=== PATIENT | male | born 1945 | race Caucasian/White ===

== ENCOUNTER 2020-02-03 09:31 | Outpatient (REF) | payer MEDICARE, SELFPAY ==
[2020-02-03 10:55] LABS: MANUAL DIFF FLAG SCAN; PLT CLUMP 1; SCAN SMEAR FLAG 1
[2020-02-03 10:57] LABS: Basophils Absolute Auto 0.1 X10*3/uL (0.0-0.2); Basophils Percent Auto 0.8 % (0-2); Eosinophils Absolute Auto 0.3 X10*3/uL (0.0-0.4); Hematocrit 42.2 % (42-52); Imm Gran Abs Auto 0.04 X10*3/uL (0.00-0.03); Imm Gran Pct Auto 0.7 % (0.0-0.4); Lymphocytes Absolute Auto 1.3 X10*3/uL (1.2-4.9); Mean Corpuscular HGB Conc 33.2 g/dl (31.0-36.0); Mean Corpuscular Hemoglobin 29.2 pg (27.0-33.0); Mean Corpuscular Volume 87.9 fL (80-98); Mean Platelet Volume 11.2 fL (9.4-12.4); Monocytes Absolute Auto 0.5 X10*3/uL (0.1-1.2); Monocytes Percent Auto 8.6 % (2-11); Neutrophils Absolute Auto 3.8 X10*3/uL (2.0-8.3); Neutrophils Percent Auto 63.9 % (45-73)
[2020-02-03 11:02] LABS: Platelet Count 94 X10*3/uL (160-400)
== END 2020-02-03 09:32 | disposition home or self-care (01) ==
LOC: HO.LAB 09:31
PROVIDERS: PCP Internal Medicine; Visit Provider Internal Medicine
DX: D69.6 Thrombocytopenia, unspecified (principal)
CPT/HCPCS: 36415; 85025

== ENCOUNTER 2020-02-26 16:55 | Outpatient (REF) | payer MEDICARE, SELFPAY | END 2020-02-26 16:56 | disposition home or self-care (01) | LOC: HO.LAB 16:55 | PROVIDERS: Visit Provider Internal Medicine | DX: Z20.828 Contact with and (suspected) exposure to other viral communicable diseases (principal) | CPT/HCPCS: C9803; U0003 ==

== ENCOUNTER 2020-09-13 11:06 | Outpatient (REF) | payer MEDICARE, SELFPAY ==
[2020-09-13 12:13] LABS: Glucose Urine UA NEG (NEG); Leukocyte Esterase Urine NEG (NEG); Nitrite Urine NEG (NEG); Specific Gravity - Urine 1.025 (1.005-1.025); Urine Blood NEG (NEG); Urine Ketones NEG (NEG); Urine Protein 2+ MG/DL (NEG-TRACE)
[2020-09-13 12:15] LABS: Appearance Urine CLEAR; Color Urine YELLOW
[2020-09-13 12:22] LABS: RBC Urine 0-2 /HPF (0); WBC Urine 0 /HPF (0-4)
[2020-09-13 12:23] LABS: Basophils Absolute Auto 0.1 X10*3/uL (0.0-0.2); Basophils Percent Auto 0.8 % (0-2); Eosinophils Absolute Auto 0.4 X10*3/uL (0.0-0.4); Eosinophils Percent Auto 5.6 % (0-4); Hemoglobin 13.1 g/dl (14.0-18.0); Imm Gran Abs Auto 0.02 X10*3/uL (0.00-0.03); Imm Gran Pct Auto 0.3 % (0.0-0.4); PLT CLUMP 1; Red Cell Distribution Width 12.7 % (11.0-16.0); SCAN SMEAR FLAG 1
[2020-09-13 12:23] LABS: Squamous Epithelial Cell Urine TRACE /LPF
[2020-09-13 12:26] LABS: Hematocrit 38.8 % (42-52); Lymphocytes Absolute Auto 1.2 X10*3/uL (1.2-4.9); Lymphocytes Percent Auto 19.2 % (20-40); Mean Corpuscular HGB Conc 33.8 g/dl (31.0-36.0); Mean Corpuscular Hemoglobin 29.9 pg (27.0-33.0); Mean Corpuscular Volume 88.6 fL (80-98); Monocytes Absolute Auto 0.5 X10*3/uL (0.1-1.2); Monocytes Percent Auto 7.8 % (2-11); Neutrophils Absolute Auto 4.3 X10*3/uL (2.0-8.3); Neutrophils Percent Auto 66.3 % (45-73); Platelet Count 105 X10*3/uL (160-400); Red Blood Count 4.38 X10*6/uL (4.60-5.80); White Blood Count 6.4 X10*3/uL (4.8-10.8)
[2020-09-13 12:47] LABS: Anion Gap 12 (12-20); Blood Urea Nitrogen 22 mg/dL (9-16); Calcium 11.2 mg/dL (8.4-10.2); Carbon Dioxide 30 mmol/L (22-29); Chloride 101 mmol/L (96-108); Estimated Glomerular Filt Rate 43; Potassium 4.2 mmol/L (3.3-5.1); Sodium 139 mmol/L (135-145)
== END 2020-09-13 11:07 | disposition home or self-care (01) ==
LOC: HO.LAB 11:06
PROVIDERS: PCP Internal Medicine; Visit Provider Internal Medicine Hypertension Specialist
DX: E11.29 Type 2 diabetes mellitus with other diabetic kidney complication (principal); I12.9 Hypertensive chronic kidney disease with stage 1 through stage 4 chronic kidney disease, or unspecified chronic kidney disease; N18.30 Chronic kidney disease, stage 3 unspecified; N20.0 Calculus of kidney
CPT/HCPCS: 36415; 80051; 81001; 82310; 82565; 84520; 85025

== ENCOUNTER 2020-09-16 08:00 | Outpatient (REF) | payer MEDICARE, SELFPAY ==
[2020-09-17 12:19] LABS: Calcium 10.4 mg/dL (8.4-10.2)
== END 2020-09-16 08:01 | disposition home or self-care (01) ==
LOC: HO.LNP 08:00
PROVIDERS: Visit Provider Internal Medicine
DX: E83.52 Hypercalcemia (principal)
CPT/HCPCS: 82310

== ENCOUNTER 2020-11-25 10:12 | Outpatient (REF) | payer MEDICARE, SELFPAY ==
[2020-11-25 10:57] LABS: Estimated Average Glucose 160 mg/dL; Hemoglobin A1c % 7.2 %
[2020-11-25 10:58] LABS: Alanine Aminotransferase 34 U/L (0-40); Albumin Level 4.1 g/dL (3.5-5.0); Alkaline Phosphatase 83 U/L (39-117); Aspartate Amino Transferase 23 U/L (5-37); Bilirubin Direct 0.2 mg/dL (0.0-0.5); Bilirubin Total 0.7 mg/dL (0.0-1.0); Cholesterol 112 mg/dL; Glucose Fasting 159 mg/dL (60-99); HDL Cholesterol 26 mg/dL; LDL Cholesterol Calculated 12 mg/dl; Total Protein 6.7 g/dL (6.5-8.0); Triglycerides 374 mg/dL
[2020-11-25 11:02] LABS: Reflex LDLD? No
== END 2020-11-25 10:13 | disposition home or self-care (01) ==
LOC: HO.LNP 10:12
PROVIDERS: Visit Provider Internal Medicine
DX: E11.40 Type 2 diabetes mellitus with diabetic neuropathy, unspecified (principal); E78.00 Pure hypercholesterolemia, unspecified
CPT/HCPCS: 80061; 80076; 82947; 83036

== ENCOUNTER 2021-06-02 11:40 | Outpatient (REF) | payer MEDICARE, SELFPAY ==
[2021-06-02 11:45] LABS: MANUAL DIFF FLAG NO
[2021-06-02 11:56] LABS: Appearance Urine CLEAR; Color Urine YELLOW; Glucose Urine UA NEG (NEG); Leukocyte Esterase Urine NEG (NEG); Nitrite Urine NEG (NEG); Specific Gravity - Urine 1.025 (1.005-1.025); Urine Blood NEG (NEG); Urine Ketones NEG (NEG); Urine Protein 2+ MG/DL (NEG-TRACE)
[2021-06-02 12:00] LABS: Basophils Absolute Auto 0.1 X10*3/uL (0.0-0.2); Basophils Percent Auto 0.8 % (0-2); Eosinophils Absolute Auto 0.4 X10*3/uL (0.0-0.4); Eosinophils Percent Auto 6.1 % (0-4); Hematocrit 40.6 % (42.0-52.0); Hemoglobin 13.6 g/dl (14.0-18.0); Imm Gran Abs Auto 0.03 X10*3/uL (0.00-0.03); Imm Gran Pct Auto 0.4 % (0.0-0.4); Lymphocytes Absolute Auto 1.8 X10*3/uL (1.2-4.9); Lymphocytes Percent Auto 24.8 % (20-40); Mean Corpuscular HGB Conc 33.5 g/dl (31.0-36.0); Mean Corpuscular Hemoglobin 29.4 pg (27.0-33.0); Mean Corpuscular Volume 87.9 fL (80.0-98.0); Mean Platelet Volume 11.4 fL (9.4-12.4); Monocytes Absolute Auto 0.7 X10*3/uL (0.1-1.2); Monocytes Percent Auto 9.3 % (2-11); Neutrophils Absolute Auto 4.2 x10*3/uL (2.0-8.3); Neutrophils Percent Auto 58.6 % (45-73); Platelet Count 103 X10*3/uL (160-400); Red Blood Count 4.62 X10*6/uL (4.60-5.80); Red Cell Distribution Width 13.2 % (11.0-16.0); White Blood Count 7.1 X10*3/uL (4.8-10.8)
[2021-06-02 12:05] LABS: Alanine Aminotransferase 38 U/L (0-40); Albumin Level 4.2 g/dL (3.5-5.0); Alkaline Phosphatase 75 U/L (39-117); Anion Gap 11 (12-20); Aspartate Amino Transferase 25 U/L (5-37); Bilirubin Total 0.8 mg/dL (0.0-1.0); Blood Urea Nitrogen 30 mg/dL (9-16); Calcium 10.1 mg/dL (8.4-10.2); Carbon Dioxide 29 mmol/L (22-29); Chloride 102 mmol/L (96-108); Cholesterol 131 mg/dL; Estimated Glomerular Filt Rate 37; Glucose Fasting 151 mg/dL (60-99); HDL Cholesterol 25 mg/dL; Sodium 138 mmol/L (135-145); Total Protein 6.9 g/dL (6.5-8.0); Triglycerides 487 mg/dL
[2021-06-02 12:12] LABS: Estimated Average Glucose 171 mg/dL; Hemoglobin A1c % 7.6 %
[2021-06-02 12:28] LABS: RBC Urine 0 /HPF (0); Squamous Epithelial Cell Urine TRACE /LPF; WBC Urine 0 /HPF (0-4)
[2021-06-02 12:57] LABS: PSA,Total (Free>4and<10) 2.66 ng/mL (0.00-4.00)
[2021-06-02 13:05] LABS: Creatinine Urine 74.71 mg/dL
[2021-06-02 13:28] LABS: Microalbum/Creatinine Ratio Ur 686.6 ug/mg cr
== END 2021-06-02 11:41 | disposition home or self-care (01) ==
LOC: HO.LNP 11:40
PROVIDERS: PCP Internal Medicine; Visit Provider Internal Medicine
DX: Z12.5 Encounter for screening for malignant neoplasm of prostate (principal); E11.40 Type 2 diabetes mellitus with diabetic neuropathy, unspecified; D69.6 Thrombocytopenia, unspecified; E78.00 Pure hypercholesterolemia, unspecified; N40.0 Benign prostatic hyperplasia without lower urinary tract symptoms
CPT/HCPCS: 80053; 80061; 81001; 81003; 82043; 83036; 84153; 85025

== ENCOUNTER 2021-09-20 14:44 | Outpatient (REF) | payer MEDICARE, SELFPAY ==
[2021-09-20 15:01] LABS: MANUAL DIFF FLAG NO
[2021-09-20 15:50] LABS: Basophils Absolute Auto 0.1 X10*3/uL (0.0-0.2); Basophils Percent Auto 0.8 % (0-2); Eosinophils Absolute Auto 0.4 X10*3/uL (0.0-0.4); Eosinophils Percent Auto 5.4 % (0-4); Hemoglobin 13.9 g/dl (14.0-18.0); Imm Gran Abs Auto 0.02 X10*3/uL (0.00-0.03); Imm Gran Pct Auto 0.3 % (0.0-0.4); Lymphocytes Absolute Auto 1.5 X10*3/uL (1.2-4.9); Lymphocytes Percent Auto 20.2 % (20-40); Mean Corpuscular HGB Conc 33.1 g/dl (31.0-36.0); Mean Corpuscular Hemoglobin 29.1 pg (27.0-33.0); Mean Corpuscular Volume 87.9 fL (80.0-98.0); Monocytes Absolute Auto 0.5 X10*3/uL (0.1-1.2); Neutrophils Absolute Auto 4.9 x10*3/uL (2.0-8.3); Neutrophils Percent Auto 66.3 % (45-73); Platelet Count 131 X10*3/uL (160-400); Red Blood Count 4.78 X10*6/uL (4.60-5.80); Red Cell Distribution Width 13.2 % (11.0-16.0); White Blood Count 7.4 X10*3/uL (4.8-10.8)
[2021-09-20 16:04] LABS: Creatinine Urine 128.93 mg/dL; Protein/Creatinine Ratio, Ur 0.57 (<0.2); Total Protein Urine Random 73 mg/dL (<12)
[2021-09-20 16:14] LABS: Alanine Aminotransferase 34 U/L (0-40); Albumin Level 4.3 g/dL (3.5-5.0); Alkaline Phosphatase 81 U/L (39-117); Anion Gap 14 (12-20); Aspartate Amino Transferase 22 U/L (5-37); Bilirubin Total 1.1 mg/dL (0.0-1.0); Blood Urea Nitrogen 27 mg/dL (9-16); Calcium 10.6 mg/dL (8.4-10.2); Carbon Dioxide 26 mmol/L (22-29); Chloride 104 mmol/L (96-108); Estimated Glomerular Filt Rate 35; Glucose Random 132 mg/dL (60-115); Sodium 139 mmol/L (135-145); Total Protein 7.1 g/dL (6.5-8.0)
== END 2021-09-20 14:45 | disposition home or self-care (01) ==
LOC: HO.LAB 14:44
PROVIDERS: PCP Internal Medicine; Visit Provider Internal Medicine Hypertension Specialist
DX: I12.9 Hypertensive chronic kidney disease with stage 1 through stage 4 chronic kidney disease, or unspecified chronic kidney disease (principal); N18.9 Chronic kidney disease, unspecified
CPT/HCPCS: 36415; 80053; 84156; 85025

== ENCOUNTER 2021-12-09 10:28 | Outpatient (REF) | payer MEDICARE, SELFPAY ==
[2021-12-09 11:31] LABS: Estimated Average Glucose 157 mg/dL; Hemoglobin A1c % 7.1 %
[2021-12-09 11:36] LABS: Alanine Aminotransferase 31 U/L (0-40); Albumin Level 4.2 g/dL (3.5-5.0); Alkaline Phosphatase 92 U/L (39-117); Aspartate Amino Transferase 20 U/L (5-37); Bilirubin Direct 0.3 mg/dL (0.0-0.5); Bilirubin Total 0.8 mg/dL (0.0-1.0); Cholesterol 114 mg/dL; Glucose Fasting 153 mg/dL (60-99); HDL Cholesterol 26 mg/dL; LDL Cholesterol Calculated 28 mg/dl; Total Protein 6.9 g/dL (6.5-8.0); Triglycerides 300 mg/dL
[2021-12-09 13:27] LABS: Reflex LDLD? No
== END 2021-12-09 10:29 | disposition home or self-care (01) ==
LOC: HO.LNP 10:28
PROVIDERS: Visit Provider Internal Medicine
DX: Z13.89 Encounter for screening for other disorder (principal)
CPT/HCPCS: 80061; 80076; 82947; 83036

== ENCOUNTER 2022-01-19 14:28 | Outpatient (REF) | payer MEDICARE, SELFPAY ==
[2022-01-19 15:09] LABS: Appearance Urine Clear; Color Urine Yellow; Glucose Urine UA >=1000 mg/dL (Negative); Leukocyte Esterase Urine Negative (Negative); Nitrite Urine Negative (Negative); PH 5.5 (5.0-9.0); Specific Gravity - Urine 1.025 (1.005-1.025); UMIC TRIGGER UA YES; Urine Blood Negative (Negative); Urine Ketones Negative (Negative); Urine Protein 100 (2+) mg/dL (Neg-Trace)
[2022-01-19 15:11] LABS: Bacteria Urine None Seen (None Seen); Hyaline Casts Urine 0-2 /LPF (0-2); RBC Urine 0-2 /HPF (0-2); Squamous Epithelial Cell Urine 0-2 /HPF (0-2); WBC Urine 0-5 /HPF (0-5)
[2022-01-19 15:43] LABS: Alanine Aminotransferase 40 U/L (0-40); Albumin Level 4.4 g/dL (3.5-5.0); Alkaline Phosphatase 100 U/L (39-117); Anion Gap 18 (12-20); Aspartate Amino Transferase 25 U/L (5-37); Bilirubin Total 0.5 mg/dL (0.0-1.0); Blood Urea Nitrogen 31 mg/dL (9-16); Calcium 10.4 mg/dL (8.4-10.2); Carbon Dioxide 25 mmol/L (22-29); Chloride 103 mmol/L (96-108); Estimated Glomerular Filt Rate 37; Glucose Random 135 mg/dL (60-115); Potassium 4.6 mmol/L (3.3-5.1); Sodium 141 mmol/L (135-145); Total Protein 7.2 g/dL (6.5-8.0)
[2022-01-19 15:44] LABS: Creatinine Urine 78.03 mg/dL; Protein/Creatinine Ratio, Ur 0.83 (<0.2); Total Protein Urine Random 65 mg/dL (<12)
[2022-01-19 16:06] LABS: Vitamin D 25-OH Total 67.7 ng/mL (>30)
[2022-01-20 12:47] LABS: Calcium (PTHI) 10.2 mg/dL (8.6-10.3); PTHI 48 pg/mL (16-77)
== END 2022-01-19 14:29 | disposition home or self-care (01) ==
LOC: HO.LAB 14:28
PROVIDERS: PCP Internal Medicine; Visit Provider Internal Medicine Hypertension Specialist
DX: N18.31 Chronic kidney disease, stage 3a (principal)
CPT/HCPCS: 36415; 80053; 81001; 81003; 82306; 83970; 84156

== ENCOUNTER 2022-02-13 10:03 | Outpatient (REF) | payer MEDICARE, SELFPAY ==
[2022-02-14 13:06] LABS: Calcium (PTHI) 10.2 mg/dL (8.6-10.3); PTHI 34 pg/mL (16-77)
[2022-02-14 23:07] LABS: Prot Elec - Alpha1 0.3 g/dL (0.2-0.3); Prot Elec - Alpha2 0.8 g/dL (0.5-0.9); Prot Elec - Beta 1 0.4 g/dL (0.4-0.6); Prot Elec - Beta 2 0.3 g/dL (0.2-0.5); Prot Elec - Gamma 0.9 g/dL (0.8-1.7); Prot Elec - Total Protein 6.7 g/dL (6.1-8.1)
[2022-02-15 15:02] LABS: IgA 129 mg/dL (70-320); IgG 987 mg/dL (600-1540); IgM 162 mg/dL (50-300)
[2022-02-17 20:11] LABS: Kappa Light Chains Quant. RU <1.00 mg/dL (<2.00); Lambda Light Chains Quant. RU <1.00 mg/dL (<2.00)
== END 2022-02-13 10:04 | disposition home or self-care (01) ==
LOC: HO.10HDL 10:03
PROVIDERS: Visit Provider Internal Medicine Hypertension Specialist
DX: N18.32 Chronic kidney disease, stage 3b (principal)
CPT/HCPCS: 36415; 82784; 83883; 83970; 84165; 86334

== ENCOUNTER 2022-06-09 07:47 | Outpatient (REF) | payer MEDICARE, SELFPAY ==
[2022-06-09 10:42] LABS: MANUAL DIFF FLAG NO
[2022-06-09 10:45] LABS: Basophils Percent Auto 0.5 % (0-2); Eosinophils Absolute Auto 0.5 X10*3/uL (0.0-0.4); Eosinophils Percent Auto 5.8 % (0-4); Hematocrit 37.2 % (42.0-52.0); Hemoglobin 12.3 g/dl (14.0-18.0); Imm Gran Abs Auto 0.07 X10*3/uL (0.00-0.03); Imm Gran Pct Auto 0.9 % (0.0-0.4); Lymphocytes Absolute Auto 1.2 X10*3/uL (1.2-4.9); Lymphocytes Percent Auto 14.5 % (20-40); Mean Corpuscular HGB Conc 33.1 g/dl (31.0-36.0); Mean Corpuscular Hemoglobin 28.8 pg (27.0-33.0); Mean Corpuscular Volume 87.1 fL (80.0-98.0); Mean Platelet Volume 10.8 fL (9.4-12.4); Monocytes Absolute Auto 0.7 X10*3/uL (0.1-1.2); Monocytes Percent Auto 8.4 % (2-11); Neutrophils Absolute Auto 5.6 x10*3/uL (2.0-8.3); Neutrophils Percent Auto 69.9 % (45-73); Platelet Count 154 X10*3/uL (160-400); Red Blood Count 4.27 X10*6/uL (4.60-5.80); Red Cell Distribution Width 13.3 % (11.0-16.0)
[2022-06-09 10:52] LABS: Anion Gap 13 (12-20); Blood Urea Nitrogen 27 mg/dL (9-16); Calcium 9.4 mg/dL (8.4-10.2); Carbon Dioxide 26 mmol/L (22-29); Chloride 104 mmol/L (96-108); Estimated Glomerular Filt Rate 41; Glucose Random 183 mg/dL (60-115); Potassium 4.4 mmol/L (3.3-5.1); Sodium 139 mmol/L (135-145)
== END 2022-06-09 07:48 | disposition home or self-care (01) ==
LOC: HO.10HDL 07:47
PROVIDERS: Visit Provider Internal Medicine Hypertension Specialist
DX: Z13.89 Encounter for screening for other disorder (principal)
CPT/HCPCS: 36415; 80048; 85025

== ENCOUNTER 2022-06-09 11:07 | Outpatient (REF) | payer MEDICARE, SELFPAY ==
[2022-06-09 11:12] LABS: MANUAL DIFF FLAG NO
[2022-06-09 11:41] LABS: Basophils Absolute Auto 0.1 X10*3/uL (0.0-0.2); Basophils Percent Auto 0.6 % (0-2); Eosinophils Absolute Auto 0.5 X10*3/uL (0.0-0.4); Eosinophils Percent Auto 6.4 % (0-4); Hemoglobin 12.5 g/dl (14.0-18.0); Imm Gran Abs Auto 0.04 X10*3/uL (0.00-0.03); Imm Gran Pct Auto 0.5 % (0.0-0.4); Lymphocytes Absolute Auto 1.2 X10*3/uL (1.2-4.9); Lymphocytes Percent Auto 15.9 % (20-40); Mean Corpuscular HGB Conc 32.9 g/dl (31.0-36.0); Mean Corpuscular Hemoglobin 28.9 pg (27.0-33.0); Mean Platelet Volume 11.1 fL (9.4-12.4); Monocytes Absolute Auto 0.7 X10*3/uL (0.1-1.2); Neutrophils Absolute Auto 5.3 x10*3/uL (2.0-8.3); Neutrophils Percent Auto 67.6 % (45-73); Platelet Count 153 X10*3/uL (160-400); Red Blood Count 4.32 X10*6/uL (4.60-5.80); Red Cell Distribution Width 13.3 % (11.0-16.0); White Blood Count 7.8 X10*3/uL (4.8-10.8)
[2022-06-09 11:46] LABS: Appearance Urine Clear; Color Urine Yellow; Glucose Urine UA >=1000 mg/dL (Negative); Leukocyte Esterase Urine Negative (Negative); Nitrite Urine Negative (Negative); PH 5.5 (5.0-9.0); Specific Gravity - Urine 1.025 (1.005-1.025); UMIC TRIGGER UACC YES; Urine Blood Negative (Negative); Urine Ketones Negative (Negative); Urine Protein 100 (2+) mg/dL (Neg-Trace)
[2022-06-09 11:50] LABS: Estimated Average Glucose 180 mg/dL; Hemoglobin A1c % 7.9 %
[2022-06-09 11:52] LABS: Bacteria Urine None Seen (None Seen); Hyaline Casts Urine 0-2 /LPF (0-2); RBC Urine 0-2 /HPF (0-2); Squamous Epithelial Cell Urine 0-2 /HPF (0-2); WBC Urine 0-5 /HPF (0-5)
[2022-06-09 12:07] LABS: Alanine Aminotransferase 34 U/L (0-40); Albumin Level 3.8 g/dL (3.5-5.0); Alkaline Phosphatase 88 U/L (39-117); Anion Gap 14 (12-20); Aspartate Amino Transferase 26 U/L (5-37); Bilirubin Total 1.5 mg/dL (0.0-1.0); Blood Urea Nitrogen 28 mg/dL (9-16); Calcium 9.2 mg/dL (8.4-10.2); Carbon Dioxide 25 mmol/L (22-29); Chloride 105 mmol/L (96-108); Cholesterol 108 mg/dL; Estimated Glomerular Filt Rate 39; Glucose Fasting 185 mg/dL (60-99); HDL Cholesterol 25 mg/dL; LDL Cholesterol Calculated 43 mg/dl; Potassium 4.3 mmol/L (3.3-5.1); Sodium 140 mmol/L (135-145); Total Protein 6.2 g/dL (6.5-8.0); Triglycerides 202 mg/dL
[2022-06-09 12:25] LABS: PSA,Total (Free>4and<10) 4.23 ng/mL (0.00-4.00)
[2022-06-09 12:41] LABS: Creatinine Urine 100.29 mg/dL
[2022-06-11 10:14] LABS: Free Prostate Spec Ag 0.8 ng/mL; Percent Free Prostate Spec Ag 22 % (calc) (>25); Prostate Specific Ag Total 3.6 ng/mL (< OR = 4.0)
== END 2022-06-09 11:08 | disposition home or self-care (01) ==
LOC: HO.LNP 11:07
PROVIDERS: Visit Provider Internal Medicine
DX: Z12.5 Encounter for screening for malignant neoplasm of prostate (principal); E11.40 Type 2 diabetes mellitus with diabetic neuropathy, unspecified; N40.0 Benign prostatic hyperplasia without lower urinary tract symptoms; D69.6 Thrombocytopenia, unspecified; E78.00 Pure hypercholesterolemia, unspecified
CPT/HCPCS: 36415; 80048; 80053; 80061; 81001; 82043; 83036; 84153; 84154; 85025

== ENCOUNTER 2022-07-17 10:46 | Outpatient (REF) | payer MEDICARE, SELFPAY ==
[2022-07-17 12:17] LABS: PSA,Total (Free>4and<10) 3.78 ng/mL (0.00-4.00)
== END 2022-07-17 10:47 | disposition home or self-care (01) ==
LOC: HO.LNP 10:46
PROVIDERS: Visit Provider Internal Medicine
DX: Z12.5 Encounter for screening for malignant neoplasm of prostate (principal); R97.20 Elevated prostate specific antigen [PSA]
CPT/HCPCS: 84153

== ENCOUNTER 2022-09-26 14:39 | Outpatient (REF) | payer MEDICARE, SELFPAY ==
--- NOTE | ~2022-09-26 | US_ITS ---
EXAMINATION: Noninvasive assessment of the bilateral lower extremities with ARTERIAL DUPLEX. CLINICAL INFORMATION: Peripheral vascular disease, claudication TECHNIQUE: Duplex Doppler techniques with waveform analysis and measurement of velocities in the bilateral common femoral, profunda femoris, superficial femoral, popliteal and tibial arteries were performed. COMPARISON: None FINDINGS: DIRECT DUPLEX DOPPLER FINDINGS: RIGHT LEG: Common femoral artery: 103 cm/s, phasicity: Triphasic Profunda femoris artery: 77.1 cm/s, phasicity: Biphasic Superficial femoral artery (proximal): 106 cm/s, phasicity: Triphasic Superficial femoral artery (mid): 120 cm/s, phasicity: Triphasic Superficial femoral artery (distal): 79.9 cm/s, phasicity: Triphasic Popliteal artery: 62.6 cm/s, phasicity: Triphasic Posterior tibial artery(distal): 198 cm/s, phasicity: Triphasic Peroneal artery: 85.6 cm/s, phasicity: Triphasic LEFT LEG: Common femoral artery: 92.5 cm/s, phasicity: Triphasic Profunda femoris artery: 77.7 cm/s, phasicity: Biphasic Superficial femoral artery (proximal): 106 cm/s, phasicity: Triphasic Superficial femoral artery (mid): 113 cm/s, phasicity: Triphasic Superficial femoral artery (distal): 70.8 cm/s, phasicity: Triphasic Popliteal artery: 56.0 cm/s, phasicity: Triphasic Posterior tibial artery: 95.7 cm/s, phasicity: Triphasic Peroneal artery: 83.1 cm/s, phasicity: Triphasic US/US arterial duplex LE BI IMPRESSION: Right leg: Patent arterial flow throughout the right lower extremity. Elevated velocity seen in the distal posterior tibial artery consistent with underlying stenosis Left leg: Patent arterial flow throughout the left lower extremity. No significant stenosis
== END 2022-09-26 14:40 | disposition home or self-care (01) ==
LOC: HO.US 14:39
PROVIDERS: PCP Internal Medicine; Visit Provider Internal Medicine
DX: I73.9 Peripheral vascular disease, unspecified (principal)
CPT/HCPCS: 93925

== ENCOUNTER 2022-10-27 11:05 | Outpatient (REF) | payer MEDICARE, SELFPAY | END 2022-10-27 11:06 | disposition home or self-care (01) | LOC: HO.LNP 11:05 | PROVIDERS: Visit Provider Internal Medicine | DX: I73.9 Peripheral vascular disease, unspecified (principal); Z12.5 Encounter for screening for malignant neoplasm of prostate | CPT/HCPCS: 84153 ==

== ENCOUNTER 2022-12-15 11:46 | Outpatient (REF) | payer MEDICARE, SELFPAY ==
[2022-12-15 12:38] LABS: Alanine Aminotransferase 34 U/L (0-40); Albumin Level 4.1 g/dL (3.5-5.0); Alkaline Phosphatase 85 U/L (39-117); Aspartate Amino Transferase 26 U/L (5-37); Bilirubin Direct 0.2 mg/dL (0.0-0.5); Bilirubin Total 0.8 mg/dL (0.0-1.0); Glucose Fasting 160 mg/dL (60-99)
[2022-12-15 12:44] LABS: Cholesterol 111 mg/dL (<200); HDL Cholesterol 26 mg/dL (>40); Triglycerides 430 mg/dL (<150)
[2022-12-15 12:47] LABS: Estimated Average Glucose 157 mg/dL; Hemoglobin A1c % 7.1 % (<6.0)
[2022-12-15 15:51] LABS: Reflex LDLD? Yes
[2022-12-17 01:03] LABS: LDL Cholesterol Direct 37 mg/dL (<100)
== END 2022-12-15 11:47 | disposition home or self-care (01) ==
LOC: HO.LNP 11:46
PROVIDERS: Visit Provider Internal Medicine
DX: E11.40 Type 2 diabetes mellitus with diabetic neuropathy, unspecified (principal); E78.00 Pure hypercholesterolemia, unspecified
CPT/HCPCS: 80061; 80076; 82947; 83036; 83721

== ENCOUNTER 2023-01-04 12:24 | Outpatient (REF) | payer MEDICARE, SELFPAY ==
[2023-01-04 14:01] LABS: Anion Gap 13 (12-20); Blood Urea Nitrogen 28 mg/dL (9-16); Calcium 10.4 mg/dL (8.4-10.2); Carbon Dioxide 23 mmol/L (22-29); Chloride 105 mmol/L (96-108); Estimated Glomerular Filt Rate 38; Glucose Random 298 mg/dL (60-115); Potassium 4.7 mmol/L (3.3-5.1); Sodium 136 mmol/L (135-145)
== END 2023-01-04 12:25 | disposition home or self-care (01) ==
LOC: HO.LAB 12:24
PROVIDERS: PCP Internal Medicine; Visit Provider Internal Medicine Hypertension Specialist
DX: N18.31 Chronic kidney disease, stage 3a (principal)
CPT/HCPCS: 36415; 80048

== ENCOUNTER 2023-01-08 11:36 | Outpatient (REF) | payer MEDICARE, SELFPAY ==
[2023-01-08 12:47] LABS: Calcium 10.3 mg/dL (8.4-10.2)
== END 2023-01-08 11:37 | disposition home or self-care (01) ==
LOC: HO.LNP 11:36
PROVIDERS: Visit Provider Internal Medicine
DX: E83.52 Hypercalcemia (principal)
CPT/HCPCS: 82310

== ENCOUNTER 2023-01-26 11:19 | Outpatient (REF) | payer MEDICARE, SELFPAY | END 2023-01-26 11:20 | disposition home or self-care (01) | LOC: HO.LNP 11:19 | PROVIDERS: Visit Provider Internal Medicine | DX: Z12.5 Encounter for screening for malignant neoplasm of prostate (principal); N40.0 Benign prostatic hyperplasia without lower urinary tract symptoms | CPT/HCPCS: 84153 ==

== ENCOUNTER 2023-05-15 08:47 | Outpatient (REF) | payer MEDICARE, SELFPAY ==
--- NOTE | ~2023-05-15 | MR_ITS ---
EXAMINATION: MR BRAIN WITHOUT CONTRAST CLINICAL INFORMATION: Balance disorder. COMPARISON: None available. TECHNIQUE: Multiplanar, multisequence imaging of the brain was performed without contrast. Limited study with motion artifacts. FINDINGS: No diffusion abnormalities are identified to suggest an acute infarct. No mass effect or midline shift is seen. Nonspecific mild white matter signal changes may be due to chronic microangiopathy. There is [id number] generalized brain parenchymal volume loss with concordant mild ex vacuo dilatation of the ventricles. No extra-axial fluid collections are seen. The brainstem and cerebellum are normal. The gradient refocused acquisition is normal. The craniovertebral junction, marrow signal, and midline structures are normal. The major intracranial flow voids at the level of the [place] are preserved. The dural venous sinus flow voids are maintained. The mastoid air cells are well aerated. There is mild mucosal thickening in the ethmoid and maxillary sinuses with small retention cysts in the dependent maxillary antrum. MR/MR head/brain wo con IMPRESSION: No acute intracranial process. Mild chronic white matter microangiopathy and generalized brain parenchymal volume loss.
== END 2023-05-15 08:48 | disposition home or self-care (01) ==
LOC: HO.MRI 08:47
PROVIDERS: PCP Internal Medicine; Visit Provider Internal Medicine
DX: R26.89 Other abnormalities of gait and mobility (principal)
CPT/HCPCS: 70551

== ENCOUNTER 2023-06-12 07:41 | Outpatient (REF) | payer MEDICARE, SELFPAY ==
[2023-06-12 10:54] LABS: Appearance Urine Clear; Color Urine Yellow; Glucose Urine UA >=1000 mg/dL (Negative); Leukocyte Esterase Urine Negative (Negative); Nitrite Urine Negative (Negative); Specific Gravity - Urine 1.025 (1.005-1.025); UMIC TRIGGER UACC YES; Urine Blood Negative (Negative); Urine Ketones Negative (Negative); Urine Protein 30 (1+) mg/dL (Neg-Trace)
[2023-06-12 10:57] LABS: Bacteria Urine None Seen (None Seen); Hyaline Casts Urine 0-2 /LPF (0-2); RBC Urine 0-2 /HPF (0-2); Squamous Epithelial Cell Urine 0-2 /HPF (0-2); WBC Urine 0-5 /HPF (0-5)
[2023-06-12 11:01] LABS: Estimated Average Glucose 174 mg/dL; Hemoglobin A1c % 7.7 % (<6.0)
[2023-06-12 11:11] LABS: Imm Gran Abs Auto 0.06 X10*3/uL (0.00-0.03); Imm Gran Pct Auto 0.7 % (0.0-0.4); Lymphocytes Absolute Auto 1.5 X10*3/uL (1.2-4.9); Lymphocytes Percent Auto 17.9 % (20-40); MANUAL DIFF FLAG SCAN; PLT CLUMP 1; SCAN SMEAR FLAG 1
[2023-06-12 11:13] LABS: Alanine Aminotransferase 36 U/L (0-40); Alkaline Phosphatase 86 U/L (39-117); Anion Gap 12 (12-20); Aspartate Amino Transferase 27 U/L (5-37); Basophils Absolute Auto 0.1 X10*3/uL (0.0-0.2); Basophils Percent Auto 0.7 % (0-2); Bilirubin Total 0.7 mg/dL (0.0-1.0); Blood Urea Nitrogen 29 mg/dL (9-16); Calcium 9.7 mg/dL (8.4-10.2); Carbon Dioxide 25 mmol/L (22-29); Chloride 106 mmol/L (96-108); Cholesterol 125 mg/dL (<200); Eosinophils Absolute Auto 0.4 X10*3/uL (0.0-0.4); Eosinophils Percent Auto 4.9 % (0-4); Estimated Glomerular Filt Rate 36; Glucose Fasting 189 mg/dL (60-99); HDL Cholesterol 26 mg/dL (>40); Hematocrit 39.9 % (42.0-52.0); Hemoglobin 13.9 g/dl (14.0-18.0); Mean Corpuscular HGB Conc 34.8 g/dl (31.0-36.0); Mean Corpuscular Hemoglobin 29.9 pg (27.0-33.0); Mean Corpuscular Volume 85.8 fL (80.0-98.0); Mean Platelet Volume 11.5 fL (9.4-12.4); Monocytes Absolute Auto 0.6 X10*3/uL (0.1-1.2); Monocytes Percent Auto 7.4 % (2-11); NRBC Pct Auto 0.4 /100WBC (0.0-0.2); Neutrophils Absolute Auto 5.6 x10*3/uL (2.0-8.3); Neutrophils Percent Auto 68.4 % (45-73); Potassium 4.2 mmol/L (3.3-5.1); Red Blood Count 4.65 X10*6/uL (4.60-5.80); Red Cell Distribution Width 13.2 % (11.0-16.0); Sodium 139 mmol/L (135-145); Total Protein 6.8 g/dL (6.5-8.0); Triglycerides 432 mg/dL (<150)
[2023-06-12 11:21] LABS: White Blood Count 8.2 X10*3/uL (4.8-10.8)
[2023-06-12 11:22] LABS: Creatinine Urine 86.88 mg/dL; Microalbum/Creatinine Ratio Ur 319.9 ug/mg cr (<30)
[2023-06-12 11:45] LABS: Platelet Count 113 X10*3/uL (160-400); SLIDE REVIEW VERIFIED
== END 2023-06-12 07:42 | disposition home or self-care (01) ==
LOC: HO.10HDL 07:41
PROVIDERS: Visit Provider Internal Medicine
DX: E11.40 Type 2 diabetes mellitus with diabetic neuropathy, unspecified (principal); E78.00 Pure hypercholesterolemia, unspecified; N40.0 Benign prostatic hyperplasia without lower urinary tract symptoms; E83.52 Hypercalcemia; I10 Essential (primary) hypertension
CPT/HCPCS: 36415; 80053; 80061; 81001; 82043; 82570; 83036; 85025

== ENCOUNTER 2023-06-29 09:47 | Outpatient (REF) | payer MEDICARE, SELFPAY ==
[2023-06-29 11:49] LABS: MANUAL DIFF FLAG NO
[2023-06-29 12:04] LABS: Basophils Absolute Auto 0.1 X10*3/uL (0.0-0.2); Eosinophils Absolute Auto 0.4 X10*3/uL (0.0-0.4); Eosinophils Percent Auto 6.5 % (0-4); Hematocrit 39.7 % (42.0-52.0); Hemoglobin 13.5 g/dl (14.0-18.0); Imm Gran Abs Auto 0.02 X10*3/uL (0.00-0.03); Imm Gran Pct Auto 0.3 % (0.0-0.4); Lymphocytes Absolute Auto 1.5 X10*3/uL (1.2-4.9); Lymphocytes Percent Auto 23.8 % (20-40); Mean Corpuscular Hemoglobin 29.9 pg (27.0-33.0); Mean Corpuscular Volume 87.8 fL (80.0-98.0); Mean Platelet Volume 10.8 fL (9.4-12.4); Monocytes Absolute Auto 0.5 X10*3/uL (0.1-1.2); Monocytes Percent Auto 8.6 % (2-11); Neutrophils Absolute Auto 3.7 x10*3/uL (2.0-8.3); Neutrophils Percent Auto 59.8 % (45-73); Red Blood Count 4.52 X10*6/uL (4.60-5.80); Red Cell Distribution Width 13.7 % (11.0-16.0); White Blood Count 6.2 X10*3/uL (4.8-10.8)
[2023-06-29 12:05] LABS: Platelet Count 98 X10*3/uL (160-400)
[2023-06-29 12:53] LABS: Parathyroid Hormone Intact 45.5 pg/mL (8.7-77.1)
[2023-06-29 12:58] LABS: Alanine Aminotransferase 29 U/L (0-40); Alkaline Phosphatase 77 U/L (39-117); Anion Gap 10 (12-20); Aspartate Amino Transferase 20 U/L (5-37); Bilirubin Total 0.6 mg/dL (0.0-1.0); Blood Urea Nitrogen 30 mg/dL (9-16); Calcium 10.3 mg/dL (8.4-10.2); Carbon Dioxide 28 mmol/L (22-29); Chloride 108 mmol/L (96-108); Estimated Glomerular Filt Rate 33; Glucose Random 177 mg/dL (60-115); Potassium 4.5 mmol/L (3.3-5.1); Sodium 141 mmol/L (135-145); Total Protein 6.7 g/dL (6.5-8.0)
== END 2023-06-29 09:48 | disposition home or self-care (01) ==
LOC: HO.10HDL 09:47
PROVIDERS: Visit Provider Internal Medicine Hypertension Specialist
DX: N18.30 Chronic kidney disease, stage 3 unspecified (principal)
CPT/HCPCS: 36415; 80053; 83970; 85025

== ENCOUNTER 2023-07-03 13:35 | Outpatient (AMB) | payer MEDICARE, SELFPAY ==
[2023-07-03 13:42] VITALS: BP 90/58; PULSE 76; O2SAT 98; BMI 28.5
--- NOTE | 2023-07-03 13:42 | HO.NEPHOV ---
HPI HPI Comments History of Present Illness Details 78-year-old man with a showed nephrolithiasis and chronic kidney disease. He is here for semiannual follow-up. He has been having unsteady gait. Waiting to see Neurology. He continues to take Tums. [facility] Social History (Updated 07/03/23 @ 13:45 by Elma Cuevas) Alcohol intake: current Patient Tobacco Use Status: Former Tobacco user Vital Signs 07/03/23 13:42 Height 5 ft 11 in Weight 204 lb 6 oz BMI 28.5 BP 90/58 L Blood Pressure Location Lt brachial Position Sitting Pulse 76 Pulse Source Pulse Oximeter Pulse Oximetry (%) 98 Oxygen Delivery Method Room Air Physical Exam Vital Signs: Last Vital Signs Pulse 76 07/03/23 13:42 BP 90/58 L 07/03/23 13:42 Pulse Ox 98 07/03/23 13:42 Oxygen Delivery Method Room Air 07/03/23 13:42 BMI result Body Mass Index 28.5 Const General: comfortable Nutritional Appearance: well nourished Orientation/consciousness: patient oriented x3 HEENT Head: No normal to inspection Mouth: moist mucous membranes Neck Neck: Yes supple and Yes no JVD Resp Auscultation: clear to auscultation bilaterally, no rales and rub present Cardio Jugular venous distension: no JVD Palpation: no palpable S3 and no palpable S4 Heart sounds: no rubs GI Palpation (GI): Soft to palpation and nontender Percussion: No Fluid wave present General: Yes no CVA tenderness Back/Spine/Pelvis Back: no CVA tenderness Skin General skin exam: no rashes or lesions noted Neuro General: patient oriented x3 Extrem General: Yes no pedal edema and No clubbing Assessment & Plan Assessment & Plan (1) CKD (chronic kidney disease): Comment: CKD in a setting of longstanding diabetes mellitus and nephrolithiasis. Renal function stable Code(s): N18.9 - Chronic kidney disease, unspecified Plan: Goal is to slow the progression of renal disease Continue to avoid nephrotoxic agents. Continue with the SGLT2 inhibitors (2) Nephrolithiasis: Comment: Still has renal stones but asymptomatic Code(s): N20.0 - Calculus of kidney Plan: Needs to stay on low-sodium diet Increase fluid intake to maintain a urine output of 2 L per 24 hours. (3) Hypercalcemia: Comment: Intact PTH is 45. He has been consuming excessive amount of Tums. Code(s): E83.52 - Hypercalcemia Plan: Discontinue Tums. Recheck calcium and PTH prior to next visit. (4) Diabetes mellitus: Code(s): E11.9 - Type 2 diabetes mellitus without complications Plan: Goal A1c less than 7% (5) Low systolic blood pressure: Code(s): I95.9 - Hypotension, unspecified Plan: Given the history of unsteady gait and low blood pressure I will discontinue losartan. Encouraged him to increase fluid intake Orders: Orders Comprehensive Met. Panel 3 Months E83.52 - Hypercalcemia, N18.9 - Chronic kidney disease, unspecified Parathyroid Hormone Intact 3 Months E83.52 - Hypercalcemia, N18.9 - Chronic kidney disease, unspecified Vitamin D 25-OH (D2 and D3) 3 Months E83.52 - Hypercalcemia, N18.9 - Chronic kidney disease, unspecified Complete Blood Count Auto Diff 3 Months E83.52 - Hypercalcemia, N18.30 - Chronic kidney disease, stage 3 unspecified, N18.9 - Chronic kidney disease, unspecified Phosphorus 3 Months E83.52 - Hypercalcemia, N18.9 - Chronic kidney disease, unspecified Total Protein Urine Random 3 Months E83.52 - Hypercalcemia, N18.9 - Chronic kidney disease, unspecified Medications: Discontinued losartan Discontinued Reason: Doctor's Order 50 mg PO DAILY 30 tabs 6RF Coding Level of Care Code Est Pt Level 4 (30858) Diagnoses CKD (chronic kidney disease) N18.9 Nephrolithiasis N20.0 Hypercalcemia E83.52 Diabetes mellitus E11.9 Low systolic blood pressure I95.9 Results Reviewed Nephrology Results: Hgb 13.5 g/dl (14.0-18.0) L 06/29/23 WBC 6.2 X10*3/uL (4.8-10.8) 06/29/23 Plt Count 98 X10*3/uL (160-400) L 06/29/23 Sodium 141 mmol/L (135-145) 06/29/23 Potassium 4.5 mmol/L (3.3-5.1) 06/29/23 Chloride 108 mmol/L (96-108) 06/29/23 Carbon Dioxide 28 mmol/L (22-29) 06/29/23 BUN 30 mg/dL (9-16) H 06/29/23 Creatinine 1.95 mg/dL (0.5-1.4) H 06/29/23 Calcium 10.3 mg/dL (8.4-10.2) H 06/29/23 PTH Intact 45.5 pg/mL (8.7-77.1) 06/29/23 Urine Protein 30 (1+) mg/dL (Neg-Trace) H 06/12/23 Urine Creatinine 86.88 mg/dL 06/12/23
== END 2023-07-03 14:08 | disposition home or self-care (01) ==
PROVIDERS: PCP Internal Medicine; Visit Provider Internal Medicine Hypertension Specialist
DX: N18.9 Chronic kidney disease, unspecified (principal); N20.0 Calculus of kidney; E83.52 Hypercalcemia; E11.9 Type 2 diabetes mellitus without complications; I95.9 Hypotension, unspecified
CPT/HCPCS: 99214

== ENCOUNTER → 2023-07-03 13:35 | Outpatient (BNVA) | payer MEDICARE, SELFPAY | PROVIDERS: PCP Internal Medicine; Visit Provider Internal Medicine Hypertension Specialist | DX: N18.9 Chronic kidney disease, unspecified (principal); N20.0 Calculus of kidney; E83.52 Hypercalcemia; E11.9 Type 2 diabetes mellitus without complications; I95.9 Hypotension, unspecified | CPT/HCPCS: 99212 ==

== ENCOUNTER 2023-09-28 08:25 | Outpatient (REF) | payer MEDICARE, SELFPAY ==
--- NOTE | 2023-09-28 08:30 | EMG_ITS ---
Chief complaint: Unsteady gait, leg pain, numbness. History of CKD and diabetes. Reason for referral: Evaluate for neuropathy Referred by: Dr. Pato Rosario Procedure done: Bilateral lower extremity NCS/EMG Precautions and/or limitations: None The limb temperature was monitored continuously and remained between 32-36 degrees C during the performance of the NCS. Nerve Conduction Studies Anti Sensory Summary Table ?Stim Site NR Onset (ms) Norm Onset (ms) Peak (ms) Norm Peak (ms) O-P Amp (?V) Norm O-P Amp Site1 Site2 Delta-0 (ms) Dist (cm) Charly (m/s) Norm Charly (m/s) Left Sural Anti Sensory (Lat Mall) Calf NR <4.0 >5.0 Calf Lat Mall 14.0 Right Sural Anti Sensory (Lat Mall) Calf NR <4.0 >5.0 Calf Lat Mall 14.0 Motor Summary Table ?Stim Site NR Onset (ms) Norm Onset (ms) O-P Amp (mV) Norm O-P Amp iAmp (mV) Amp (1st) (%) Site1 Site2 Delta-0 (ms) Dist (cm) Hcarly (m/s) Norm Charly (m/s) Right Peroneal Motor (Ext Dig Brev) Ankle NR <4.0 >2.5 Ankle Ext Dig Brev 0.0 B Fib NR B Fib Ankle 0.0 >40 Poplt NR Poplt B Fib 0.0 >40 Left Tibial Motor (Abd Rutherford Brev) Ankle ? 6.2 <5 0.3 >2.5 0.4 100.0 Ankle Abd Rutherford Brev 6.2 0.0 Knee ? 18.4 0.2 0.3 66.7 Knee Ankle 12.2 41.0 34 >40 Right Tibial Motor (Abd Rutherford Brev) Ankle ? 7.2 <5 0.2 >2.5 0.3 100.0 Ankle Abd Rutherford Brev 7.2 0.0 Knee ? 18.3 0.2 0.4 100.0 EMG ?Side Muscle Nerve Root Ins Act Fibs Psw Amp Dur Poly Recrt Int Pat Comment Right AbdHallucis MedPlantar S1-2 Nml Nml Nml Nml Nml 0 Nml Complete Right AntTibialis Dp Br Peron L4-5 Nml Nml Nml Nml Nml 0 Nml Complete Right PostTibialis Tibial L5, S1 Nml Nml Nml Nml Nml 0 Nml Complete Right MedGastroc Tibial S1-2 Incr 1+ 1+ Nml Nml 0 Nml Complete Right VastusMed Femoral L2-4 Nml Nml Nml Nml Nml 0 Nml Complete Left AbdHallucis MedPlantar S1-2 Incr 1+ 1+ Nml Nml 0 Nml Complete Left AntTibialis Dp Br Peron L4-5 Incr 1+ 1+ Nml Nml 0 Nml Complete Left PostTibialis Tibial L5, S1 Nml Nml Nml Nml Nml 0 Nml Complete Left MedGastroc Tibial S1-2 Incr 1+ 1+ Nml Nml 0 Nml Complete Left VastusMed Femoral L2-4 Nml Nml Nml Nml Nml 0 Nml Complete Paraspinal EMG ?Side Muscle Nerve Root Ins Act Fibs Psw Comment Right Lumbar Upper Rami Nml Nml Nml Right Lumbar Mid Rami Nml Nml Nml Right Lumbar Lower Rami Nml Nml Nml Left Lumbar Upper Rami Nml Nml Nml Left Lumbar Mid Rami Nml Nml Nml Left Lumbar Lower Rami Nml Nml Nml FINDINGS: All motor and sensory nerves tested in lower extremities showed either absent response or very small amplitude if any. Concentric needle EMG was performed in selected muscles of the bilateral lower extremity lumbar paraspinals. Study revealed signs of electric abnormalities as shown in the table below. IMPRESSION: 1. This is an abnormal study. 2. 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 Thank you for your kind referral. Shadia Collins MD, MARY Board Certified, [place] [employer] and [employer] (ABPMR) Board Certified, [place] Board [employer] Electrodiagnostic Medicine (ABEM) CODIN [id number] x 2 MTDD
== END 2023-09-28 08:26 | disposition home or self-care (01) ==
LOC: HO.NEURO 08:25
PROVIDERS: PCP Internal Medicine; Visit Provider Internal Medicine
DX: R26.89 Other abnormalities of gait and mobility (principal)
CPT/HCPCS: 95886; 95909

== ENCOUNTER → 2023-09-28 08:30 | Outpatient (BNV) | payer MEDICARE, SELFPAY | PROVIDERS: PCP Internal Medicine; Visit Provider Physical Medicine & Rehabilitation | DX: G62.89 Other specified polyneuropathies (principal) | CPT/HCPCS: 95886; 95909 ==

== ENCOUNTER 2023-10-03 11:39 | Outpatient (REF) | payer MEDICARE, SELFPAY ==
[2023-10-03 13:10] LABS: MANUAL DIFF FLAG NO
[2023-10-03 13:40] LABS: Basophils Absolute Auto 0.1 X10*3/uL (0.0-0.2); Basophils Percent Auto 0.8 % (0-2); Eosinophils Absolute Auto 0.4 X10*3/uL (0.0-0.4); Eosinophils Percent Auto 4.8 % (0-4); Hematocrit 42.1 % (42.0-52.0); Hemoglobin 14.2 g/dl (14.0-18.0); Imm Gran Abs Auto 0.05 X10*3/uL (0.00-0.03); Imm Gran Pct Auto 0.6 % (0.0-0.4); Lymphocytes Absolute Auto 1.4 X10*3/uL (1.2-4.9); Lymphocytes Percent Auto 17.2 % (20-40); Mean Corpuscular HGB Conc 33.7 g/dl (31.0-36.0); Mean Corpuscular Hemoglobin 29.2 pg (27.0-33.0); Mean Corpuscular Volume 86.6 fL (80.0-98.0); Mean Platelet Volume 10.9 fL (9.4-12.4); Monocytes Absolute Auto 0.4 X10*3/uL (0.1-1.2); Monocytes Percent Auto 5.5 % (2-11); Neutrophils Absolute Auto 5.6 x10*3/uL (2.0-8.3); Neutrophils Percent Auto 71.1 % (45-73); Platelet Count 137 X10*3/uL (160-400); Red Blood Count 4.86 X10*6/uL (4.60-5.80); Red Cell Distribution Width 13.2 % (11.0-16.0); White Blood Count 7.9 X10*3/uL (4.8-10.8)
[2023-10-03 14:02] LABS: Alanine Aminotransferase 32 U/L (0-40); Albumin Level 4.2 g/dL (3.5-5.0); Alkaline Phosphatase 93 U/L (39-117); Anion Gap 9 (12-20); Aspartate Amino Transferase 22 U/L (5-37); Bilirubin Total 0.5 mg/dL (0.0-1.0); Blood Urea Nitrogen 31 mg/dL (9-16); Calcium 10.2 mg/dL (8.4-10.2); Carbon Dioxide 29 mmol/L (22-29); Chloride 102 mmol/L (96-108); Estimated Glomerular Filt Rate 35; Glucose Random 270 mg/dL (60-115); Phosphorus 2.4 mg/dL (2.7-4.5); Potassium 4.2 mmol/L (3.3-5.1); Sodium 136 mmol/L (135-145); Total Protein 7.1 g/dL (6.5-8.0)
[2023-10-03 14:45] LABS: Parathyroid Hormone Intact 58.7 pg/mL (8.7-77.1)
[2023-10-03 14:48] LABS: Total Protein Urine Random 34 mg/dL (<12)
[2023-10-07 16:19] LABS: Vitamin D 25-OH, D2 <4 ng/mL; Vitamin D 25-OH, D3 57 ng/mL; Vitamin D 25-OH, Total 57 ng/mL (30-100)
== END 2023-10-03 11:40 | disposition home or self-care (01) ==
LOC: HO.10HDL 11:39
PROVIDERS: Visit Provider Internal Medicine Hypertension Specialist
DX: N18.30 Chronic kidney disease, stage 3 unspecified (principal); E83.52 Hypercalcemia
CPT/HCPCS: 36415; 80053; 82306; 83970; 84100; 84156; 85025

== ENCOUNTER 2023-11-12 14:41 | Outpatient (AMB) | payer MEDICARE, SELFPAY ==
--- NOTE | 2023-11-12 14:43 | HO.NEPHOV ---
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 Accompanied by: Self / Same As Patient Allergies No Known Allergies Allergy (Unknown, Verified 11/12/23 14:45) Medication List - Last Reconciled 11/12/23 by Donald Joy MD allopurinol 300 mg PO DAILY aspirin 81 mg PO DAILY citalopram 20 mg PO DAILY dapagliflozin propanediol 10 mg PO DAILY metformin 500 mg PO TID metoprolol succinate ER 25 mg PO DAILY omega [id number] oil 100-160-1,000 mg (Fish Oil) 3000 mg daily simvastatin 20 mg PO BEDTIME sitagliptin phosphate (Januvia) 100 mg PO DAILY zolpidem 5 mg PO BEDTIME PRN HPI Comments Details: 78-year-old man with a showed nephrolithiasis and chronic kidney disease. He is here for semiannual follow-up. He has been having unsteady gait. Seen by Neurology underwent EMG and nerve conduction study He continues to take Tums. [facility] Social History Alcohol intake: current Patient Tobacco Use Status: Former Tobacco user Physical Exam Vital Signs: Last Vital Signs Pulse 51 11/12/23 14:44 BP 100/50 L 11/12/23 14:44 Pulse Ox 98 11/12/23 14:44 Oxygen Delivery Method Room Air 11/12/23 14:44 BMI result Body Mass Index 27.9 Const General: comfortable; No acute distress Orientation/consciousness: patient oriented x3 Eyes General: appearance normal, both eyes and all related structures Visual Sloan: normal visual sloan by confrontation Neck Neck: Yes supple Resp Effort & Inspection: normal respiratory effort and respiratory effort not decreased Auscultation: clear to auscultation bilaterally Cardio Palpation: no palpable S3 Heart sounds: no rubs GI Inspection: Yes normal to inspection Palpation (GI): Soft to palpation Percussion: Yes normal to percussion Auscultation: normal bowel sounds General: Yes no CVA tenderness Back/Spine/Pelvis Back: no CVA tenderness Skin General skin exam: no petechiae and no purpura Neuro General: patient oriented x3 and no focal motor deficits Motor exam (neuro): no asterixis Extrem General: No clubbing and No edema Results Reviewed Nephrology Results: Hgb 14.2 g/dl (14.0-18.0) 10/03/23 WBC 7.9 X10*3/uL (4.8-10.8) 10/03/23 Plt Count 137 X10*3/uL (160-400) L 10/03/23 Sodium 136 mmol/L (135-145) 10/03/23 Potassium 4.2 mmol/L (3.3-5.1) 10/03/23 Chloride 102 mmol/L (96-108) 10/03/23 Carbon Dioxide 29 mmol/L (22-29) 10/03/23 BUN 31 mg/dL (9-16) H 10/03/23 Creatinine 1.88 mg/dL (0.5-1.4) H 10/03/23 Calcium 10.2 mg/dL (8.4-10.2) 10/03/23 Phosphorus 2.4 mg/dL (2.7-4.5) L 10/03/23 PTH Intact 58.7 pg/mL (8.7-77.1) 10/03/23 Urine Protein 30 (1+) mg/dL (Neg-Trace) H 06/12/23 Urine Creatinine 86.88 mg/dL 06/12/23 Assessment & Plan Assessment & Plan (1) Nephrolithiasis: Comment: Still has renal stones but asymptomatic Code(s): N20.0 - Calculus of kidney Category: Medical Plan: Needs to stay on low-sodium diet Increase fluid intake to maintain a urine output of 2 L per 24 hours. (2) CKD (chronic kidney disease): Comment: CKD in a setting of longstanding diabetes mellitus and nephrolithiasis. Renal function stable Code(s): N18.9 - Chronic kidney disease, unspecified Category: Medical Plan: Goal is to slow the progression of renal disease Continue to avoid nephrotoxic agents. Continue with the SGLT2 inhibitors (3) Hypercalcemia: Comment: Intact PTH is 45. He was consuming excessive amount of Tums. Code(s): E83.52 - Hypercalcemia Category: Medical Plan: Discontinue Tums. Recheck calcium and PTH prior to next visit. (4) Diabetes mellitus: Code(s): E11.9 - Type 2 diabetes mellitus without complications Category: Medical Plan: Goal A1c less than 7% (5) Low systolic blood pressure: Code(s): I95.9 - Hypotension, unspecified Category: Medical Plan: BP remains low therefore I will increase metoprolol ER down to 25 mg a day Orders: Orders Basic Metabolic Panel 6 Months N20.0 - Calculus of kidney Medications: New metoprolol succinate ER 25 mg PO DAILY 90 tabs 1RF Coding Level of Care Code Est Pt Level 3 (55698) Diagnoses Nephrolithiasis N20.0 CKD (chronic kidney disease) N18.9 Hypercalcemia E83.52 Diabetes mellitus E11.9 Low systolic blood pressure I95.9
[2023-11-12 14:44] VITALS: BP 100/50; PULSE 51; O2SAT 98; BMI 27.9
== END 2023-11-12 15:06 | disposition home or self-care (01) ==
PROVIDERS: PCP Internal Medicine; Visit Provider Internal Medicine Hypertension Specialist
DX: N20.0 Calculus of kidney (principal); N18.9 Chronic kidney disease, unspecified; E83.52 Hypercalcemia; E11.9 Type 2 diabetes mellitus without complications; I95.9 Hypotension, unspecified
CPT/HCPCS: 99213

== ENCOUNTER → 2023-11-12 14:41 | Outpatient (BNVA) | payer MEDICARE, SELFPAY | PROVIDERS: PCP Internal Medicine; Visit Provider Internal Medicine Hypertension Specialist | DX: E11.22 Type 2 diabetes mellitus with diabetic chronic kidney disease (principal); N18.9 Chronic kidney disease, unspecified; N20.0 Calculus of kidney; E83.52 Hypercalcemia; I95.9 Hypotension, unspecified | CPT/HCPCS: 99212 ==

== ENCOUNTER 2023-12-10 10:38 | Outpatient (REF) | payer MEDICARE, SELFPAY ==
[2023-12-10 11:23] LABS: Estimated Average Glucose 174 mg/dL; Hemoglobin A1c % 7.7 % (<6.0)
[2023-12-10 11:32] LABS: Alanine Aminotransferase 31 U/L (0-40); Alkaline Phosphatase 86 U/L (39-117); Aspartate Amino Transferase 25 U/L (5-37); Bilirubin Direct 0.2 mg/dL (0.0-0.5); Bilirubin Total 0.7 mg/dL (0.0-1.0); Cholesterol 123 mg/dL (<200); Glucose Fasting 183 mg/dL (60-99); HDL Cholesterol 26 mg/dL (>40); Total Protein 6.8 g/dL (6.5-8.0); Triglycerides 406 mg/dL (<150)
[2023-12-10 13:11] LABS: Reflex LDLD? No
== END 2023-12-10 10:39 | disposition home or self-care (01) ==
LOC: HO.LNP 10:38
PROVIDERS: Visit Provider Internal Medicine
DX: E11.40 Type 2 diabetes mellitus with diabetic neuropathy, unspecified (principal); E78.00 Pure hypercholesterolemia, unspecified
CPT/HCPCS: 80061; 80076; 82947; 83036

== ENCOUNTER 2024-04-17 13:40 | Outpatient (REF) | payer MEDICARE, SELFPAY ==
--- OUTSIDE RECORDS SUMMARY | 2024-04-17 13:42 | XMS_ITS ---
Author Organization Pato Rosario MD Address [address] [place] [phone] Care Team Providers Care Brand Development Manager Name Role Phone Pato Rosario Primary Care Provider RESULTS Component Value Reference Range Notes Liver Panel Reviewed date:12/10/2023 01:32:27 PM Interpretation: Performing Lab:[facility], [address] [place] [phone] Notes/Report: Bilirubin Total 0.7 0.0-1.0 mg/dL Bilirubin Direct 0.2 0.0-0.5 mg/dL Aspartate Amino Transferase 25 5-37 U/L Alanine Aminotransferase 31 0-40 U/L Total Protein 6.8 6.5-8.0 g/dL Albumin Level 4.0 3.5-5.0 g/dL Alkaline Phosphatase 86 39-117 U/L Glucose Fasting Reviewed date:12/10/2023 01:32:19 PM Interpretation: Performing Lab:[facility], [address] [place] [phone] Notes/Report: Glucose Fasting 183 60-99 mg/dL A fasting glucose of 126 mg/dl or greater on more than one occasion is considered diagnostic of diabetes. Lipid Panel with Reflex Reviewed date:12/10/2023 01:32:10 PM Interpretation: Performing Lab:[facility], [address] [place] [phone] Notes/Report: Triglycerides 406 <150 mg/dL Desirable Triglyceride: less than 150 mg/dL Borderline High Triglyceride 150-199 mg/dL High Triglyceride: 200-499 mg/dL Very High Triglyceride: greater than or equal to 5OO mg/dL Cholesterol 123 <200 mg/dL Desirable Cholesterol: less than 200 mg/dL Borderline High Cholesterol: 200-239 mg/dL High Cholesterol: greater than 239 mg/dL LDL Cholesterol Calculated TNP <100 mg/dL Unable to calculate the LDL. The formula of Friedwald, Luevano, and Julia is only valid if the triglycerides are less than 400 mg/dl. HDL Cholesterol 26 >40 mg/dL Desirable HDL: greater than 40 mg/dL Note: This HDL assay may give artificially low results in patients with liver disease. Hemoglobin A1c Reviewed date:12/10/2023 12:33:41 PM Interpretation: Performing Lab:[facility], [address] [place] [phone] Notes/Report: Hemoglobin A1c % 7.7 <6.0 % Hemoglobin A1C Reference Range Adults: 4.8 - 6.0 % Non diabetic: < 6.0 % Goal: < 7.0 % Additional Action Suggested: > 8.0 % Note: Hemoglobin A1c results are invalid for patients with abnormal amounts of HbF. Blood transfusions may impact the HbA1c concentration in the patient sample. Estimated Average Glucose 174 eAG = Estimated average glucose which is %A1C expressed as average glucose, using the formula of the [id number]-Lszozfe Average Glucose study (ADAG), Diabetes Care, Vol.31,#8, Nov. 2007 REASON FOR VISIT fasting lipids Encounters Encounter Location Date Provider Diagnosis Pato Rosario MD [address] [place] [address] Drive [address] [place], [place] [phone] 12/10/2023 Pato Rosario Type 2 diabetes shyann itus with diabetic neuropathy E11.40 and Pure hypercholesterolemia E78.00 ASSESSMENTS Encounter Date Diagnosis Assessment Notes Treatment Notes Treatment Clinical Notes 12/10/2023 Type 2 diabetes shyann itus with diabetic neuropathy (ICD-10 - E11.40) 12/10/2023 Pure hypercholestero lemia (ICD-10 - E78.00) PLAN OF TREATMENT Next Appt Details Provider Name:Pato briones, 06/12/2024 07:30:00 AM, [address] [place] [address], [address], [place], [place], [phone], Provider Name:Pato briones, 06/19/2024 01:00:00 PM, [address] [place] [address], [address], [place], [phone],
--- OUTSIDE RECORDS SUMMARY | 2024-04-17 13:42 | XMS_ITS ---
Author Organization Pato Rosario MD Address [address] [place] [phone] Care Team Providers Care Business Division Chair Name Role Phone Pato Rosario Primary Care Provider ALLERGIES No Known Allergies REASON FOR VISIT tests before DR. Brasher daughter wants testing before he sees Dr Brasher, No Covid symptoms MEDICATIONS Medication SIG (Take, Route, Frequency, Duration) Notes Start Date End Date Status metFORMIN HCl 500 MG TAKE TWO TABLETS BY MOUTH EVERY DAY IN THE MORNING TAKE ONE TABLET BY MOUTH EVERY DAY IN THE EVENING Active Citalopram Hydrobromide 20 MG TAKE ONE TABLET BY MOUTH EVERY DAY for 30 Active Metoprolol Succinate 50 MG 1 capsule Orally Once a day Active Simvastatin 40 MG 1/2 tablet in the evening Orally Once a day Active Nystatin 745942 UNIT/GM 1 application Externally Twice a day for 7 days 06/18/2023 Active OneTouch Ultra Test - TEST 4XA DAY DIRECTED for 25 Active OneTouch Ultra - TEST FOUR TIMES SYL Y DIRECTED for 25 Active Tadalafil 20 MG 1 tablet Orally Once a day as needed for 30 day(s) 03/24/2021 Active Allopurinol 300 MG TAKE ONE TABLET BY MOUTH EVERY DAY for 90 Active Aspirin 81 MG 1 tablet Orally Once a day for 30 day(s) Active Fluticasone Propionate 0.050 Milligram 2 PUFF EACH NOSTRIL DAILY Nasally Once a day for 30 Not-Taking Nitrostat 0.400 1 tablet under the tongue and allow to dissolve as needed Sublingual every 5 mins times 3 for chest pain for 5 Not-Taking Dapagliflozin Propanediol 10 MG TAKE 1 TABLET DAILY for 90 Active Zithromax Z-Deric 250 MG 2 tablet on the day, then 1 tablet daily for 4 days Orally Once a day for 5 day(s) 03/23/2023 Not-Taki ng Ipratropium [place] 0.06 % USE 2 SPRAYS IN EACH NOSTRIL TWO TIMES A DAY for 11 Active LORazepam 0.5 MG TAKE ONE TABLET BY MOUTH EVERY DAY NEEDED for 30 08/05/2023 Not-Taking Tamsulosin HCl 0.4 MG TAKE 2 CAPSULES ON CE DAILY for 90 Active Januvia 100 MG TAKE 1 TABLET DAILY for 90 Active Zolpidem Tartrate 5 MG TAKE ONE TABLET B Y MOUTH AT BEDTIME for 30 08/05/2023 Active PROBLEMS Problem Type ICD Code Onset Dates Problem Status W/U Status Risk SNOMED Code Notes Problem Movement disorder (G25.9) Active confirmed [id number] VITAL SIGNS BMI 28.45 kg/m2 09/10/2023 Blood pressure systolic 122 mm Hg 09/10/19 24 Blood pressure diastolic 60 mm Hg 024 Height 71 in 09/10/2023 Weight 204 lbs 09/10/2023 weight is up 5 pounds since 06-18-23 Encounters Encounter Location Date Provider Diagnosis Pato Rosario MD [address] [place] [address] [place] [phone] 09/10/2023 Pato Rosario Neuropathy G62.9 ; Movement disorder G25.9 ; Type 2 diabetes mellitus with diabetic neuropathy E11.40 and Balance disorder R26.89 ASSESSMENTS Encounter Date Diagnosis Assessment Notes Treatment Notes Treatment Clinical Notes 09/10/2023 Neuropathy (ICD-10 - G62.9) order faxed to [facility] dept, pending diagnostic testing 09/10/2023 Movement disorder (ICD-10 - G25.9) is going to see neurologist 09/10/2023 Type 2 diabetes mellitus with diabetic neuropathy (ICD-10 - E11.40) 09/10/2023 Balance disorder (ICD-10 - R26.89) PLAN OF TREATMENT Treatment Notes Assessment Notes Neuropathy order faxed to [facility] dept, pending diagnostic testing Movement disorder is going to see neur ologist Pending Test Test Name Order Date EMG 09/10/2023 Next Appt Details Follow Up: 2 Months, Reason: Provider Name:Pato briones, 06/12/2024 07:30:00 AM, [address] [place] [address], [address], [place], [place], [phone], Provider Name:Pato briones, 06/19/2024 01:00:00 PM, [address] [place] [address], [address], [place], [place], [phone], Progress Notes * Examination Category Sub-Category Detail Notes General Examination GENERAL APPEARANCE: alert, w ell hydrated, in no distress HEAD: normocephalic HEART: no murmurs, rubs, ga llops regular rate and rhythm LUNGS: no wheezes, rales, r honchi good air movement clear to auscultation bilaterally NEUROLOGIC: no tremor. has abili ty to get out of chair without difficulty. has some cogwheeling on rt. gait is abnormal but good steps but appears as though the neuropathy is the the cause SKIN: good turgor
--- OUTSIDE RECORDS SUMMARY | 2024-04-17 13:43 | XMS_ITS | Patient Health Record ---
Author Organization Pato Rosario MD Address [address] [place], [place] [id number] Care Team Providers Care Safety Engineer Name Role Phone Pato Rosario Primary Care Provider ALLERGIES No Known Allergies RESULTS Component Value Reference Range Notes MR head/brain wo con Reviewed date:05/16/2023 03:19:07 PM Interpretation: Performing Lab: Notes/Report: [address] [address] Magnetic Resonance Report Signed Patient: Tee Marte MR#: [id number] : 1945 Acct:[id number] Age/Sex: 77 / M ADM Date: 05/15/23 Loc: HO.MRI Attending Dr: Pato Rosario MD Ordering Physician: Pato Rosario MD Date of Service: 05/15/23 Procedure(s): MR head/brain wo con Accession Number(s): [id number] cc: Pato Rosario MD EXAMINATION: MR BRAIN WITHOUT CONTRAST CLINICAL INFORMATION: Balance disorder. COMPARISON: None available. TECHNIQUE: Multiplanar, multisequence imaging of the brain was performed without contrast. Limited study with motion artifacts. FINDINGS: No diffusion abnormalities are identified to suggest an acute infarct. No mass effect or midline shift is seen. Nonspecific mild white matter signal changes may be due to chronic microangiopathy. There is [id number]-szcytsjr generalized brain parenchymal volume loss with concordant mild ex vacuo dilatation of the ventricles. No extra-axial fluid collections are seen. The brainstem and cerebellum are normal. The gradient refocused acquisition is normal. The craniovertebral junction, marrow signal, and midline structures are normal. The major intracranial flow voids at the level of the [place] of [place] are preserved. The dural venous sinus flow voids are maintained. The mastoid air cells are well aerated. There is mild mucosal thickening in the ethmoid and maxillary sinuses with small retention cysts in the dependent maxillary antrum. MR/MR head/brain wo con IMPRESSION: No acute intracranial process. Mild chronic white matter microangiopathy and generalized brain parenchymal volume loss. 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 Complete Blood Count Auto Di ff Reviewed date:06/12/2023 12:47:09 PM Interpretation: Performing Lab:[facility], [address] [place] [phone] Notes/Report: White Blood Count 8.2 4.8-10.8 X10*3/uL Red Blood Count 4.65 4.60-5.80 X10*6/uL Hemoglobin 13.9 14.0-18.0 g/dl Hematocrit 39.9 42.0-52.0 % Mean Corpuscular Volume 85.8 80.0-98.0 fL Mean Corpuscular Hemoglobin 29.9 27.0-33.0 pg Mean Corpuscular HGB Conc 34.8 31.0-36.0 g/dl Red Cell Distribution Width 13.2 11.0-16.0 % Mean Platelet Volume 11.5 9.4-12.4 fL Neutrophils Percent Auto 68.4 45-73 % Imm Gran Pct Auto 0.7 0.0-0.4 % Lymphocytes Percent Auto 17.9 20-40 % Monocytes Percent Auto 7.4 2-11 % Eosinophils Percent Auto 4.9 0-4 % Basophils Percent Auto 0.7 0-2 % NRBC Pct Auto 0.4 0.0-0.2 /100WBC Neutrophils Absolute Auto 5.6 2.0-8.3 x10*3/u L Imm Gran Abs Auto 0.06 0.00-0.03 X10*3/uL Lymphocytes Absolute Auto 1.5 1.2-4.9 X10*3/u L Monocytes Absolute Auto 0.6 0.1-1.2 X10*3/uL Eosinophils Absolute Auto 0.4 0.0-0.4 X10*3/u L Basophils Absolute Auto 0.1 0.0-0.2 X10*3/uL NRBC Abs Auto 0.030 0.0-0.012 X10*3/uL White Blood Count 8.2 4.8-10.8 X10*3/uL Red Blood Count 4.65 4.60-5.80 X10*6/uL Hemoglobin 13.9 14.0-18.0 g/dl Hematocrit 39.9 42.0-52.0 % Mean Corpuscular Volume 85.8 80.0-98.0 fL Mean Corpuscular Hemoglobin 29.9 27.0-33.0 pg Mean Corpuscular HGB Conc 34.8 31.0-36.0 g/dl Red Cell Distribution Width 13.2 11.0-16.0 % Platelet Count 113 160-400 X10*3/uL Mean Platelet Volume 11.5 9.4-12.4 fL Neutrophils Percent Auto 68.4 45-73 % Imm Gran Pct Auto 0.7 0.0-0.4 % Lymphocytes Percent Auto 17.9 20-40 % Monocytes Percent Auto 7.4 2-11 % Eosinophils Percent Auto 4.9 0-4 % Basophils Percent Auto 0.7 0-2 % NRBC Pct Auto 0.4 0.0-0.2 /100WBC Neutrophils Absolute Auto 5.6 2.0-8.3 x10*3/u L Imm Gran Abs Auto 0.06 0.00-0.03 X10*3/uL Lymphocytes Absolute Auto 1.5 1.2-4.9 X10*3/u L Monocytes Absolute Auto 0.6 0.1-1.2 X10*3/uL Eosinophils Absolute Auto 0.4 0.0-0.4 X10*3/u L Basophils Absolute Auto 0.1 0.0-0.2 X10*3/uL NRBC Abs Auto 0.030 0.0-0.012 X10*3/uL Comprehensive [place]. Panel Fa st Reviewed date:06/12/2023 12:37:16 PM Interpretation: Performing Lab:[facility], [address] [place] [phone] Notes/Report: Sodium 139 135-145 mmol/L Potassium 4.2 3.3-5.1 mmol/L Chloride 106 96-108 mmol/L Carbon Dioxide 25 22-29 mmol/L Anion Gap 12 12-20 Blood Urea Nitrogen 29 9-16 mg/dL Creatinine 1.83 0.5-1.4 mg/dL Estimated Glomerular Filt Rate 36 NOTE: For -[place] individuals, multiply the result by 1.210. Chronic Kidney Disease: Estimated GFR < 60 mL/min/1.73m2 Severe Kidney Disease: Estimated GFR < 15 mL/min/1.73m2 Glucose Fasting 189 60-99 mg/dL A fasting glucose of 126 mg/dl or greater on more than one occasion is considered diagnostic of diabetes. Calcium 9.7 8.4-10.2 mg/dL Bilirubin Total 0.7 0.0-1.0 mg/dL Aspartate Amino Transferase 27 5-37 U/L Alanine Aminotransferase 36 0-40 U/L Total Protein 6.8 6.5-8.0 g/dL Albumin Level 4.0 3.5-5.0 g/dL Alkaline Phosphatase 86 39-117 U/L Lipid Panel Reviewed date:06/12/2023 12:31:45 PM Interpretation: Performing Lab:[facility], [address] [place] [phone] Notes/Report: Triglycerides 432 <150 mg/dL Desirable Triglyceride: less than 150 mg/dL Borderline High Triglyceride 150-199 mg/dL High Triglyceride: 200-499 mg/dL Very High Triglyceride: greater than or equal to 5OO mg/dL Cholesterol 125 <200 mg/dL Desirable Cholesterol: less than 200 [...] low results in patients with liver disease. Microalbumin, Random Reviewed date:06/12/2023 12:32:39 PM Interpretation: Performing Lab:[facility], [address] [place] [phone] Notes/Report: Creatinine Urine 86.88 Microalbumin Urine 278.0 Microalbum/Creatinine Ratio Ur 319.9 <30 ug/mg cr Albumin/Creatinine Ratio Reference Ranges: Normal: < 30 ug/mg creatinine Microalbuminuria: 30 - 300 ug/mg creatinine Clinical Albuminuria: > 300 ug/mg creatinine Hemoglobin A1c Reviewed date:06/12/2023 12:31:59 PM Interpretation: Performing Lab:[facility], [address] [place] [phone] Notes/Report: Hemoglobin A1c % 7.7 <6.0 % [...] average glucose, using the formula of the R8F-Wnxuhta Average Glucose study (ADAG), Diabetes Care, Vol.31,#8, Nov. 2007 UA ClnCatch+Micro w/rflx Cul t Reviewed date:06/12/2023 04:17:54 PM Interpretation: Performing Lab:[facility], [address] [place] [phone] Notes/Report: [id number] Urine, Clean Catch Color Urine Yellow Appearance Urine Clear PH 5.0 5.0-9.0 Glucose Urine UA >=1000 Negative mg/dL Urine Blood Negative Negative Specific [place] - Urine 1.025 1.005-1.025 Urine Protein 30 (1+) Neg-Trace mg/dL Urine Ketones Negative Negative mg/dL Nitrite Urine Negative Negative Leukocyte Esterase Urine Negative Negative RBC Urine 0-2 0-2 /HPF WBC Urine 0-5 0-5 /HPF Squamous Epithelial Cell Urine 0-2 0-2 /HPF Bacteria Urine None Seen None Seen Hyaline Casts Urine 0-2 0-2 /LPF SLIDE REVIEW Reviewed date:06/12/2023 12:35:45 PM Interpretation: Performing Lab:[facility], [address] [place] [phone] Notes/Report: SLIDE REVIEW VERIFIED Occult Blood, Stool, Guaiac Reviewed date:06/18/2023 11:03:55 AM Interpretation:Negative Performing Lab: Notes/Report: Negative Occult Blood, Stool, Guaiac Neg Glucose, finger stick Reviewed date:06/18/2023 09:33:11 AM Interpretation: Performing Lab: Notes/Report: Value 173 Hold Gold Reviewed date:12/10/2023 10:59:55 AM Interpretation: Performing Lab:[address] [phone] Notes/Report: Hold Gold See Note Specimen held untested for 24 hours; Call to request Chemistry testing. Liver Panel Reviewed date:12/10/2023 01:32:27 PM Interpretation: Performing Lab:[facility], [address] [place] [phone] Notes/Report: Bilirubin Total 0.7 0.0-1.0 mg/dL Bilirubin Direct 0.2 0.0-0.5 mg/dL Aspartate Amino Transferase 25 5-37 U/L Alanine Aminotransferase 31 0-40 U/L Total Protein 6.8 6.5-8.0 g/dL Albumin Level 4.0 3.5-5.0 g/dL Alkaline Phosphatase 86 39-117 U/L Glucose Fasting Reviewed date:12/10/2023 01:32:19 PM Interpretation: Performing Lab:[address] [address] Notes/Report: Glucose Fasting 183 60-99 mg/dL A fasting glucose of 126 mg/dl or greater on more than one occasion is considered diagnostic of diabetes. Lipid Panel with Reflex Reviewed date:12/10/2023 01:32:10 PM Interpretation: Performing Lab:[facility], [address] [place] [phone] Notes/Report: Triglycerides 406 <150 mg/dL Desirable Triglyceride: [...] A1c Reviewed date:12/10/2023 12:33:41 PM Interpretation: Performing Lab:[facility], [address] [place] [phone] Notes/Report: Hemoglobin A1c % 7.7 <6.0 % [...] average glucose, using the formula of the W9J-Sejewcj Average Glucose study (ADAG), Diabetes Care, Vol.31,#8, Nov. 2007 Glucose, finger stick Reviewed date:12/17/2023 01:23:24 PM Interpretation: Performing Lab: Notes/Report: Value 217 REASON FOR REFERRAL Reason Balance disorder Diagnosis 1 Balance disorder (R2 6.89) Referral Organization Pato Rosario MD Referring Provider First Name Pato Referring Provider Last Name Marlene Referring Provider Speciality Internal M edicine Referred Provider [facility], [facility] Referred Provider Specialty Neurology General Notes Veronica [place] 10:47:45 AM EST > Wants Dr. Chapito Brasher brain MRI was ordered will be done at [facility], order faxed to [facility] [place] dept , Veronica Stratton 04/20/2023 02:23:17 PM EST > info faxed, Veronica Stratton 04/20/2023 03:05:25 PM EST > spoke with office Dr. Brasher needs to review referral p [phone], Veronica Stratton 04/27/2023 10:32:09 AM EST > being worked on MRI needs to be done first , Veronica Stratton 05/04/2023 11:13:50 AM EST > MRI booked for 05-15-23t [facility] , Veronica Stratton 05/21/2023 11:32:53 AM EST > info refaxed with MRI results, Veronica Stratton 05/24/2023 08:58:10 AM EST > patient is aware of appt Referral Priority Routine Referral Appointment Date 11/01/2023 MEDICATIONS Medication SIG (Take, Route, Frequency, Duration) Notes Start Date End Date Status Dapagliflozin Propanediol 10 MG TAKE 1 TABLET DAILY Active Citalopram Hydrobromide 20 MG TAKE ONE TABLET BY MOUTH EVERY DAY for 30 Active Nitrostat 0.400 1 tablet under the tongue and allow to dissolve as needed Sublingual every 5 mins times 3 for chest pain for 5 Not-Taking Januvia 100 MG TAKE 1 TABLET DAILY Active Metoprolol Succinate 25 MG 1 capsule Orally Once a day Active Fluticasone Propionate 0.050 Milligram 2 PUFF EACH NOSTRIL DAILY Nasally Once a day for 30 Not-Taking metFORMIN HCl 500 MG TAKE TWO TABLETS BY MOUTH EVERY MORNING AND TAKE ONE TABLET BY MOUTH AT BEDTIME Active Zithromax Z-Deric 250 MG 2 tablet on the irst day, then 1 tablet daily for 4 days Orally Once a day for 5 day(s) 03/23/2023 Not-Taki ng Simvastatin 40 MG 1/2 tablet in the evening Orally Once a day Active OneTouch Ultra - TEST FOUR TIMES SYL Y DIRECTED for 25 Active LORazepam 0.5 MG TAKE ONE TABLET BY MOUTH EVERY DAY NEEDED for 30 08/05/2023 Not-Taking Tamsulosin HCl 0.4 MG TAKE 2 CAPSULES ON CE DAILY for 90 Active Ipratropium [place] 0.06 % USE 2 SPRAYS IN EACH NOSTRIL TWO TIMES A DAY for 11 Active Zolpidem Tartrate 5 MG TAKE ONE TABLET B Y MOUTH EVERY EVENING AT BEDTIME for 30 11/12/2023 Active Allopurinol 300 MG TAKE ONE TABLET BY MOUTH EVERY DAY for 90 Active Nystatin 713846 UNIT/GM 1 application Externally Twice a day 06/18/2023 Active Tadalafil 20 MG 1 tablet Orally Once a day as needed for 30 day(s) 03/24/2021 Active OneTouch Ultra Test - TEST 4XA DAY DIRECTED for 25 Active Aspirin 81 MG 1 tablet Orally Once a day for 30 day(s) Active IMMUNIZATIONS Vaccine Route Administration Date Status Comme nts Shingles Unknown 08/04/2011 Administered Flu Vaccine IM Intramuscular 01/01/2012 Administered PPSV23 (Pnemovax) Unknown 01/16/2000 Administered Here in the office. Prevnar 13 IM Intramuscular 06/17/2012 Administered Flu Vaccine IM Intramuscular 01/21/2013 Administered Flu Vaccine Unknown 02/04/2014 Administered [facility] [place] Flu Vaccine Unknown 02/10/2015 Administered pt recieved the vaccine at [facility] in [facility]. PPSV23 (Pnemovax) IM Intramuscular 04/05/2015 Administered Fluarix Quadrivalent IM Intramuscular 01/17/2016 Administe red Fluarix Quadrivalent IM Intramuscular 02/02/2017 Administe red TDaP IM Intramuscular 10/31/2017 Administered pt was given the vaccine at [facility] in [place]. Shingrix Unknown 10/04/2017 Administered [facility] Shingrix IM Intramuscular 12/19/2017 Administered pt had the vaccine at [facility] in [place]. Influenza High Dose IM Intramuscular 02/19/2018 Administer ed Influenza High Dose IM Intramuscular 01/28/2019 Administer ed Influenza High Dose IM Intramuscular 12/25/2019 Administer ed Covid Vaccine Unknown 05/26/2020 Administered Covid Vaccine Unknown 06/23/2020 Administered Moderna PPSV23 (Pnemovax) IM Intramuscular 08/27/2020 Administered Influenza High Dose IM Intramuscular 01/21/2021 Administer ed SARS-COV-2 Moderna Unknown 02/14/2021 Administered SARS-COV-2 Moderna Unknown 09/02/2021 Administered Influenza High Dose IM Intramuscular 01/19/2022 Administer ed RSV Unknown 04/02/[address] [facility] SOCIAL HISTORY Tobacco Use: Social History Observation Description Date Details (start date - stop date) Former Smoker NA - NA Sex Assigned At : Social History Observation Description Sex Assigned At Unknown Tobacco Use/Smoking Question Answer Notes Patient is a former smoker How long has it been since y ou last smoked? > 10 years Additional Findings: Tobacco Non-User Fo rmer smoker, currently using no form of tobacco Alcohol Screen Question Answer Notes Did you have a drink containing alcohol in the p ast year? No Points 0 Interpretation Negative PROBLEMS Problem Type ICD Code Onset Dates Problem Status W/U Status Risk SNOMED Code Notes Problem Thrombocytopenia (D69.6) Active confirmed 379031443 Problem Balanitis (N48.1) Active confirmed 4488 2003 Problem Neuropathy (G62.9) Active confirmed 386 124686 Problem Prostatism (N40.0) Active confirmed 114 20485 Problem Tubular adenoma (D36.9) Active confirmed 876336961 Problem Anxiety (F41.9) Active confirmed 541364 02 Problem Coronary atherosclerosis due to lipid rich plaque (I25.83) Active confirmed 80469580 Problem Hypercalcemia (E83.52) Active confirmed Hypercalcemia (70614214) Problem Primary insomnia (F51.01) Active confirmed 1722540 Problem Vasomotor rhinitis (J30.0) Active confirmed 9168854 Problem Sciatica, right side (M54.31) Active confirmed 93964018398307078 Problem 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) Active confirmed 40096680 Problem History of kidney stones (Z87.442) Active confirmed 498145802 Problem Obstructive sleep apnea (G47.33) Active confirmed 89595556 Problem Vasculogenic erectil e dysfunction, unspecified vasculogenic erectile dysfunction type (N52.9) Active confirmed 267854206 Problem Dysthymia (F34.1) Active confirmed 7866 7006 Problem Claudication (I73.9) Active confirmed 6 3636096 Problem Pure hypercholesterolemia (E78.00) Active confirmed 996826744 Problem Hypoglycemia associated with diabetes (E11.649) Active confirmed 37078244 Problem Movement disorder (G25.9) Active confirmed 05294035 Problem Acute idiopathic gou t involving toe, 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) Active confirmed 76775267 Problem Hypertension, unspecified type (I10) Active confirmed 80297514 Problem Balance disorder (R26.89) Active confirmed 695748122 VITAL SIGNS Blood pressure diastolic 60 mm Hg 12/17/2023 Height 71 in 12/17/2023 Blood pressure systolic 122 mm Hg 12/17/2023 Weight 203 lbs 12/17/2023 BMI 28.31 kg/m2 12/17/2023 Encounters Encounter Location Date Provider Diagnosis Pato Rosario MD [address] [place] [id number] 06/18/2023 Pato Rosario Type 2 diabetes shyann itus with diabetic neuropathy E11.40 ; Candidal balanitis B37.42 ; Generalized weakness R53.1 ; Coronary atherosclerosis due to lipid rich plaque I25.83 ; Pure hypercholesterolemia E78.00 ; Prostatism N40.0 ; Hypertension, unspecified type I10 ; Dysthymia F34.1 ; Anxiety F41.9 ; Colon cancer screening Z12.11 and Depression screening Z13.31 Pato Rosario MD [address] [place] [id number] 06/12/2023 Pato Rosario Type 2 diabetes shyann itus with diabetic neuropathy E11.40 ; Pure hypercholesterolemia E78.00 ; Prostatism N40.0 ; Hypercalcemia E83.52 and Hypertension, unspecified type I10 Pato Rosario MD [address] [place] [address] [id number] 12/10/2023 Pato Rosario Type 2 diabetes shyann itus with diabetic neuropathy E11.40 and Pure hypercholesterolemia E78.00 Pato Rosario MD [address] [place] [address] [id number] 04/20/2023 Pato Rosario Neuropathy G62.9 and Balance disorder R26.89 Pato Rosario MD [address] [place] [address] [id number] 12/17/2023 Pato Rosario Type 2 diabetes shyann itus with diabetic neuropathy E11.40 ; Yeast infection B37.9 ; Neuropathy G62.9 and Coronary atherosclerosis due to lipid rich plaque I25.83 Pato Rosario MD [address] [place] [id number] 09/10/2023 Pato Rosario Neuropathy G62.9 ; Movement disorder G25.9 ; Type 2 diabetes mellitus with diabetic neuropathy E11.40 and Balance disorder R26.89 Pato Rosario MD [address] [place] [address] [id number] 04/24/2023 Pato Rosario Hypertension, unspec ified type I10 Pato Rosario MD [address] [place] [address] [address] [place] [address] [id number] 05/21/2023 Pato Rosario Type 2 diabetes shyann itus with diabetic neuropathy E11.40 Pato Rosario MD [address] [place] [address] [id number] 05/24/2023 Pato Rosario ASSESSMENTS Encounter Date Diagnosis Assessment Notes Treatment Notes Treatment Clinical Notes 06/18/2023 Candidal balanitis (ICD-10 - B37.42) is going to get cream 06/18/2023 Type 2 diabetes shyann itus with diabetic neuropathy (ICD-10 - E11.40) stable, will continue current regiment 06/12/2023 Type 2 diabetes shyann itus with diabetic neuropathy (ICD-10 - E11.40) 12/10/2023 Type 2 diabetes shyann itus with diabetic neuropathy (ICD-10 - E11.40) 12/10/2023 Pure hypercholestero lemia (ICD-10 - E78.00) 04/20/2023 Neuropathy (ICD-10 - G62.9) pending referral and diagnotic testing 04/20/2023 Balance disorder (IC D-10 - R26.89) needs referral to dr brasher at [facility], pending referral and diagnostic testing 12/17/2023 Yeast infection (ICD -10 - B37.9) going to try going to every other day on the [facility], will continue to monitor 12/17/2023 Type 2 diabetes shyann itus with diabetic neuropathy (ICD-10 - E11.40) stable, will cntinue current regiment 09/10/2023 Neuropathy (ICD-10 - G62.9) order faxed to [facility] dept, pending diagnostic testing 09/10/2023 Movement disorder (I CD-10 - G25.9) is going to see neurologist 04/24/2023 Hypertension, unspec ified type (ICD-10 - I10) 05/21/2023 Type 2 diabetes shyann itus with diabetic neuropathy (ICD-10 - E11.40) 06/18/2023 Generalized weakness (ICD-10 - R53.1) is going to [facility] and advised to go to [facility] for balance 06/12/2023 Pure hypercholestero lemia (ICD-10 - E78.00) 12/17/2023 Neuropathy (ICD-10 - G62.9) need notes from dr brasher in [place]/ request for records will be sent 06/18/2023 Coronary atheroscler osis due to lipid rich plaque (ICD-10 - I25.83) need notes from [place] [facility]/ request will be sent 06/12/2023 Prostatism (ICD-10 - N40.0) 12/17/2023 Coronary atheroscler osis due to lipid rich plaque (ICD-10 - I25.83) stable, will continue current regiment 06/18/2023 Pure hypercholestero lemia (ICD-10 - E78.00) stable, will continue current regiment 06/12/2023 Hypercalcemia (ICD-1 0 - E83.52) 09/10/2023 Type 2 diabetes shyann itus with diabetic neuropathy (ICD-10 - E11.40) 06/18/2023 Prostatism (ICD-10 - N40.0) stable, will continue current regiment 06/12/2023 Hypertension, unspec ified type (ICD-10 - I10) 09/10/2023 Balance disorder (IC D-10 - R26.89) 06/18/2023 Hypertension, unspec ified type (ICD-10 - I10) doing well, will continue current regiment 06/18/2023 Dysthymia (ICD-10 - F34.1) doing well, will continue current regiment 06/18/2023 Anxiety (ICD-10 - F41.9) sta ble, will continue current regiment 06/18/2023 Colon cancer screeni ng (ICD-10 - Z12.11) guaiac negative 06/18/2023 Depression screening (ICD-10 - Z13.31) negative screen PLAN OF TREATMENT Pending Test Test Name Order Date Electrocardiogram (EKG) 05/04/2016 Electrocardiogram (EKG) 05/30/2019 MRI BRAIN NO CONTRAST 04/20/2023 EMG 09/10/2023 US arterial duplex LE BI 08/03/2022 arterial duplex UE BI 07/28/2022 Next Appt Details Provider Name:Pato Galarza ier, 06/12/2024 07:30:00 AM, [address], [address], [place], [place], [phone], Provider Name:Pato Galarza ier, 06/19/2024 01:00:00 PM, [address], [address], [place], [place], [id number], Insurance Providers Payer Name Payer Address Payer Phone Subscriber Number Group Number Insured Name Patient Relationship to Insured Coverage Start Date Coverage End Date MEDICARE NHIC [address] [place] [address] [id number] Tee Marte Self - patient is the insured MEDEX BC OF [facility] [id number] [place] [phone] [id number] Tee Marte Self - patient is the insured MEDICAL (GENERAL) HISTORY Medical History History ICD Code myocardial infarction thrombocytopenia diabetes mellitus colonoscopy done 01/15/04, 20/12, 01/08/13 - due in 5 years; colonoscopy done 07/18/17 w/Dr. Grijalva Elevated PSA ejection fraction 45% 2021
[2024-04-17 16:14] LABS: Anion Gap 12 (12-20); Blood Urea Nitrogen 36 mg/dL (9-16); Calcium 10.1 mg/dL (8.4-10.2); Carbon Dioxide 28 mmol/L (22-29); Chloride 104 mmol/L (96-108); Estimated Glomerular Filt Rate 37; Glucose Random 221 mg/dL (60-115); Potassium 4.4 mmol/L (3.3-5.1); Sodium 140 mmol/L (135-145)
== END 2024-04-17 13:41 | disposition home or self-care (01) ==
LOC: HO.LAB 13:40
PROVIDERS: PCP Internal Medicine; Visit Provider Internal Medicine Hypertension Specialist
DX: N20.0 Calculus of kidney (principal)
CPT/HCPCS: 36415; 80048

== ENCOUNTER 2024-04-28 10:06 | Outpatient (REF) | payer MEDICARE, SELFPAY ==
--- OUTSIDE RECORDS SUMMARY | 2024-04-28 11:04 | XMS_ITS ---
Author Organization Pato Rosario MD Address [address] [place] [phone] Care Team Providers Care Associate Research Scientist Name Role Phone aPto Rosario Primary Care Provider [phone] ALLERGIES No Known Allergies REASON FOR VISIT COUGHING, CONGESTED, /o fatigue, productive cough, congestion, headache sore throat, x 4days will test for Covid before Telehealth, Video [phone] MEDICATIONS Medication SIG (Take, Route, Frequency, Duration) [...] ONE TABLET BY MOUTH AT BEDTIME Active Citalopram Hydrobromide 20 MG TAKE ONE TABLET BY MOUTH EVERY DAY for 30 Active Nystatin 166536 UNIT/GM 1 application Externally Twice a day 06/18/2023 Active Zolpidem Tartrate 5 MG TAKE ONE TABLET B Y MOUTH EVERY EVENING AT BEDTIME for 30 11/12/2023 Active Tamsulosin HCl 0.4 MG TAKE 2 CAPSULES ON CE DAILY for 90 Active Ipratropium [place] 0.06 % USE 2 SPRAYS IN EACH NOSTRIL TWO TIMES A DAY for 11 Active Metoprolol Succinate 25 MG 1 capsule [...] Once a day for 30 day(s) Active VITAL SIGNS BMI 27.33 kg/m2 04/28/2024 Height 71 in 04/28/2024 Weight 196 lbs 04/28/2024 eight at home is 196 Bp not taken no temp Encounters Encounter Location Date Provider Diagnosis Pato Rosario MD [address] [place], [place] [phone] 04/28/2024 Pato Rosario Respiratory infection J98.8 ASSESSMENTS Encounter Date Diagnosis Assessment Notes Treatment Notes Treatment Clinical Notes 04/28/2024 Respiratory infection (ICD-10 - J98.8) PATIENT GO[place] [facility] , ORDER FAXED TO PATIENT REG PLAN OF TREATMENT Treatment Notes Assessment Notes Respiratory infection PATIENT GOING TO [facility] , ORDER FAXED TO PATIENT REG Pending Test Test Name Order Date SARS-CoV2/FLU/RSV 04/28/2024 Next Appt Details Provider Name:Pato Galarza ier, 06/12/2024 07:30:00 AM, [address] [place] [address], [address], [place], [place], [phone], Provider Name:Pato Galarza ier, 06/19/2024 01:00:00 PM, [address] [place] [address], [address], [place], [place], [phone], Progress Notes * Examination Category Sub-Category Detail Notes General Examination GENERAL APPEARANCE: alert, w ell hydrated, in no distress History and Physical Notes * HPI (History of Present Illness) Category Sub-Category Detail Notes Symptom(s) Telehealth Location of prov ider rendering services:: [address] [place] [address], [address] Location of patient:: at address listed in [...]
--- OUTSIDE RECORDS SUMMARY | 2024-04-28 11:04 | XMS_ITS ---
Author Organization Pato Rosario MD Address [address] [place] [phone] Care Team Providers Care Precipitator Supervisor Name Role Phone Pato Rosario Primary Care Provider ALLERGIES No Known Allergies RESULTS Component Value Reference Range Notes Glucose, finger stick Reviewed date:12/17/2023 01:23:24 PM Interpretation: Performing Lab: Notes/Report: Value 217 REASON FOR VISIT 6 month MEDICATIONS Medication SIG (Take, Route, Frequency, Duration) [...] ON CE DAILY for 90 Active Ipratropium [place] 0.06 % USE 2 SPRAYS IN EACH NOSTRIL TWO TIMES A DAY for 11 Active Citalopram Hydrobromide 20 MG TAKE ONE TABLET BY MOUTH EVERY DAY for 30 Active Nystatin 572048 UNIT/GM 1 application Externally Twice a day 06/18/2023 Active Allopurinol 300 MG TAKE ONE TABLET BY MOUTH EVERY DAY for 90 Active Tadalafil 20 MG 1 tablet Orally Once a day as needed for 30 day(s) 03/24/2021 Active AardvarkTouch Ultra Test - TEST 4XA DAY DIRECTED [...] the evening Orally Once a day Active VITAL SIGNS BMI 28.31 kg/m2 12/17/2023 Blood pressure systolic 122 mm Hg 12/17/19 24 Blood pressure diastolic 60 mm Hg 024 Height 71 in 12/17/2023 Weight 203 lbs 12/17/2023 Encounters Encounter Location Date Provider Diagnosis Pato Rosario MD [address] [place] [address] [address] [place], [place] [phone] 12/17/2023 Pato Rosario Type 2 diabetes mellitus with diabetic neuropathy E11.40 ; Yeast infection B37.9 ; Neuropathy G62.9 and Coronary atherosclerosis due to lipid rich plaque I25.83 ASSESSMENTS Encounter Date Diagnosis Assessment Notes Treatment Notes Treatment Clinical Notes 12/17/2023 Type 2 diabetes mellitus with diabetic neuropathy (ICD-10 - E11.40) stable, will cntinue current regiment 12/17/2023 Yeast infection (ICD-10 - B37.9) going to try going to [facility], will continue to monitor 12/17/2023 Neuropathy (ICD-10 - G62.9) need notes from dr guerra in [place]/ request for records will be sent 12/17/2023 Coronary atherosclerosis due to lipid rich plaque (ICD-10 - I25.83) stable, will continue current regiment PLAN OF TREATMENT Medication Medication Name Sig Start Date Stop Date Notes Nystatin 650967 UNIT/GM 1 application Ex ternally Twice a [...] t o every other day [facility], will continue to monitor Neuropathy need notes from dr arden lorenzo in [place]/ request for records will be sent Coronary atherosclerosis due to lipid rich plaque stable, will continue current regiment Next Appt Details Provider Name:Pato briones, 06/12/2024 07:30:00 AM, [address] [place] [address], [address], [phone], Provider Name:Pato briones, 06/19/2024 01:00:00 PM, [address] [place] [address], [place] [address], [place], [place], [phone], Progress Notes * Examination Category Sub-Category Detail Notes General Examination GENERAL APPEARANCE: alert, w ell hydrated, in no distress HEART: regular rate and rhy thm, no murmurs, rubs, gallops LUNGS: no wheezes, rales, r honchi, good air movement, clear to auscultation bilaterally NEUROLOGIC: has trouble with bal ance. SKIN: good turgor
--- OUTSIDE RECORDS SUMMARY | 2024-04-28 11:05 | XMS_ITS | Patient Health Record ---
Author Organization Pato Rosario MD Address [address] [place], [place] [id number] Care Team Providers Care Polymerization Oven Tender Name Role Phone Pato Rosario Primary Care Provider ALLERGIES No Known Allergies RESULTS Component Value Reference Range Notes MR head/brain wo con Reviewed date:05/16/2023 03:19:07 PM Interpretation: Performing Lab: Notes/Report: [address] [address] Magnetic Resonance Report Signed Patient: Tee Marte MR#: [id number] : 1945 Acct:[id number] Age/Sex: 77 / M ADM Date: 05/15/23 Loc: HO.MRI Attending Dr: Pato Rosario MD Ordering Physician: Pato Rosario MD Date of Service: 05/15/23 Procedure(s): MR head/brain wo con Accession Number(s): [id number] cc: Pato Rosario MD EXAMINATION: MR BRAIN [...] be due to chronic microangiopathy. There is qqcq-kx-tbwgamxa generalized brain parenchymal volume loss with concordant mild ex vacuo dilatation of the ventricles. No extra-axial fluid collections are seen. The brainstem and cerebellum are normal. The gradient refocused acquisition is normal. The craniovertebral junction, marrow signal, and midline structures are normal. The major intracranial flow voids at the level of the [place] of [place] are preserved. The dural venous [...] in OV> 05/15/23 1847 DD/ 0940 TD/TT: Community Coordinator: EDUARD Complete Blood Count Auto Di ff Reviewed date:06/12/2023 12:47:09 PM Interpretation: Performing Lab:[facility], [address] [place] [phone] Notes/Report: White Blood Count 8.2 4.8-10.8 X10*3/uL [...] NRBC Abs Auto 0.030 0.0-0.012 X10*3/uL Comprehensive Toutle. Panel Fa st Reviewed date:06/12/2023 12:37:16 PM Interpretation: Performing Lab:[facility], [address] [place] [phone] Notes/Report: Sodium 139 135-145 mmol/L Potassium 4.2 3.3-5.1 mmol/L Chloride 106 96-108 mmol/L Carbon Dioxide 25 22-29 mmol/L Anion Gap 12 12-20 Blood Urea Nitrogen 29 9-16 mg/dL Creatinine 1.83 0.5-1.4 mg/dL Estimated Glomerular Filt Rate 36 NOTE: For -Bulgarian individuals, multiply the result by 1.210. Chronic [...] Panel Reviewed date:06/12/2023 12:31:45 PM Interpretation: Performing Lab:[facility], [address] [place] [phone] Notes/Report: Triglycerides 432 <150 mg/dL Desirable Triglyceride: [...] Random Reviewed date:06/12/2023 12:32:39 PM Interpretation: Performing Lab:[facility], [address] [place] [phone] Notes/Report: Creatinine Urine 86.88 Microalbumin Urine 278.0 Microalbum/Creatinine Ratio Ur 319.9 <30 ug/mg cr Albumin/Creatinine Ratio Reference Ranges: Normal: < 30 ug/mg creatinine Microalbuminuria: 30 - 300 ug/mg creatinine Clinical Albuminuria: > 300 ug/mg creatinine Hemoglobin A1c Reviewed date:06/12/2023 12:31:59 PM Interpretation: Performing Lab:[facility], [address] [place] [phone] Notes/Report: Hemoglobin A1c % 7.7 <6.0 % [...] average glucose, using the formula of the G0Z-Jvolbor Average Glucose study (ADAG), Diabetes Care, Vol.31,#8, Nov. 2007 UA ClnCatch+Micro w/rflx Cul t Reviewed date:06/12/2023 04:17:54 PM Interpretation: Performing Lab:[facility], [address] [place] [phone] Notes/Report: [id number] Urine, Clean Catch Color Urine Yellow Appearance Urine Clear PH 5.0 5.0-9.0 Glucose Urine UA >=1000 Negative mg/dL Urine Blood Negative Negative Specific Tracy - Urine 1.025 1.005-1.025 Urine Protein 30 (1+) Neg-Trace mg/dL Urine Ketones Negative Negative mg/dL Nitrite Urine Negative Negative Leukocyte Esterase Urine Negative Negative RBC Urine 0-2 0-2 /HPF WBC Urine 0-5 0-5 /HPF Squamous Epithelial Cell Urine 0-2 0-2 /HPF Bacteria Urine None Seen None Seen Hyaline Casts Urine 0-2 0-2 /LPF SLIDE REVIEW Reviewed date:06/12/2023 12:35:45 PM Interpretation: Performing Lab:[facility], [address] [place] [phone] Notes/Report: SLIDE REVIEW VERIFIED Occult Blood, Stool, Guaiac Reviewed date:06/18/2023 11:03:55 AM Interpretation:Negative Performing Lab: Notes/Report: Negative Occult Blood, Stool, Guaiac Neg Glucose, finger stick Reviewed date:06/18/2023 09:33:11 AM Interpretation: Performing Lab: Notes/Report: Value 173 Hold Gold Reviewed date:12/10/2023 10:59:55 AM Interpretation: Performing Lab:[address] [phone] Notes/Report: Hold Gold See Note Specimen held untested for 24 hours; Call to request Chemistry testing. Liver Panel Reviewed date:12/10/2023 01:32:27 PM Interpretation: Performing Lab:[facility], [address] [place] [phone] Notes/Report: Bilirubin Total 0.7 0.0-1.0 mg/dL Bilirubin Direct 0.2 0.0-0.5 mg/dL Aspartate Amino Transferase 25 5-37 U/L Alanine Aminotransferase 31 0-40 U/L Total Protein 6.8 6.5-8.0 g/dL Albumin Level 4.0 3.5-5.0 g/dL Alkaline Phosphatase 86 39-117 U/L Glucose Fasting Reviewed date:12/10/2023 01:32:19 PM Interpretation: Performing Lab:[address] [phone] Notes/Report: Glucose Fasting 183 60-99 mg/dL A fasting glucose of 126 mg/dl or greater on more than one occasion is considered diagnostic of diabetes. Lipid Panel with Reflex Reviewed date:12/10/2023 01:32:10 PM Interpretation: Performing Lab:[facility], [address] [place] [phone] Notes/Report: Triglycerides 406 <150 mg/dL Desirable Triglyceride: [...] A1c Reviewed date:12/10/2023 12:33:41 PM Interpretation: Performing Lab:[address] [phone] Notes/Report: Hemoglobin A1c % 7.7 <6.0 % [...] average glucose, using the formula of the D4Q-Fuicsuj Average Glucose study (ADAG), Diabetes Care, Vol.31,#8, Nov. 2007 Glucose, finger stick Reviewed date:12/17/2023 01:23:24 PM Interpretation: Performing Lab: Notes/Report: Value 217 Basic Metabolic Panel Reviewed date:04/17/2024 04:48:46 PM Interpretation: Performing Lab:[facility], [address] [place] [phone] Notes/Report: Sodium 140 135-145 mmol/L Potassium 4.4 3.3-5.1 mmol/L Chloride 104 96-108 mmol/L Carbon Dioxide 28 22-29 mmol/L Anion Gap 12 12-20 Blood Urea Nitrogen 36 9-16 mg/dL Creatinine 1.78 0.5-1.4 mg/dL Estimated Glomerular Filt Rate 37 Chronic Kidney Disease: Estimated GFR < 60 mL/min/1.73m2 Severe Kidney Disease: Estimated GFR < 15 mL/min/1.73m2 Glucose Random 221 60-115 mg/dL Calcium 10.1 8.4-10.2 mg/dL REASON FOR REFERRAL No Information MEDICATIONS Medication SIG (Take, Route, Frequency, Duration) Notes Start Date End Date Status Zolpidem Tartrate 5 MG TAKE ONE TABLET B Y MOUTH EVERY EVENING AT BEDTIME for 30 11/12/2023 Active Nitrostat 0.400 1 tablet under the tongue and allow to dissolve as needed Sublingual every 5 mins times 3 for chest pain for 5 Not-Taking Tamsulosin HCl 0.4 MG TAKE 2 CAPSULES ON CE DAILY for 90 Active Ipratropium [place] 0.06 % USE 2 SPRAYS IN EACH NOSTRIL TWO TIMES A DAY for 11 Active Metoprolol Succinate 25 MG 1 capsule Orally Once a day Active Dapagliflozin Propanediol 10 MG TAKE 1 [...] Once a day for 30 day(s) Active LORazepam 0.5 MG TAKE ONE TABLET BY MOUTH EVERY DAY NEEDED for 30 08/05/2023 Not-Taking Allopurinol 300 MG TAKE ONE TABLET BY MOUTH EVERY DAY for 90 Active Citalopram Hydrobromide 20 MG TAKE ONE TABLET BY MOUTH EVERY DAY for 30 Active Nystatin 959727 UNIT/GM 1 application Externally Twice a day 06/18/2023 Active Fluticasone Propionate 0.050 Milligram 2 PUFF EACH NOSTRIL DAILY Nasally Once a day for 30 Not-Taking Zithromax Z-Deric 250 MG 2 tablet on the f irst day, then 1 tablet daily for 4 days Orally Once a day for 5 day(s) 03/23/2023 Not-Taki ng IMMUNIZATIONS Vaccine Route Administration Date Status Comme nts Shingles Unknown 08/04/2011 Administered Flu Vaccine IM Intramuscular 01/01/2012 Administered PPSV23 (Pnemovax) Unknown 01/16/2000 Administered Here in the office. Prevnar 13 IM Intramuscular 06/17/2012 Administered Flu Vaccine IM Intramuscular 01/21/2013 Administered Flu Vaccine Unknown 02/04/2014 Administered [facility] [place] Flu Vaccine Unknown 02/10/2015 Administered pt recieved the vaccine at [facility] in [facility]. PPSV23 (Pnemovax) IM Intramuscular 04/05/2015 Administered Fluarix Quadrivalent IM Intramuscular 01/17/2016 Administe red Fluarix Quadrivalent IM Intramuscular 02/02/2017 Administe red TDaP IM Intramuscular 10/31/2017 Administered pt was given the vaccine at [facility] in [place]. Shingrix Unknown 10/04/2017 [facility]ered [facility] Shingrix IM Intramuscular 12/19/2017 Administered pt had the vaccine at [facility] in [place]. Influenza High Dose IM Intramuscular 02/19/2018 Administer [...] Administer ed RSV Unknown 04/02/[address] [facility] SOCIAL HISTORY Tobacco Use: Social History Observation [...] Code Notes Problem Thrombocytopenia (D69.6) Active confirmed 525360240 Problem Balanitis (N48.1) Active confirmed 4488 2003 Problem Neuropathy (G62.9) Active confirmed 386 000864 Problem Prostatism (N40.0) Active confirmed 114 64198 Problem Tubular adenoma (D36.9) Active confirmed 555846724 Problem Anxiety (F41.9) Active confirmed 294525 02 Problem Coronary atherosclerosis due to lipid rich plaque (I25.83) Active confirmed 30374166 Problem Hypercalcemia (E83.52) Active confirmed Hypercalcemia (95397338) Problem Primary insomnia (F51.01) Active confirmed 0910896 Problem Vasomotor rhinitis (J30.0) Active confirmed 5913969 Problem Sciatica, right side (M54.31) Active confirmed 28331525255170186 Problem 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) Active confirmed 36579009 Problem History of kidney stones (Z87.442) Active confirmed 392047717 Problem Obstructive sleep apnea (G47.33) Active confirmed 72830132 Problem Vasculogenic erectil e dysfunction, unspecified vasculogenic erectile dysfunction type (N52.9) Active confirmed 712568906 Problem Dysthymia (F34.1) Active confirmed 7866 7006 Problem Claudication (I73.9) Active confirmed 6 2549885 Problem Pure hypercholesterolemia (E78.00) Active confirmed 736153716 Problem Hypoglycemia associated with diabetes (E11.649) Active confirmed 60193048 Problem Movement disorder (G25.9) Active confirmed 53772079 Problem Acute idiopathic gou t involving toe, 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) Active confirmed 50387168 Problem Hypertension, unspecified type (I10) Active confirmed 06595902 Problem Balance disorder (R26.89) Active confirmed 796681559 VITAL SIGNS Blood pressure diastolic 60 mm Hg 12/17/2023 Height 71 in 04/28/2024 eight at home i s 196 Bp not taken no temp Blood pressure systolic 122 mm Hg 12/17/2023 Weight 196 lbs 04/28/2024 eight at home i s 196 Bp not taken no temp BMI 27.33 kg/m2 04/28/2024 eight at home i s 196 Bp not taken no temp Encounters Encounter Location Date Provider Diagnosis Pato Rosario MD [address] [place] [id number] 06/18/2023 Pato Rosario Type 2 diabetes shyann itus with diabetic neuropathy E11.40 ; Candidal balanitis B37.42 ; Generalized weakness R53.1 ; Coronary atherosclerosis due to lipid rich plaque I25.83 ; Pure hypercholesterolemia E78.00 ; Prostatism N40.0 ; Hypertension, unspecified type I10 ; Dysthymia F34.1 ; Anxiety F41.9 ; Colon cancer screening Z12.11 and Depression screening Z13.31 Pato Rosario MD [address] [place] [id number] 06/12/2023 Pato Rosario Type 2 diabetes shyann itus with diabetic neuropathy E11.40 ; Pure hypercholesterolemia E78.00 ; Prostatism N40.0 ; Hypercalcemia E83.52 and Hypertension, unspecified type I10 Pato Rosario MD [address] [place] [id number] 12/10/2023 Pato Rosario Type 2 diabetes shyann itus with diabetic neuropathy E11.40 and Pure hypercholesterolemia E78.00 Pato Rosario MD [address] [place] [id number] 12/17/2023 Pato Rosario Type 2 diabetes shyann itus with diabetic neuropathy E11.40 ; Yeast infection B37.9 ; Neuropathy G62.9 and Coronary atherosclerosis due to lipid rich plaque I25.83 Pato Rosario MD [address] [place] [id number] 09/10/2023 Pato Rosario Neuropathy G62.9 ; Movement disorder G25.9 ; Type 2 diabetes mellitus with diabetic neuropathy E11.40 and Balance disorder R26.89 Pato Rosario MD [address] [place] [id number] 05/21/2023 Pato Rosario Type 2 diabetes shyann itus with diabetic neuropathy E11.40 Pato Rosario MD [address] [place] [address] [id number] 05/24/2023 Pato Rosario MD [address] [place] [address] [id number] 04/28/2024 Pato Rosario Respiratory infectio n J98.8 ASSESSMENTS Encounter Date Diagnosis Assessment Notes [...] 12/10/2023 Pure hypercholestero lemia (ICD-10 - E78.00) 12/17/2023 Yeast infection (ICD -10 - B37.9) going to try going to every other day on the [facility], will continue to monitor 12/17/2023 Type 2 diabetes shyann itus with diabetic neuropathy (ICD-10 - E11.40) stable, will cntinue current regiment 09/10/2023 Neuropathy (ICD-10 - G62.9) order faxed to [facility], pending diagnostic testing 09/10/2023 Movement disorder (I CD-10 - G25.9) is going to see neurologist 05/21/2023 Type 2 diabetes shyann itus with diabetic neuropathy (ICD-10 - E11.40) 04/28/2024 Respiratory infectio n (ICD-10 - J98.8) PATIENT GOING TO [facility] , ORDER FAXED TO PATIENT REG 06/18/2023 Generalized weakness (ICD-10 - R53.1) is going to [facility] and [facility] 06/12/2023 Pure hypercholestero lemia (ICD-10 - E78.00) 12/17/2023 Neuropathy (ICD-10 - G62.9) need notes from dr guerra in [place]/ request for records will be sent 06/18/2023 Coronary atheroscler osis due to lipid rich plaque (ICD-10 - I25.83) need notes from [facility]/ request will be sent 06/12/2023 Prostatism [...] 09/10/2023 US arterial duplex LE BI 08/03/2022 US arterial duplex UE BI 07/28/2022 SARS-CoV2/FLU/RSV 04/28/2024 Next Appt Details Provider Name:Pato pickettr, 06/12/2024 07:30:00 AM, [address] [place] [address], Suite [facility], [place], [place], [phone], Provider Name:Pato briones, 06/19/2024 01:00:00 PM, [address] [place] [address], Suite [facility], [place], [place], [phone], Insurance Providers Payer Name Payer Address Payer Phone Subscriber Number Group Number Insured Name Patient Relationship to Insured Coverage Start Date Coverage End Date [employer] [address] [place] [address] [id number] Tee Marte Self - patient is the insured [employer] OF [employer] [address] [place] [phone] [id number] MarteTee cates Self - patient is the insured MEDICAL (GENERAL) HISTORY Medical History History ICD Code myocardial infarction thrombocytopenia diabetes mellitus colonoscopy done 01/15/04, 20/12, 01/08/13 - due in 5 years; colonoscopy done 07/18/17 w/Dr. Grijalva Elevated PSA ejection fraction 45% 2021
--- OUTSIDE RECORDS SUMMARY | 2024-04-28 11:05 | XMS_ITS ---
Author Organization Pato Rosario MD Address [address] [place] [phone] Care Team Providers Care Oven Heater Name Role Phone Pato Rosario Primary Care Provider RESULTS Component Value Reference Range Notes Liver Panel Reviewed date:12/10/2023 01:32:27 PM Interpretation: Performing Lab:[facility], [address] [place] [phone] Notes/Report: Bilirubin Total 0.7 0.0-1.0 mg/dL Bilirubin Direct 0.2 0.0-0.5 mg/dL Aspartate Amino Transferase 25 5-37 U/L Alanine Aminotransferase 31 0-40 U/L Total Protein 6.8 6.5-8.0 g/dL Albumin Level 4.0 3.5-5.0 g/dL Alkaline Phosphatase 86 39-117 U/L Glucose Fasting Reviewed date:12/10/2023 01:32:19 PM Interpretation: Performing Lab:[facility], [address] [place] [phone] Notes/Report: Glucose Fasting 183 60-99 mg/dL A fasting glucose of 126 mg/dl or greater on more than one occasion is considered diagnostic of diabetes. Lipid Panel with Reflex Reviewed date:12/10/2023 01:32:10 PM Interpretation: Performing Lab:[facility], [address] [place] [phone] Notes/Report: Triglycerides 406 <150 mg/dL Desirable Triglyceride: [...] A1c Reviewed date:12/10/2023 12:33:41 PM Interpretation: Performing Lab:[facility], [address] [place] [phone] Notes/Report: Hemoglobin A1c % 7.7 <6.0 % [...] average glucose, using the formula of the P9H-Eiokmaj Average Glucose study (ADAG), Diabetes Care, Vol.31,#8, Nov. 2007 REASON FOR VISIT fasting lipids Encounters Encounter Location Date Provider Diagnosis Pato Rosario MD [address] [place] [address] Drive [address] [place], [place] [id number] 12/10/2023 Pato Rosario Type 2 diabetes shyann itus with diabetic neuropathy E11.40 and Pure hypercholesterolemia E78.00 ASSESSMENTS Encounter Date Diagnosis Assessment Notes Treatment Notes Treatment Clinical Notes 12/10/2023 Type 2 diabetes shyann itus with diabetic neuropathy (ICD-10 - E11.40) 12/10/2023 Pure hypercholestero lemia (ICD-10 - E78.00) PLAN OF TREATMENT Next Appt Details Provider Name:Pato briones, 06/12/2024 07:30:00 AM, [address] [place] [address], [address], [place], [place], [phone], Provider Name:Pato briones, 06/19/2024 01:00:00 PM, [address] [place] [address], [address], [place], [phone],
[2024-04-28 11:18] LABS: Influenza A PCR NEGATIVE (Negative); Influenza B PCR NEGATIVE (Negative); Resp Syncy Virus RNA Qual PCR NEGATIVE (Negative); SARS COV2 PCR INHOUSE NEGATIVE (Negative)
== END 2024-04-28 10:07 | disposition home or self-care (01) ==
LOC: HO.LAB 10:06
PROVIDERS: PCP Internal Medicine; Visit Provider Internal Medicine
DX: J06.9 Acute upper respiratory infection, unspecified (principal)
CPT/HCPCS: 0241U

== ENCOUNTER 2024-05-20 11:45 | Outpatient (AMB) | payer MEDICARE, SELFPAY ==
[2024-05-20 11:46] VITALS: BP 120/54; PULSE 69; O2SAT 95; BMI 28.2
--- NOTE | 2024-05-20 11:46 | HO.NEPHOV_ITS ---
Vital Signs 05/20/24 11:46 Height 5 ft 11 in Weight 202 lb BMI 28.2 BP 120/54 L Blood Pressure Location Lt brachial Position Sitting Pulse 69 Pulse Source Pulse Oximeter Pulse Oximetry (%) 95 Oxygen Delivery Method Room Air Intake Visit Reasons: follow up/ Conf Personnel Analyst Required: No Accompanied by: Self / Same As Patient Allergies No Known Allergies Allergy (Unknown, Verified 05/20/24 11:48) Medication List - Last Reconciled 05/20/24 by Donald Joy MD allopurinol 300 mg PO DAILY aspirin 81 mg PO DAILY citalopram 20 mg PO DAILY dapagliflozin propanediol 10 mg PO DAILY metformin 500 mg PO TID metoprolol succinate ER 25 mg PO DAILY omega 2-vqd-tmz-fish oil 100-160-1,000 mg (Fish Oil) 3000 mg daily simvastatin 20 mg PO BEDTIME sitagliptin phosphate (Januvia) 100 mg PO DAILY tamsulosin mg PO DAILY zolpidem 5 mg PO BEDTIME PRN HPI Comments Details: 78-year-old man with a showed nephrolithiasis and chronic kidney disease. He is here for semiannual follow-up. He has been having unsteady gait. Seen by Neurology underwent EMG and nerve conduction study He continues to take Tums. 05/20/24 Here for follow up No further renal stones. Has difficulty with DM Currently less active [facility] Social History Alcohol intake: current Patient Tobacco Use Status: Former Tobacco user Physical Exam Vital Signs: Last Vital Signs Pulse 69 05/20/24 11:46 BP 120/54 L 05/20/24 11:46 Pulse Ox 95 05/20/24 11:46 Oxygen Delivery Method Room Air 05/20/24 11:46 BMI result Body Mass Index 28.2 Results Reviewed Nephrology Results: Hgb 14.2 g/dl (14.0-18.0) 10/03/23 WBC 7.9 X10*3/uL (4.8-10.8) 10/03/23 Plt Count 137 X10*3/uL (160-400) L 10/03/23 Sodium 140 mmol/L (135-145) 04/17/24 Potassium 4.4 mmol/L (3.3-5.1) 04/17/24 Chloride 104 mmol/L (96-108) 04/17/24 Carbon Dioxide 28 mmol/L (22-29) 04/17/24 BUN 36 mg/dL (9-16) H 04/17/24 Creatinine 1.78 mg/dL (0.5-1.4) H 04/17/24 Calcium 10.1 mg/dL (8.4-10.2) 04/17/24 Phosphorus 2.4 mg/dL (2.7-4.5) L 10/03/23 PTH Intact 58.7 pg/mL (8.7-77.1) 10/03/23 Urine Protein 30 (1+) mg/dL (Neg-Trace) H 06/12/23 Urine Creatinine 86.88 mg/dL 06/12/23 Assessment & Plan Assessment & Plan (1) Nephrolithiasis: Comment: Still has renal stones but asymptomatic Code(s): N20.0 - Calculus of kidney Category: Medical Plan: Needs to stay on low-sodium diet Increase fluid intake to maintain a urine output of 2 L per 24 hours. (2) CKD (chronic kidney disease): Comment: CKD in a setting of longstanding diabetes mellitus and nephrolithiasis. Renal function stable Code(s): N18.9 - Chronic kidney disease, unspecified Category: Medical Plan: Goal is to slow the progression of renal disease Continue to avoid nephrotoxic agents. Continue with the SGLT2 inhibitors (3) Hypercalcemia: Comment: Intact PTH was 45. He was consuming excessive amount of Tums. Code(s): E83.52 - Hypercalcemia Category: Medical Plan: Avoid Tums. (4) Diabetes mellitus: Code(s): E11.9 - Type 2 diabetes mellitus without complications Category: Medical Plan: Goal A1c less than 7% Plan Bp is acceptable. No further hypotension Orders: Orders Basic Metabolic Panel 4 Months N18.9 - Chronic kidney disease, unspecified Parathyroid Hormone Intact 4 Months N18.9 - Chronic kidney disease, unspecified Coding Level of Care Code Est Pt Level 4 (73986) Diagnoses Nephrolithiasis N20.0 CKD (chronic kidney disease) N18.9 Hypercalcemia E83.52 Diabetes mellitus E11.9
--- OUTSIDE RECORDS SUMMARY | 2024-05-20 12:56 | XMS_ITS ---
Author Organization Pato Rosario MD Address [address] [place] [phone] Care Team Providers Care Attending Pathologist Name Role Phone Marlene Pato Primary Care Provider [phone] Allergies No Known Allergies Results Component Value Reference Range Notes SARS-CoV2/FLU/RSV Reviewed date:04/28/2024 12:46:42 PM Interpretation: Performing Lab:[facility], [address] [place] [phone] Notes/Report: Influenza A PCR NEGATIVE Negative Influenza [...] by authorized laboratories. Testing performed on the [employer] GeneXpert utilizing real-time RT-PCR. All SARS CoV2 and positive influenza A/B results are reported to [facility]. REASON FOR VISIT COUGHING, CONGESTED, /o fatigue, productive cough, congestion, headache sore throat, x 4days will test for Covid before Telehealth, Video [phone] Medications Medication SIG (Take, Route, Frequency, Duration) [...] MOUTH EVERY DAY for 30 Active Nystatin 912727 UNIT/GM 1 application Externally Twice a day 06/18/2023 Active Zolpidem Tartrate 5 MG TAKE ONE TABLET B Y MOUTH EVERY EVENING AT BEDTIME for 30 11/12/2023 Active Tamsulosin HCl 0.4 MG TAKE 2 CAPSULES ON CE DAILY for 90 Active Ipratropium [place] 0.06 % USE 2 SPRAYS IN EACH [...] Location Date Provider Diagnosis Pato Rosario MD [address] [place] [phone] 04/28/2024 Pato Rosario Respiratory infection J98.8 Assessments Encounter Date Diagnosis (ICD Code) Assessment Notes Treatment Notes Treatment Clinical Notes Section Notes 04/28/2024 Respiratory infection (ICD-10 - J98.8) PATIENT GOING TO [facility] , ORDER FAXED TO PATIENT REG, patient verbalized understanding of medication and directions for use Plan Of Treatment Medication Medication Name Sig Start Date Stop Date Notes Amoxicillin-Pot Clavulanate 875-125 MG 1 tablet Orally every 12 hrs for 10 days 04/28/2024 Treatment Notes Assessment Notes Respiratory infection PATIENT GOING TO [facility] , ORDER FAXED TO PATIENT REG, patient verbalized understanding of medication and directions for use Next Appt Details Provider Name:Pato briones, 06/12/2024 07:30:00 AM, [address] [place] [address], [place] [address], [place], [place], [phone], Provider Name:Pato briones, 06/19/2024 01:00:00 PM, [address] [place] [address], [address], [phone], Progress Notes * Tee MARTE MDOB:1945 (78 yo M)Acc No.[id number]:04/28/2024 Patient:?Tee Marte Provider:?Pato Rosario MD :1945???Age:78 Y???Sex:Male Bennie e:04/28/2024 Address:[address] [place] [address] [address] , [id number] Subjective: * Chief Complaints: * ???COUGHING, CONGESTED/o fat igue, productive cough, congestion, headache sore throat, x 4days will test for Covid before TelehealthVideo [phone] * HPI: ???Symptom(s):?Telehealth?Location of provider rendering services:?[address], [address],?Location of patient:?at address listed in demographics for today's visit,?Patient identification confirmed using:?Name, , SSN, Insurance information,?Telehealth method:?Video conference where patient is visible to the provider of care,?Consent:?Patient verbally consented to treatment, Patient verbally consented to billing insurance company, Patient informed of any privacy concerns related to method of visit.? patient is a 78 yo male video telehealth visit, complaiing of cough, congestion, fatiguie, headache, sore throat for 4 days. * ROS:?General/Constitutional:?Denies?Chills.?Admits?Fatigue.?Denies?Fever.?Admits?Headache.?ENT:?Patient denies?decreased sense of smell , any loss of taste?.?Admits?Sore throat.?Respiratory:?Admits?Cough.?Denies?Shortness of breath at rest.?Denies?Shortness of breath with exertion.?Admits?Sputum production.?Gastrointestinal:?Denies?Diarrhea.?Denies?Nausea.?Musculoskeletal:?Patient denies?muscle aches.?Peripheral Vascular:?Patient denies?red and blue toes.? * Medical History:? * Surgical History:? * Hospitalization/Major Diagno stic Procedure:? * Medications:?TakingAspirin 8 1 MG Tablet Chewable 1 tablet Orally Once a dayOneTouch Ultra Test - Strip TEST 4XA DAY DIRECTED Tadalafil 20 MG Tablet 1 tablet Orally Once a day as neededOneTouch Ultra - Strip TEST FOUR TIMES DAILY DIRECTED Metoprolol Succinate 25 MG Capsule ER 24 Hour Sprinkle 1 capsule Orally Once a dayIpratropium [place] 0.06 % Solution USE 2 SPRAYS IN [...] MG Tablet TAKE 1 TABLET DAILY Nystatin 494102 UNIT/GM Cream 1 application Externally Twice a [...] 1 capsule Orally Once a dayTaking Ipratropium [place] 0.06 % Solution USE 2 SPRAYS IN [...] Tablet TAKE 1 TABLET DAILY Taking Nystatin 553774 UNIT/GM Cream 1 application Externally Twice a [...] reviewed and reconciled with the patient * Allergies:?N.K.D.A.yes[Aller gies Verified] Objective: * Vitals:?Ht: 71, Wt:196, BMI: 27.33 eight at home is 196 Bp not taken no temp. * Examination: ???General Examination: ?GENERAL APPEARANCE:?alert, well hydrated, in no distress.? Assessment: * Assessment: 1.?Respiratory infection - J 98.8 (Primary)? Plan: * Treatment: * Procedure Codes:? * * Sign off status: Completed true * Provider:?Pato Rosario MD Date:?0 04/28/2024 Generated for Magnus serrano/Magda/Daquanitting on:?05/20/2024 12:56 PM EST History and Physical Notes * HPI (History of Present Illness) Category Sub-Category Detail Notes Category Not es Symptom(s) Telehealth [facility] ider rendering services:: [address], [address] patient is a 78 [...]
--- OUTSIDE RECORDS SUMMARY | 2024-05-20 12:56 | XMS_ITS ---
Author Organization Pato Rosario MD Address [address] [place] [phone] Care Team Providers Care Painter And Decorator Apprentice Name Role Phone Pato Rosario Primary Care Provider [phone] Allergies No Known Allergies Results Component [...] ON CE DAILY for 90 Active Ipratropium [place] 0.06 % USE 2 SPRAYS IN EACH NOSTRIL TWO TIMES A DAY for 11 Active Citalopram Hydrobromide 20 MG TAKE ONE TABLET BY MOUTH EVERY DAY for 30 Active Nystatin 325436 UNIT/GM 1 application Externally Twice a day 06/18/2023 Active Allopurinol 300 MG TAKE ONE TABLET BY MOUTH EVERY DAY for 90 Active Tadalafil 20 MG 1 tablet Orally Once a day as needed for 30 day(s) 03/24/2021 Active VaporWireTouch Ultra Test - TEST 4XA DAY DIRECTED [...] Location Date Provider Diagnosis Pato Rosario MD [address] [place] [address] [place] [phone] 12/17/2023 Pato Rosario Type 2 diabetes mellitus [...] going to every other day on the [facility], will continue to monitor 12/17/2023 Neuropathy (ICD-10 - G62.9) need notes from dr guerra in [place]/ request for records will be sent 12/17/2023 Coronary atherosclerosis due to lipid rich plaque (ICD-10 - I25.83) stable, will continue current regiment Plan Of Treatment Medication Medication Name Sig Start Date Stop Date Notes Nystatin 367228 UNIT/GM 1 application Ex ternally Twice a [...] t o every other day on the [facility], will continue to monitor Neuropathy need notes from dr arden lorenzo in [place]/ request for records will be sent Coronary atherosclerosis due to lipid rich plaque stable, will continue current regiment Next Appt Details Provider Name:Pato briones, 06/12/2024 07:30:00 AM, [address] [place] [address], [address], [phone], Provider Name:Pato briones, 06/19/2024 01:00:00 PM, [address] [place] [address], [place] [address], [place], [place], [phone], Progress Notes * Tee MARTE MDOB:1945 (78 yo M)Acc No.[id number]:12/17/2023 Progress Notes Patient:?Tee Marte Provider:?Pato Rosario MD :1945???Age:78 Y???Sex:Male Bennie e:12/17/2023 Address[address] [place] , [id number] Subjective: * Chief Complaints: * ???6 month * HPI: ???Symptom(s):? patint is a 78 yo male here for 6 month follow up visit. * ROS:?General/Constitutional:?Denies?Chills.?Denies?Fatigue.?Denies?Fever.?Denies?Headache.?ENT:?Patient denies?decreased sense of smell , any loss of taste , sore throat.?Denies?Sore throat.?Respiratory:?Denies?Cough.?Denies?Shortness of breath at rest.?Denies?Shortness of breath with exertion.?Gastrointestinal:?Denies?Diarrhea.?Denies?Nausea.?Musculoskeletal:?Patient denies?muscle aches.?Peripheral Vascular:?Patient denies?red and blue toes.? [...] Strip TEST FOUR TIMES DAILY DIRECTED Nystatin 113315 UNIT/GM Cream 1 application Externally Twice a dayMetoprolol Succinate 25 MG Capsule ER 24 Hour Sprinkle 1 capsule Orally Once a daySimvastatin 40 MG Tablet 1/2 tablet in the evening Orally Once a dayCitalopram Hydrobromide 20 MG Tablet TAKE ONE TABLET BY MOUTH EVERY DAY Ipratropium [place] 0.06 % Solution USE 2 SPRAYS IN [...] TEST FOUR TIMES DAILY DIRECTED Taking Nystatin 287563 UNIT/GM Cream 1 application Externally Twice a dayTaking Metoprolol Succinate 25 MG Capsule ER 24 Hour Sprinkle 1 capsule Orally Once a dayTaking Simvastatin 40 MG Tablet 1/2 tablet in the evening Orally Once a dayTaking Citalopram Hydrobromide 20 MG Tablet TAKE ONE TABLET BY MOUTH EVERY DAY Taking Ipratropium [place] 0.06 % Solution USE 2 SPRAYS IN [...] Allergies:?N.K.D.A.yes[Aller gies Verified] Objective: * Vitals:?Ht: 71, Wt:203, BMI: 28.31, BP:122/60. * ???Past Orders: ???Lab:Hemoglobin A1c (Order Date - 12/10/2023) (Collection Date - 12/10/2023) ? Value Reference Range ?Hemoglobin A1c % 7.7 H <6. 0 - % ?Estimated Average Glucose 174 - mg/dL ???Lab:Lipid Panel with Refl ex (Order Date - 12/10/2023) (Collection Date - 12/10/2023) ? Value Reference Range ?Triglycerides 406 H <150 - mg/dL ?Cholesterol 123 <200 - m g/dL ?LDL Cholesterol Calculated TNP <100 - mg/dL ?HDL Cholesterol 26 L >40 - mg/dL ???Lab:Glucose Fasting (Orde r Date - 12/10/2023) (Collection Date - 12/10/2023) ? Value Reference Range ?Glucose Fasting 183 H 60-9 9 - mg/dL ???Lab:Angel Trujillo (Order Date - 12/10/2023) (Collection Date - 12/10/2023) ? Value Reference Range ?Hold Ronnie See Note - * Examination: ???General Examination: ?GENERAL APPEARANCE:? alert, well hydrated, in no distress .?SKIN:? good turgor.?HEART:? regular rate and rhythm, no murmurs, rubs, gallops.?LUNGS:? no wheezes, rales, rhonchi, good air movement, clear to auscultation bilaterally.?NEUROLOGIC:? has trouble with balance. .? Assessment: * Assessment: 1.?Type 2 diabetes mellitus with diabetic neuropathy - E11.40 (Primary)?2.?Yeast infection - B37.9?3.?Neuropathy - G62.9?4.?Coronary atherosclerosis due to lipid rich plaque - I25.83? Plan: * Treatment: ? Value Reference Range ?Value 217 * JavieramijarredCristobalLinda B 4 01:23:23 PM EDT > Notes: stable, will cntinue current regiment.??2.?Yeast infection? Continue Nystatin Cream, 423343 UNIT/GM, 1 application, Externally, Twice a day.?? Notes: going to try going to every other day on the [facility], will continue to monitor.??3.?Neuropathy? Notes: need notes from dr guerra in [place]/ request for records will be sent.??4.?Coronary atherosclerosis due to lipid rich plaque? Continue Simvastatin Tablet, 40 MG, 1/2 tablet in the evening, Orally, Once a day.?? Notes: stable, will continue current regiment.?? * Procedure Codes:?76401 ASSAY , GLUCOSE, BLOOD QUANT, Modifiers: QW * * Sign off status: Completed true * Provider:?Pato Rosario MD Date:?0 12/17/2023 Generated for Magnus serrano/Magda/eTlyudmilasmitting on:?05/20/2024 12:55 PM EST History and Physical Notes * HPI (History of Present Illness) Category Sub-Category Detail Notes Category Not es Symptom(s) patint is a 78 yo male here [...]
--- OUTSIDE RECORDS SUMMARY | 2024-05-20 12:56 | XMS_ITS ---
Author Organization Pato Rosario MD Address [address] [place] [phone] Care Team Providers Care Anesthesiology Fellow Name Role Phone Pato Rosario Primary Care Provider [phone] Results Component Value Reference Range Notes Liver Panel Reviewed date:12/10/2023 01:32:27 PM Interpretation: Performing Lab:[facility], [address] [place] [phone] Notes/Report: Bilirubin Total 0.7 0.0-1.0 mg/dL Bilirubin Direct 0.2 0.0-0.5 mg/dL Aspartate Amino Transferase 25 5-37 U/L Alanine Aminotransferase 31 0-40 U/L Total Protein 6.8 6.5-8.0 g/dL Albumin Level 4.0 3.5-5.0 g/dL Alkaline Phosphatase 86 39-117 U/L Glucose Fasting Reviewed date:12/10/2023 01:32:19 PM Interpretation: Performing Lab:[facility], [address] [place] [phone] Notes/Report: Glucose Fasting 183 60-99 mg/dL A fasting glucose of 126 mg/dl or greater on more than one occasion is considered diagnostic of diabetes. Lipid Panel with Reflex Reviewed date:12/10/2023 01:32:10 PM Interpretation: Performing Lab:[facility], [address] [place] [phone] Notes/Report: Triglycerides 406 <150 mg/dL Desirable Triglyceride: [...] low results in patients with liver disease. CORRECTED REPORT Hemoglobin A1c Reviewed date:12/10/2023 12:33:41 PM Interpretation: Performing Lab:[facility], [address] [place] [phone] Notes/Report: Hemoglobin A1c % 7.7 <6.0 % [...] average glucose, using the formula of the [id number] Average Glucose study (ADAG), Diabetes Care, Vol.31,#8, Nov. 2007 REASON FOR VISIT fasting lipids Encounters Encounter Location Date Provider Diagnosis Pato Rosario MD [address] [place] [address] [place] [phone] 12/10/2023 Pato Rosario Type 2 diabetes shyann itus with diabetic neuropathy E11.40 and Pure hypercholesterolemia E78.00 Assessments Encounter Date Diagnosis (ICD Code) Assessment Notes Treatment Notes Treatment Clinical Notes Section Notes 12/10/2023 Type 2 diabetes shyann itus with diabetic neuropathy (ICD-10 - E11.40) 12/10/2023 Pure hypercholesterolemia (ICD-10 - E78.00) Plan Of Treatment Next Appt Details Provider Name:Pato briones, 06/12/2024 07:30:00 AM, [address] [place] [address], [place] [address], [place], [place], [phone], Provider Name:Pato briones, 06/19/2024 01:00:00 PM, [address] [place] [address], [address] [facility], [place], [place], [phone], Progress Notes * Tee MARTE MDOB:1945 (78 yo M)Acc No.[id number]:12/10/2023 Progress Note Patient:?Tee MARTE Provider:?Pato Rosario MD :1945???Age:78 Y???Sex:Male Bennie e:12/10/2023 Address:[address] [place] [address] [place] [id number] Subjective: * Chief Complaints: * ???1. Fasting lipids. * Medical History:? Objective: * Vitals:? Assessment: * Assessment: 1.?Type 2 diabetes mellitus with diabetic neuropathy - E11.40 (Primary)???2.?Pure hypercholesterolemia - E78.00??? Plan: * Treatment: 2.?Pure hypercholesterolemia ?LAB: Liver Panel (Collection Date & Time - 12/10/2023 08:00 AM) ?LAB: Glucose Fasting (Collection Date & Time - 12/10/2023 08:00 AM) ?LAB: Lipid Panel with Reflex (Collection Date & Time - 12/10/2023 08:00 AM) ?LAB: Hemoglobin A1c (Collection Date & Time - 12/10/2023 08:00 AM) * Procedure Codes:?39631 VENIP UNCT, ROUTINE* * * The named appointment provid er may or may not be the originator of this progress note, and it is not deemed complete until electronically signed by the appointment provider. Sign off status: Pending * Provider:?Pato Rosario MD Date:?0 12/10/2023 Generated for Magnus serrano/Magda/Daquanitting on:?05/20/2024 12:56 PM EST
--- OUTSIDE RECORDS SUMMARY | 2024-05-20 12:56 | XMS_ITS | Clinical Summary ---
Author Organization [facility] Address [address] [place] [phone] Phone Care Team Providers Care Mitten Stitcher Name Role Phone Pato Rosario MD Primary Care Provider [phone] Allergies No known active allergies Medications fish oil-omega-3 fatty acids 1000 MG capsule Take 3 capsules by mouth daily Active GLUCOSAMINE-CHO NDROIT-VIT C-MN PO Orally Active allopurinol (ZYLOPRIM) 300 MG tablet Take 300 mg by mouth 1 (one) time each day 07/08/2020 Active aspirin (ST MARY) 81 MG EC tablet Take 1 tablet by mouth 1 (one) time each day Active citalopram (CeleXA) 20 MG tablet Take 20 mg by mouth 1 (one) time each day 09/21/2020 Active simvastatin (ZOCOR) 20 MG tablet Take 20 mg by mouth every night Active LORazepam (ATIVAN) 0.5 MG tablet Take 0.5 mg by mouth every 6 (six) hours if needed for anxiety Active zolpidem (AMBIEN) 5 MG tablet Take 5 mg by mouth at night if needed for sleep Active pioglitazone-me tFORMIN XR (ACTOPLUS MET XR) 15-1000 MG per 24 hr tablet Take 1 tablet by mouth 1 (one) time each day Do not crush, chew, or split. Active SITagliptin (JANUVIA) 100 MG tablet Take 100 mg by mouth 1 (one) time each day Active Farxiga 10 MG tablet Take 10 mg by mouth 1 (one) time each day 07/31/2021 Active losartan (COZAAR) 50 MG tablet TAKE ONE TABLET BY MOUTH EVERY DAY 90 tablet 3 03/09/2022 Active Active Problems Problem Noted Date Diagnosed Date Chronic kidney disease 09/23/2020 Essential hypertension 09/23/2020 Hydronephrosis 09/23/2020 Renal disorder due to type 2 diabetes mellitus 0 09/23/2020 Gout 08/01/2019 Coronary atherosclerosis 09/08/2017 Mixed hyperlipidemia 09/08/2017 Thrombocytopenia 09/08/2017 Family History Medical History Relation Comments Gout Father Stroke Father Dementia Mother Relation Status Comments Father Mother Social History Tobacco Use Types Packs/Day Years Used Date Smoking Tobacco: Former Cigarettes Q uit: 04/23/1978 Smokeless Tobacco: Never Tobacco Cessation:Counseling Given: Not Answered Alcohol Use Standard Drinks/Week Comments Yes 0 (1 standard drink = 0.6 oz pure alcohol) Alcoholic Drinks/day: Occasional social drink Sex and Gender Information Value Date Recorded Sex Assigned at Not on file Legal Sex Male 5:06 PM EST Gender Identity Not on file Sexual Orientation Not on file Last Filed Vital Signs Vital Sign Reading Time Taken Comments Blood Pressure 118/62 01/11/2023 2:29 PM EDT Pulse 67 01/11/2023 2:29 PM EDT Temperature - - Respiratory Rate - - Oxygen Saturation 96% 01/11/2023 2:29 PM EDT Inhaled Oxygen Concentration - - Weight 92.8 kg (204 lb 9.6 oz) 01/11/2023 2:29 P M EDT Height 180.3 cm (5' 11 ) 01/11/2023 2:29 PM EDT Body Mass Index 28.54 01/11/2023 2:29 PM EDT Plan of Treatment Health Maintenance Due Date Last Done Comments Pneumococcal Vaccine: 65+ Ye ars (2 of 2 - PCV) 02/19/2015 02/19/2014 Diabetes: Hemoglobin A1C 05/24/2020 Diabetes: Ophthalmology Exam 05/24/2020 Diabetes: Pedal Pulse Checked 05/24/2020 Diabetes: Sensory Foot Exam 05/24/2020 Diabetes: Visual Foot Exam 05/24/2020 Influenza Vaccine (#1) 2023 Hepatitis B Vaccine Aged Out No longe r eligible based on patient's age to complete this topic Insurance [facility] [place] MEDICARE [facility] MEDICARE Care Teams Mitten Stitcher Relationship Specialty Start Date End Date Pato Rosaroi MD [address] [place], [place] PCP - General 05/03/20
== END 2024-05-20 12:01 | disposition home or self-care (01) ==
PROVIDERS: PCP Internal Medicine; Visit Provider Internal Medicine Hypertension Specialist
DX: N20.0 Calculus of kidney (principal); N18.9 Chronic kidney disease, unspecified; E83.52 Hypercalcemia; E11.9 Type 2 diabetes mellitus without complications
CPT/HCPCS: 99214

== ENCOUNTER → 2024-05-20 11:45 | Outpatient (BNVA) | payer MEDICARE, SELFPAY | PROVIDERS: PCP Internal Medicine; Visit Provider Internal Medicine Hypertension Specialist | DX: E11.22 Type 2 diabetes mellitus with diabetic chronic kidney disease (principal); N18.9 Chronic kidney disease, unspecified; E83.52 Hypercalcemia; N20.0 Calculus of kidney | CPT/HCPCS: 99212 ==

== ENCOUNTER 2024-06-12 12:00 | Outpatient (REF) | payer MEDICARE, SELFPAY ==
[2024-06-12 12:06] LABS: MANUAL DIFF FLAG NO
[2024-06-12 12:13] LABS: Mean Corpuscular Volume 87.6 fL (80.0-98.0); PLT CLUMP 1; Red Cell Distribution Width 13.5 % (11.0-16.0); SCAN SMEAR FLAG 1
[2024-06-12 12:14] LABS: Appearance Urine Clear; Color Urine Yellow; Glucose Urine UA >=1000 mg/dL (Negative); Leukocyte Esterase Urine Negative (Negative); Nitrite Urine Negative (Negative); Specific Gravity - Urine >= 1.030 (1.005-1.025); UMIC TRIGGER UACC YES; Urine Blood Negative (Negative); Urine Ketones Negative (Negative); Urine Protein 100 (2+) mg/dL (Neg-Trace)
[2024-06-12 12:15] LABS: Basophils Absolute Auto 0.1 X10*3/uL (0.0-0.2); Basophils Percent Auto 0.9 % (0-2); Eosinophils Absolute Auto 0.5 X10*3/uL (0.0-0.4); Eosinophils Percent Auto 5.9 % (0-4); Hematocrit 42.4 % (42.0-52.0); Hemoglobin 14.6 g/dl (14.0-18.0); Imm Gran Abs Auto 0.04 X10*3/uL (0.00-0.03); Imm Gran Pct Auto 0.5 % (0.0-0.4); Lymphocytes Absolute Auto 1.9 X10*3/uL (1.2-4.9); Lymphocytes Percent Auto 24.7 % (20-40); Mean Corpuscular HGB Conc 34.4 g/dl (31.0-36.0); Mean Corpuscular Hemoglobin 30.2 pg (27.0-33.0); Mean Platelet Volume 11.3 fL (9.4-12.4); Monocytes Absolute Auto 0.7 X10*3/uL (0.1-1.2); Monocytes Percent Auto 9.4 % (2-11); Neutrophils Absolute Auto 4.4 x10*3/uL (2.0-8.3); Neutrophils Percent Auto 58.6 % (45-73); Platelet Count 107 X10*3/uL (160-400); Red Blood Count 4.84 X10*6/uL (4.60-5.80); White Blood Count 7.6 X10*3/uL (4.8-10.8)
[2024-06-12 12:19] LABS: Bacteria Urine None Seen (None Seen); Hyaline Casts Urine 0-2 /LPF (0-2); RBC Urine 0-2 /HPF (0-2); Squamous Epithelial Cell Urine 0-2 /HPF (0-2); WBC Urine 0-5 /HPF (0-5)
[2024-06-12 12:29] LABS: Alanine Aminotransferase 47 U/L (0-40); Alkaline Phosphatase 83 U/L (39-117); Anion Gap 12 (12-20); Aspartate Amino Transferase 37 U/L (5-37); Bilirubin Total 0.8 mg/dL (0.0-1.0); Blood Urea Nitrogen 31 mg/dL (9-16); Calcium 9.8 mg/dL (8.4-10.2); Carbon Dioxide 27 mmol/L (22-29); Chloride 107 mmol/L (96-108); Cholesterol 130 mg/dL (<200); Estimated Glomerular Filt Rate 46; Glucose Fasting 136 mg/dL (60-99); HDL Cholesterol 31 mg/dL (>40); LDL Cholesterol Calculated 38 mg/dL (<100); Potassium 4.1 mmol/L (3.3-5.1); Sodium 142 mmol/L (135-145); Total Protein 7.1 g/dL (6.5-8.0); Triglycerides 308 mg/dL (<150)
[2024-06-12 12:31] LABS: Estimated Average Glucose 180 mg/dL; Hemoglobin A1C 233.8846 umol/L; Hemoglobin A1c % 7.9 % (<6.0); Total Hemoglobin (HGBA1C) 3734.0017 umol/L
[2024-06-12 12:45] LABS: PSA,Total (Free>4and<10) 4.26 ng/mL (0.00-4.00)
[2024-06-12 13:07] LABS: Creatinine Urine 80.67 mg/dL
--- OUTSIDE RECORDS SUMMARY | 2024-06-12 13:08 | XMS_ITS ---
Author Organization Pato Rosario MD Address [address] [place] [phone] Care Team Providers Care Tarring Machine Operator Name Role Phone Pato Rosario Primary Care Provider Allergies No Known Allergies Results Component Value [...] ON CE DAILY for 90 Active Ipratropium [place] 0.06 % USE 2 SPRAYS IN EACH NOSTRIL TWO TIMES A DAY for 11 Active Citalopram Hydrobromide 20 MG TAKE ONE TABLET BY MOUTH EVERY DAY for 30 Active Nystatin 800447 UNIT/GM 1 application Externally Twice a day 06/18/2023 Active Allopurinol 300 MG TAKE ONE TABLET BY MOUTH EVERY DAY for 90 Active Tadalafil 20 MG 1 tablet Orally Once a day as needed for 30 day(s) 03/24/2021 Active The MuseTouch Ultra Test - TEST 4XA DAY DIRECTED [...] Date Provider Diagnosis Pato Rosario MD [address] [place] [address] [place] [phone] 12/17/2023 Pato Rosario Type 2 diabetes mellitus [...] going to every other day on the [facility], will continue to monitor 12/17/2023 Neuropathy (ICD-10 - G62.9) need notes from dr guerra in [place]/ request for records will be sent 12/17/2023 Coronary atherosclerosis due to lipid rich plaque (ICD-10 - I25.83) stable, will continue current regiment Plan Of Treatment Medication Medication Name Sig Start Date Stop Date Notes Nystatin 223352 UNIT/GM 1 application Ex ternally Twice a [...] t o every other day on the [facility], will continue to monitor Neuropathy need notes from dr arden lorenzo in [place]/ request for records will be sent Coronary atherosclerosis due to lipid rich plaque stable, will continue current regiment Next Appt Details Provider Name:Pato briones, 06/19/2024 01:00:00 PM, [address] [place] [address], [address], [phone], Progress Notes * Tee MARTE MDOB:1945 (78 yo M)Acc No.[id number]:12/17/2023 Progress Notes Patient:?Tee Marte Provider:?Pato Rosario MD :1945???Age:78 Y???Sex:Male Bennie e:12/17/2023 Address:[address] [place] [address] J[place]SLEY [id number] Subjective: * Chief Complaints: * ???6 month [...] Strip TEST FOUR TIMES DAILY DIRECTED Nystatin 321405 UNIT/GM Cream 1 application Externally Twice a dayMetoprolol Succinate 25 MG Capsule ER 24 Hour Sprinkle 1 capsule Orally Once a daySimvastatin 40 MG Tablet 1/2 tablet in the evening Orally Once a dayCitalopram Hydrobromide 20 MG Tablet TAKE ONE TABLET BY MOUTH EVERY DAY Ipratropium [place] 0.06 % Solution USE 2 SPRAYS IN [...] TEST FOUR TIMES DAILY DIRECTED Taking Nystatin 169281 UNIT/GM Cream 1 application Externally Twice a dayTaking Metoprolol Succinate 25 MG Capsule ER 24 Hour Sprinkle 1 capsule Orally Once a dayTaking Simvastatin 40 MG Tablet 1/2 tablet in the evening Orally Once a dayTaking Citalopram Hydrobromide 20 MG Tablet TAKE ONE TABLET BY MOUTH EVERY DAY Taking Ipratropium [place] 0.06 % Solution USE 2 SPRAYS IN [...] Date - 12/10/2023) ? Value Reference Range ?Angel Trujillo See Note - * Examination: ???General Examination: [...] ? Value Reference Range ?Value 217 * Linda Coombs 4 01:23:23 PM EDT > Notes: stable, will cntinue current regiment.??2.?Yeast infection? Continue Nystatin Cream, 831219 UNIT/GM, 1 application, Externally, Twice a day.?? Notes: going to try going to every other day on the [facility], will continue to monitor.??3.?Neuropathy? Notes: need notes from dr guerra in [place]/ request for records will be sent.??4.?Coronary atherosclerosis due to lipid rich plaque? Continue Simvastatin Tablet, 40 MG, 1/2 tablet in the evening, Orally, Once a day.?? Notes: stable, will continue current regiment.?? * Procedure Codes:?06647 ASSAY , GLUCOSE, BLOOD QUANT, Modifiers: QW * * Sign off status: Completed true * Provider:?Pato Rosario MD Date:?0 12/17/2023 Generated for Magnus serrano/Magda/Zachary on:?06/12/2024 01:08 PM EST History and Physical Notes * [...]
--- OUTSIDE RECORDS SUMMARY | 2024-06-12 13:08 | XMS_ITS ---
Author Organization Pato Rosario MD Address [address] [place], [place] [phone] Care Team Providers Care Electric Sealing Machine Operator Name Role Phone Marlene Pato Primary Care Provider Results Component Value Reference Range Notes UA ClnCatch+Micro w/rflx Cul t (Not yet reviewed by provider) Interpretation: Performing Lab:[facility], [address] [place] [phone] Notes/Report: Urine, Clean Catch Color Urine Yellow Appearance Urine Clear PH 5.0 5.0-9.0 Glucose Urine UA >=1000 Negative mg/dL Urine Blood Negative Negative Specific [place] - Urine >= 1.030 1.005-1.025 Urine Protein 100 (2+) Neg-Trace mg/dL Urine Ketones Negative Negative mg/dL Nitrite Urine Negative Negative Leukocyte Esterase Urine Negative Negative RBC Urine 0-2 0-2 /HPF WBC Urine 0-5 0-5 /HPF Squamous Epithelial Cell Urine 0-2 0-2 /HPF Bacteria Urine None Seen None Seen Hyaline Casts Urine 0-2 0-2 /LPF Complete Blood Count Auto Di ff Reviewed date:06/12/2024 12:51:51 PM Interpretation: Performing Lab:[facility], [address] [place] [phone] Notes/Report: White Blood Count 7.6 4.8-10.8 X10*3/uL [...] NRBC Abs Auto 0.000 0.0-0.012 X10*3/uL Comprehensive [place]. Panel Fa st Reviewed date:06/12/2024 12:47:20 PM Interpretation: Performing Lab:[facility], [address] [place] [phone] Notes/Report: Sodium 142 135-145 mmol/L Potassium 4.1 [...] Panel Reviewed date:06/12/2024 12:43:28 PM Interpretation: Performing Lab:[facility], [address] [place] [phone] Notes/Report: Triglycerides 308 <150 mg/dL Desirable Triglyceride: [...] (Free>4and<10) Reviewed date:06/12/2024 12:54:14 PM Interpretation: Performing Lab:[facility], [address] [place] [phone] Notes/Report: PSA,Total (Free>4and<10) 4.26 0.00-4.00 ng/mL PSA methodology: Snowden Alinity i Chemiluminescent Microparticle Immunoassay (CMIA) Hemoglobin A1c Reviewed date:06/12/2024 12:43:17 PM Interpretation: Performing Lab:[facility], [address] [place] [phone] Notes/Report: Hemoglobin A1c % 7.9 <6.0 % [...] average glucose, using the formula of the V2U-Rvpxwuh Average Glucose study (ADAG), Diabetes Care, Vol.31,#8, Nov. 2007 REASON FOR VISIT yearly fasting labs Encounters Encounter Location Date Provider Diagnosis Pato Rosario MD [address] [place] [address] [address] [place], [place] [phone] 06/12/2024 Pato Rosario Type 2 diabetes mellitus [...] type (ICD-10 - I10) Plan Of Treatment Pending Test Test Name Order Date Microalbumin, Random 06/12/2024 UA ClnCatch+Micro w/rflx Cult 06/12/2024 Next Appt Details Provider Name:Pato Galarza ier, 06/19/2024 01:00:00 PM, [address], [address], [place], [phone], Progress Notes * Tee MARTE MDOB:1945 (79 yo M)Acc No.[id number]:06/12/2024 Progress Note Patient:?Tee MARTE Provider:?Pato Rosario MD :1945???Age:79 Y???Sex:Male Bennie e:06/12/2024 Address:[address] [place] [address] , [place] [id number] Subjective: * Chief Complaints: * ???1. Yearly fasting labs. * Medical History:? Objective: * Vitals:? Assessment: * Assessment: 1.?Type 2 diabetes mellitus with diabetic neuropathy - E11.40 (Primary)???2.?Thrombocytopenia - D69.6???3.?Prostatism - N40.0???4.?Hypertension, unspecified type - I10??? Plan: * Treatment: 2.?Thrombocytopenia?LAB: Microalbumin, Random ?LAB: UA ClnCatch+Micro w/rflx Cult (Collection Date & Time - 06/12/2024 09:50 AM) ?LAB: Complete Blood Count Auto Diff (Collection Date & Time - 06/12/2024 09:50 AM) ?LAB: Comprehensive [place]. Panel Fast (Collection Date & Time - 06/12/2024 09:50 AM) ?LAB: Lipid Panel (Collection Date & Time - 06/12/2024 09:50 AM) ?LAB: PSA,Total (Free>4and<10) (Collection Date & Time - 06/12/2024 09:50 AM) ?LAB: Hemoglobin A1c (Collection Date & Time - 06/12/2024 09:50 AM) 3.?Prostatism?LAB: Microalbumin, Random ?LAB: UA ClnCatch+Micro w/rflx Cult (Collection Date & Time - 06/12/2024 09:50 AM) ?LAB: Complete Blood Count Auto Diff (Collection Date & Time - 06/12/2024 09:50 AM) ?LAB: Comprehensive [place]. Panel Fast (Collection Date & Time - 06/12/2024 09:50 AM) ?LAB: Lipid Panel (Collection Date & Time - 06/12/2024 09:50 AM) ?LAB: PSA,Total (Free>4and<10) (Collection Date & Time - 06/12/2024 09:50 AM) ?LAB: Hemoglobin A1c (Collection Date & Time - 06/12/2024 09:50 AM) 4.?Hypertension, unspecified type?LAB: Microalbumin, Random ?LAB: UA ClnCatch+Micro w/rflx Cult (Collection Date & Time - 06/12/2024 09:50 AM) ?LAB: Complete Blood Count Auto Diff (Collection Date & Time - 06/12/2024 09:50 AM) ?LAB: Comprehensive [place]. Panel Fast (Collection Date & Time - 06/12/2024 09:50 AM) ?LAB: Lipid Panel (Collection Date & Time - 06/12/2024 09:50 AM) ?LAB: PSA,Total (Free>4and<10) (Collection Date & Time - 06/12/2024 09:50 AM) ?LAB: Hemoglobin A1c (Collection Date & Time - 06/12/2024 09:50 AM) * Procedure Codes:?79249 VENIP UNCT, ROUTINE* * * The named appointment provid er may or may not be the originator of this progress note, and it is not deemed complete until electronically signed by the appointment provider. Sign off status: Pending * Provider:?Pato Rosario MD Date:?0 06/12/2024 Generated for Magnus ng/Magda/eTransmitting on:?06/12/2024 01:08 PM EST
--- OUTSIDE RECORDS SUMMARY | 2024-06-12 13:09 | XMS_ITS | Clinical Summary ---
Author Organization [facility] Address [address] [address] [place] [phone] Phone Care Team Providers Care Roof Tile Layer Name Role Phone Pato Rosario MD Primary Care Provider Allergies No known active allergies Medications fish [...] patient's age to complete this topic Insurance [facility] [place] MEDICARE [facility] MEDICARE Care Teams Roof Tile Layer Relationship Specialty Start Date End Date Pato Rosario MD [address] [place], [place] PCP - General 05/03/20
--- OUTSIDE RECORDS SUMMARY | 2024-06-12 13:09 | XMS_ITS ---
Author Organization Pato Rosario MD Address [address] [place] [phone] Care Team Providers Care Computational Mathematician Name Role Phone Marlene Pato Primary Care Provider Allergies No Known Allergies Results Component Value Reference Range Notes SARS-CoV2/FLU/RSV Reviewed date:04/28/2024 12:46:42 PM Interpretation: Performing Lab:[facility], [address] [place] [phone] Notes/Report: Influenza A PCR NEGATIVE Negative Influenza [...] by authorized laboratories. Testing performed on the [employer] GeneXpert utilizing real-time RT-PCR. All SARS CoV2 and positive influenza A/B results are reported to [facility]. REASON FOR VISIT COUGHING, CONGESTED, /o fatigue, productive cough, congestion, headache sore throat, x 4days will test for Covid before Telehealth, Video [phone] Medications Medication SIG (Take, Route, Frequency, Duration) [...] MOUTH EVERY DAY for 30 Active Nystatin 626561 UNIT/GM 1 application Externally Twice a day 06/18/2023 Active Zolpidem Tartrate 5 MG TAKE ONE TABLET B Y MOUTH EVERY EVENING AT BEDTIME for 30 11/12/2023 Active Tamsulosin HCl 0.4 MG TAKE 2 CAPSULES ON CE DAILY for 90 Active Ipratropium [place] 0.06 % USE 2 SPRAYS IN EACH [...] Location Date Provider Diagnosis Pato Rosario MD [address] [place] [address] [place] [phone] 04/28/2024 Pato Rosario Respiratory infection J98.8 Assessments Encounter Date Diagnosis (ICD Code) Assessment Notes Treatment Notes Treatment Clinical Notes Section Notes 04/28/2024 Respiratory infection (ICD-10 - J98.8) PATIENT GOING TO [facility] , ORDER FAXED TO PATIENT REG, patient verbalized understanding of medication and directions for use Plan Of Treatment Medication Medication Name Sig Start Date Stop Date Notes Amoxicillin-Pot Clavulanate 875-125 MG 1 tablet Orally every 12 hrs for 10 days 04/28/2024 Treatment Notes Assessment Notes Respiratory infection PATIENT GOING TO [facility] , ORDER FAXED TO PATIENT REG, patient verbalized understanding of medication and directions for use Next Appt Details Provider Name:Pato Galarza ier, 06/19/2024 01:00:00 PM, [address] [place] [address], Suite [facility], [place], [place], [phone], Progress Notes * Tee MARTE MDOB:1945 (78 yo M)Acc No.[id number]:04/28/2024 Patient:?Tee Marte Provider:?Pato Rosario MD :1945???Age:78 Y???Sex:Male Bennie e:04/28/2024 Address:[address] [place] [address] [place] [id number] Subjective: * Chief Complaints: * ???COUGHING, CONGESTED/o fat igue, productive cough, congestion, headache sore throat, x 4days will test for Covid before Telehealthdeo [phone] * HPI: ???Symptom(s):?Telehealth?Location of provider rendering services:?10 [...] Sprinkle 1 capsule Orally Once a dayIpratropium [place] 0.06 % Solution USE 2 SPRAYS IN [...] MG Tablet TAKE 1 TABLET DAILY Nystatin 192462 UNIT/GM Cream 1 application Externally Twice a [...] 1 capsule Orally Once a dayTaking Ipratropium [place] 0.06 % Solution USE 2 SPRAYS IN [...] Tablet TAKE 1 TABLET DAILY Taking Nystatin 730400 UNIT/GM Cream 1 application Externally Twice a [...] Rosario MD Date:?0 04/28/2024 Generated for Magnus serrano/Magda/eTlyudmilasmitting on:?06/12/2024 01:09 PM EST History and Physical Notes * HPI (History of Present Illness) Category Sub-Category Detail Notes Category Not es Symptom(s) [facility]:: [address], [address] [...]
[2024-06-12 13:15] LABS: Microalbum/Creatinine Ratio Ur 997.8 ug/mg cr (<30)
[2024-06-13 12:08] LABS: Free Prostate Spec Ag 0.8 ng/mL; Percent Free Prostate Spec Ag 19 % (calc) (>25); Prostate Specific Ag Total 4.3 ng/mL (< OR = 4.0)
== END 2024-06-12 12:01 | disposition home or self-care (01) ==
LOC: HO.LNP 12:00
PROVIDERS: Visit Provider Internal Medicine
DX: E11.40 Type 2 diabetes mellitus with diabetic neuropathy, unspecified (principal); Z12.5 Encounter for screening for malignant neoplasm of prostate; D69.6 Thrombocytopenia, unspecified; N40.0 Benign prostatic hyperplasia without lower urinary tract symptoms; I10 Essential (primary) hypertension
CPT/HCPCS: 80053; 80061; 81001; 82043; 82570; 83036; 84153; 84154; 85025

== ENCOUNTER 2024-08-29 10:05 | Outpatient (REF) | payer MEDICARE, SELFPAY ==
--- OUTSIDE RECORDS SUMMARY | 2024-08-29 10:35 | XMS_ITS ---
Author Organization Pato Rosario MD Address [address] [place] [phone] Care Team Providers Care Porcelain Enameler Name Role Phone Pato Rosario Primary Care Provider Results Component Value Reference Range Notes Complete Blood Count Auto Di ff Reviewed date:06/12/2024 12:51:51 PM Interpretation: Performing Lab:, [address] [place] [phone] Notes/Report: White Blood Count 7.6 4.8-10.8 X10*3/uL [...] NRBC Abs Auto 0.000 0.0-0.012 X10*3/uL Comprehensive Levels. Panel Fa st Reviewed date:06/12/2024 12:47:20 PM Interpretation: Performing Lab:, [address] [place] [phone] Notes/Report: Sodium 142 135-145 mmol/L Potassium 4.1 [...] Panel Reviewed date:06/12/2024 12:43:28 PM Interpretation: Performing Lab:[address] [phone] Notes/Report: Triglycerides 308 <150 mg/dL Desirable Triglyceride: [...] (Free>4and<10) Reviewed date:06/12/2024 12:54:14 PM Interpretation: Performing Lab:, [address] [place] [phone] Notes/Report: PSA,Total (Free>4and<10) 4.26 0.00-4.00 ng/mL PSA methodology: Snowden Alinity i Chemiluminescent Microparticle Immunoassay (CMIA) Microalbumin, Random Reviewed date:06/12/2024 04:53:34 PM Interpretation: Performing Lab:[address] [phone] Notes/Report: Creatinine Urine 80.67 Microalbumin Urine 805.0 Microalbum/Creatinine Ratio Ur 997.8 <30 ug/mg cr Albumin/Creatinine Ratio Reference Ranges: Normal: < 30 ug/mg creatinine Microalbuminuria: 30 - 300 ug/mg creatinine Clinical Albuminuria: > 300 ug/mg creatinine Hemoglobin A1c Reviewed date:06/12/2024 12:43:17 PM Interpretation: Performing Lab:, [address] [place] [phone] Notes/Report: Hemoglobin A1c % 7.9 <6.0 % [...] average glucose, using the formula of the [id number]-Xrodaop Average Glucose study (ADAG), Diabetes Care, Vol.31,#8, Nov. 2007 UA ClnCatch+Micro w/rflx Cul t Reviewed date:06/12/2024 05:03:30 PM Interpretation: Performing Lab:, [address] [place] [phone] Notes/Report: Urine, Clean Catch Color Urine Yellow Appearance Urine Clear PH 5.0 5.0-9.0 Glucose Urine UA >=1000 Negative mg/dL Urine Blood Negative Negative Specific [place] - Urine >= 1.030 1.005-1.025 Urine Protein [...] Location Date Provider Diagnosis Pato Rosario MD [address] [place] [address] Drive [address] [place], [place] [phone] 06/12/2024 Pato Rosario Type 2 diabetes mellitus [...] Next Appt Details Provider Name:Pato Galarza ier, 09/08/2024 01:45:00 PM, [address], [address], [place], [place], [phone], Provider Name:Pato Galarza ier, 06/16/2025 08:15:00 AM, [address], [address], [place], [place], [phone], Provider Name:Pato Sandrine Geovanni ier, 06/22/2025 01:00:00 PM, [address] [place] [address], [address], [place], [place], [phone], Progress Notes * Tee MARTE MDOB:1945 (79 yo M)Acc No.[id number]:06/12/2024 Progress Note Patient:?Tee MARTE Provider:?Pato Rosario MD :1945???Age:79 Y???Sex:Male Bennie e:06/12/2024 Address:[address] [place] [address] [phone] Subjective: * Chief Complaints: * ???1. Yearly fasting labs. * Medical History:? Objective: * Vitals:? Assessment: * Assessment: 1.?Type 2 diabetes mellitus with diabetic neuropathy - E11.40 (Primary)???2.?Thrombocytopenia - D69.6???3.?Prostatism - N40.0???4.?Hypertension, unspecified type - I10??? Plan: * Treatment: 2.?Thrombocytopenia?LAB: Complete Blood Count Auto Diff (Collection Date & Time - 06/12/2024 09:50 AM) ?LAB: Comprehensive Levels. Panel Fast (Collection Date & Time - 06/12/2024 09:50 AM) ?LAB: Lipid Panel (Collection Date & Time - 06/12/2024 09:50 AM) ?LAB: PSA,Total (Free>4and<10) (Collection Date & Time - 06/12/2024 09:50 AM) ?LAB: Microalbumin, Random (Collection Date & Time - 06/12/2024 09:50 AM) ?LAB: Hemoglobin A1c (Collection Date & Time - 06/12/2024 09:50 AM) ?LAB: UA ClnCatch+Micro w/rflx Cult (Collection Date & Time - 06/12/2024 09:50 AM) 3.?Prostatism?LAB: Complete Blood Count Auto Diff (Collection Date & Time - 06/12/2024 09:50 AM) ?LAB: Comprehensive Levels. Panel Fast (Collection Date & Time 06/12/2024 09:50 AM) ?LAB: Lipid Panel (Collection Date & Time 06/12/2024 09:50 AM) ?LAB: PSA,Total (Free>4and<10) (Collection Date & Time - 06/12/2024 09:50 AM) ?LAB: Microalbumin, Random (Collection Date & Time 06/12/2024 09:50 AM) ?LAB: Hemoglobin A1c (Collection Date & Time 06/12/2024 09:50 AM) ?LAB: UA ClnCatch+Micro w/rflx Cult (Collection Date & Time 06/12/2024 09:50 AM) 4.?Hypertension, unspecified type?LAB: Complete Blood Count Auto Diff (Collection Date & Time - 06/12/2024 09:50 AM) ?LAB: Comprehensive Levels. Panel Fast (Collection Date & Time 06/12/2024 09:50 AM) ?LAB: Lipid Panel (Collection Date & Time - 06/12/2024 09:50 AM) ?LAB: PSA,Total (Free>4and<10) (Collection Date & Time - 06/12/2024 09:50 AM) ?LAB: Microalbumin, Random (Collection Date & Time - 06/12/2024 09:50 AM) ?LAB: Hemoglobin A1c (Collection Date & Time - 06/12/2024 09:50 AM) ?LAB: UA ClnCatch+Micro w/rflx Cult (Collection Date & Time - 06/12/2024 09:50 AM) * Procedure Codes:?85506 VENIP UNCT, ROUTINE* * * The named appointment provid er may or may not be the originator of this progress note, and it is not deemed complete until electronically signed by the appointment provider. Sign off status: Pending * Provider:?Pato Rosario MD Date:?0 06/12/2024 Generated for Magnus serrano/Magda/Daquanitting on:?08/29/2024 10:35 AM EDT
--- OUTSIDE RECORDS SUMMARY | 2024-08-29 10:35 | XMS_ITS | Patient Health Record ---
Author Organization Pato Rosario MD Address [address] [place], [place] [id number] Care Team Providers Care Machine Bender Name Role Phone Pato Rosario Primary Care Provider Allergies No Known Allergies Results Component Value Reference Range Notes Liver Panel Reviewed date:12/10/2023 01:32:27 PM Interpretation: Performing Lab:[facility], [address] [place] [phone] Notes/Report: Bilirubin Total 0.7 0.0-1.0 mg/dL Bilirubin Direct 0.2 0.0-0.5 mg/dL Aspartate Amino Transferase 25 5-37 U/L Alanine Aminotransferase 31 0-40 U/L Total Protein 6.8 6.5-8.0 g/dL Albumin Level 4.0 3.5-5.0 g/dL Alkaline Phosphatase 86 39-117 U/L Glucose Fasting Reviewed date:12/10/2023 01:32:19 PM Interpretation: Performing Lab:[facility], [address] [place] [phone] Notes/Report: Glucose Fasting 183 60-99 mg/dL A fasting glucose of 126 mg/dl or greater on more than one occasion is considered diagnostic of diabetes. Lipid Panel with Reflex Reviewed date:12/10/2023 01:32:10 PM Interpretation: Performing Lab:[facility], [address] [place] [phone] Notes/Report: Triglycerides 406 <150 mg/dL Desirable Triglyceride: [...] A1c Reviewed date:12/10/2023 12:33:41 PM Interpretation: Performing Lab:[facility], [address] [place] [phone] Notes/Report: Hemoglobin A1c % 7.7 <6.0 % [...] average glucose, using the formula of the [id number]-Pfrzpkx Average Glucose study (ADAG), Diabetes Care, Vol.31,#8, 2007 Complete Blood Count Auto Di ff Reviewed date:06/12/2024 12:51:51 PM Interpretation: Performing Lab:[facility], [address] [place] [phone] Notes/Report: White Blood Count 7.6 4.8-10.8 X10*3/uL [...] NRBC Abs Auto 0.000 0.0-0.012 X10*3/uL Comprehensive Delia. Panel Fa st Reviewed date:06/12/2024 12:47:20 PM Interpretation: Performing Lab:[facility], [address] [place] [phone] Notes/Report: Sodium 142 135-145 mmol/L Potassium 4.1 [...] Panel Reviewed date:06/12/2024 12:43:28 PM Interpretation: Performing Lab:[facility], [address] [place] [phone] Notes/Report: Triglycerides 308 <150 mg/dL Desirable Triglyceride: [...] (Free>4and<10) Reviewed date:06/12/2024 12:54:14 PM Interpretation: Performing Lab:[facility], [address] [place] [phone] Notes/Report: PSA,Total (Free>4and<10) 4.26 0.00-4.00 ng/mL PSA methodology: Snowden Alinity i Chemiluminescent Microparticle Immunoassay (CMIA) Microalbumin, Random Reviewed date:06/12/2024 04:53:34 PM Interpretation: Performing Lab:[facility], [address] [place] [phone] Notes/Report: Creatinine Urine 80.67 Microalbumin Urine 805.0 Microalbum/Creatinine Ratio Ur 997.8 <30 ug/mg cr Albumin/Creatinine Ratio Reference Ranges: Normal: < 30 ug/mg creatinine Microalbuminuria: 30 - 300 ug/mg creatinine Clinical Albuminuria: > 300 ug/mg creatinine Hemoglobin A1c Reviewed date:06/12/2024 12:43:17 PM Interpretation: Performing Lab:[address] [phone] Notes/Report: Hemoglobin A1c % 7.9 <6.0 % [...] average glucose, using the formula of the [id number]-Rgxpxwt Average Glucose study (ADAG), Diabetes Care, Vol.31,#8, 2007 UA ClnCatch+Micro w/rflx Cul t Reviewed date:06/12/2024 05:03:30 PM Interpretation: Performing Lab:[facility], [address] [place] [phone] Notes/Report: Urine, Clean Catch Color Urine Yellow Appearance Urine Clear PH 5.0 5.0-9.0 Glucose Urine UA >=1000 Negative mg/dL Urine Blood Negative Negative Specific [place] - Urine >= 1.030 1.005-1.025 Urine Protein 100 (2+) Neg-Trace mg/dL Urine Ketones Negative Negative mg/dL Nitrite Urine Negative Negative Leukocyte Esterase Urine Negative Negative RBC Urine 0-2 0-2 /HPF WBC Urine 0-5 0-5 /HPF Squamous Epithelial Cell Urine 0-2 0-2 /HPF Bacteria Urine None Seen None Seen Hyaline Casts Urine 0-2 0-2 /LPF Glucose, finger stick Reviewed date:12/17/2023 01:23:24 PM Interpretation: Performing Lab: Notes/Report: Value 217 SARS-CoV2/FLU/RSV Reviewed date:04/28/2024 12:46:42 PM Interpretation: Performing Lab:[address] [phone] Notes/Report: Influenza A PCR NEGATIVE Negative Influenza [...] by authorized laboratories. Testing performed on the [employer] GeneXpert utilizing real-time RT-PCR. All SARS CoV2 and positive influenza A/B results are reported to [facility]. Angel Trujillo Reviewed date:12/10/2023 10:59:55 AM Interpretation: Performing Lab:[address] [phone] Notes/Report: Angel Trujillo See Note Specimen held untested for 24 hours; Call to request Chemistry testing. Basic Metabolic Panel Reviewed date:04/17/2024 04:48:46 PM Interpretation: Performing Lab:[address] [phone] Notes/Report: Sodium 140 135-145 mmol/L Potassium 4.4 3.3-5.1 mmol/L Chloride 104 96-108 mmol/L Carbon Dioxide 28 22-29 mmol/L Anion Gap 12 12-20 Blood Urea Nitrogen 36 9-16 mg/dL Creatinine 1.78 0.5-1.4 mg/dL Estimated Glomerular Filt Rate 37 Chronic Kidney Disease: Estimated GFR < 60 mL/min/1.73m2 Severe Kidney Disease: Estimated GFR < 15 mL/min/1.73m2 Glucose Random 221 60-115 mg/dL Calcium 10.1 8.4-10.2 mg/dL PSA Free and Total Reviewed date:06/19/2024 02:43:09 PM Interpretation:sreekanth 06/19 psa Performing Lab:[facility], [address] [place] [phone] Notes/Report: Prostate Specific Ag Total 4.3 < OR = 4.0 ng/ mL Percent Free Prostate Spec Ag 19 >25 % (calc) PSA(ng/mL) Free PSA(%) Estimated(x) Probability of Cancer(as%) 0-2.5 (*) Approx. 1 2.6-4.0(1) 0-27(2) 24(3) 4.1-10(4) 0-10 56 11-15 28 16-20 20 21-25 16 >or =26 8 >10(+) N/A >50 References:(1)Lori et al.:Urology 60: 469-474 (2001) (2)Lori et al.:J.Urol 168: 922-925 (2001) Free PSA(%) Sensitivity(%) Specificity(%) < or = 25 85 19 < or = 30 93 9 (3)Catalona et al.:COLTEN 277: 8287-1381 (1996) (4)Catalona et al.:COLTEN 279: 8124-3632 (1997) (x)These estimates vary with age, ethnicity, family history and EDWARD results. (*)The diagnostic usefulness of % Free PSA has not been established in patients with total PSA below 2.6 ng/mL (+)In men with PSA above 10 ng/mL, prostate cancer risk is determined by total PSA alone. The Total PSA value from this assay system is standardized against the equimolar PSA standard. The test result will be approximately 20% higher when compared to the WHO-standardized Total PSA (Siemens assay). Comparison of serial PSA results should be interpreted with this fact in mind. PSA was performed using the Radha [place] Immunoassay method. Values obtained from different assay methods cannot be used interchangeably. PSA levels, regardless of value, should not be interpreted as absolute evidence of the presence or absence of disease. THIS TEST WAS PERFORMED AT: [facility] [address] [place] [phone] PILAR MARIE MD Free Prostate Spec Ag 0.8 Reason For Referral No Information Medications Medication SIG (Take, Route, Frequency, Duration) Notes Start Date End Date Status Citalopram Hydrobromide 20 MG TAKE ONE TABLET BY MOUTH EVERY DAY for 30 Active Tamsulosin HCl 0.4 MG TAKE 2 CAPSULES ON CE DAILY for 90 Active OneTouch Ultra Test - TEST 4XA DAY DIRECTED for 25 Active Nystatin 078263 UNIT/GM 1 application Externally Twice a day 06/18/2023 Active Januvia 100 MG TAKE 1 TABLET DAILY for 90 Active Tadalafil 20 MG 1 tablet Orally Once a day as needed for 30 day(s) 03/24/2021 Active metFORMIN HCl 500 MG TAKE TWO TABLETS BY MOUTH EVERY MORNING AND TAKE ONE TABLET BY MOUTH AT BEDTIME Active Aspirin 81 MG 1 tablet Orally Once a day for 30 day(s) Active Ipratropium [place] 0.06 % USE 2 SPRAYS IN EACH NOSTRIL TWO TIMES A DAY for 11 Active LORazepam 0.5 MG TAKE ONE TABLET BY MOUTH EVERY DAY NEEDED for 30 08/05/2023 Not-Taking OneTouch Ultra - TEST FOUR TIMES SYL Y DIRECTED for 25 Active Allopurinol 300 MG TAKE ONE TABLET BY MOUTH EVERY DAY for 90 Active Simvastatin 40 MG 1/2 tablet in the evening Orally Once a day Active Nitrostat 0.400 1 tablet under the tongue and allow to dissolve as needed Sublingual every 5 mins times 3 for chest pain for 5 Not-Taking Metoprolol Succinate 25 MG 1 capsule Orally Once a day Active Zithromax Z-Deric 250 MG 2 tablet on the , then 1 tablet daily for 4 days Orally Once a day for 5 day(s) 03/23/2023 Not-Taki ng Zolpidem Tartrate 5 MG TAKE ONE TABLET B Y MOUTH EVERY EVENING AT BEDTIME for 30 11/12/2023 Active Fluticasone Propionate 0.050 Milligram 2 PUFF EACH NOSTRIL DAILY Nasally Once a day for 30 Not-Taking Immunizations Vaccine Route Administration Date Status Comme nts Shingles Unknown 08/04/2011 Administered Flu Vaccine IM Intramuscular 01/01/2012 Administered PPSV23 (Pnemovax) Unknown 01/16/2000 Administered Here in the office. Prevnar 13 IM Intramuscular 06/17/2012 Administered Flu Vaccine IM Intramuscular 01/21/2013 Administered Flu Vaccine Unknown 02/04/2014 Administered [facility] [place] Flu Vaccine Unknown 02/10/2015 Administered pt recieved the vaccine at [facility] in [facility]. PPSV23 (Pnemovax) IM Intramuscular 04/05/2015 Administered Fluarix Quadrivalent IM Intramuscular 01/17/2016 Administe red Fluarix Quadrivalent IM Intramuscular 02/02/2017 Administe red TDaP IM Intramuscular 10/31/2017 Administered pt was given the vaccine at [facility] in [place]. Shingrix Unknown 10/04/2017 [facility]ered [facility] Shingrix IM Intramuscular 12/19/2017 Administered pt had the vaccine at [facility] in [place]. Influenza High Dose IM Intramuscular 02/19/2018 Administer [...] Administer ed RSV Unknown 04/02/[address] [facility] Social History Tobacco Use: Social History Observation [...] ast year? 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) Active confirmed Problem 120972115 Neuropathy (G62.9) Active confirmed Problem 03396946 Prostatism (N40.0) Active confirmed Problem 162428493 Tubular adenoma (D36.9) Active confirmed Problem 04755278 Anxiety (F41.9) Active confirmed Problem 31249034 Coronary atherosclerosis due to lipid rich plaque (I25.83) Active confirmed Problem Hypercalcemia (91666953) Hypercalcemia (E83.52) Active confirmed Problem 8967084 Primary insomnia (F51.01) Active confirmed Problem 2011851 Vasomotor rhinit is (J30.0) Active confirmed Problem 28567860008869595 Sciatica, righ t side (M54.31) Active confirmed Problem 96937600 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) Active confirmed Problem 354142362 History of kidne y stones (Z87.442) Active confirmed Problem 73210482 Obstructive slee p apnea (G47.33) Active confirmed Problem 834232934 Vasculogenic ere ctile dysfunction, unspecified vasculogenic erectile dysfunction type (N52.9) Active confirmed Problem 30219280 Dysthymia (F34.1) Active confirmed Problem 81251260 Claudication (I73.9) Active confirmed Problem 059960941 Pure hypercholesterolemia (E78.00) Active confirmed Problem 43279970 Hypoglycemia associated with diabetes (E11.649) Active confirmed Problem 26652406 Movement disorde r (G25.9) Active confirmed Problem 41149579 Acute idiopathic gout involving toe, 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) Active confirmed Problem 01381785 Hypertension, unspecified type (I10) Active confirmed Problem 433810653 Balance disorder (R26.89) Active confirmed Vital Signs Blood pressure diastolic 52 mm Hg 06/19/2024 Height 71 in 06/19/2024 Blood pressure systolic 118 mm Hg 06/19/2024 Weight 197 lbs 06/19/2024 BMI 27.47 kg/m2 06/19/2024 Encounters Encounter Location Date Provider Diagnosis Pato Rosario MD [address] [place] [id number] 12/10/2023 Pato Rosario Type 2 diabetes shyann itus with diabetic neuropathy E11.40 and Pure hypercholesterolemia E78.00 Pato Rosario MD [address] [place] [address] Drive [address] [place] [id number] 06/12/2024 Pato Rosario Type 2 diabetes shyann itus with diabetic neuropathy E11.40 ; Thrombocytopenia D69.6 ; Prostatism N40.0 and Hypertension, unspecified type I10 Pato Rosario MD [address] [place] [address] [address] [place] [id number] 09/10/2023 Pato Rosario Neuropathy G62.9 ; Movement disorder G25.9 ; Type 2 diabetes mellitus with diabetic neuropathy E11.40 and Balance disorder R26.89 Pato Rosario MD [address] [place] [id number] 12/17/2023 Pato Rosario Type 2 diabetes shyann itus with diabetic neuropathy E11.40 ; Yeast infection B37.9 ; Neuropathy G62.9 and Coronary atherosclerosis due to lipid rich plaque I25.83 Pato Rosario MD [address] [place] [id number] 04/28/2024 Pato Rosario Respiratory infectio n J98.8 Pato Rosario MD [address] [place] [id number] 06/19/2024 Pato Rosario Type 2 diabetes shyann itus with diabetic neuropathy E11.40 ; Balanitis N48.1 ; Foot drop, left foot M21.372 ; Hypertension, unspecified type I10 ; Prostatism N40.0 ; Anxiety F41.9 ; Colon cancer screening Z12.11 and Depression screening Z13.31 Assessments Encounter Date Diagnosis (ICD Code) Assessment Notes Treatment Notes Treatment Clinical Notes Section Notes 12/10/2023 Type 2 diabetes mellitus with diabetic neuropathy (ICD-10 - E11.40) 12/10/2023 Pure hypercholesterolemia (ICD-10 - E78.00) 06/12/2024 Type 2 diabetes mellitus with diabetic neuropathy (ICD-10 - E11.40) 09/10/2023 Neuropathy (ICD-10 - G62.9) order faxed to [facility] de[facility], pending diagnostic testing 09/10/2023 Movement disorder (ICD-10 - G25.9) is going to see neurologist 12/17/2023 Type 2 diabetes mellitus with diabetic neuropathy (ICD-10 - E11.40) stable, will cntinue current regiment 12/17/2023 Yeast infection (ICD -10 - B37.9) going to try going to every other day on the [facility], will continue to monitor 04/28/2024 Respiratory infectio n (ICD-10 - J98.8) PATIENT GOING TO [facility] , ORDER FAXED TO PATIENT REG, patient verbalized understanding of medication and directions for use 06/19/2024 Type 2 diabetes mellitus with diabetic neuropathy (ICD-10 - E11.40) stop the farxiga as it causes the infection 06/19/2024 Balanitis (ICD-10 - N48.1) continue with nystatin 06/12/2024 Thrombocytopenia (ICD-10 - D69.6) 12/17/2023 Neuropathy (ICD-10 - G62.9) need notes from dr guerra in [place]/ request for records will be sent 06/19/2024 Foot drop, left foot (ICD-10 - M21.372) would benefit from an AFO brace on bothe feet and to continue with his exercise 06/12/2024 Prostatism (ICD-10 - N40.0) 12/17/2023 Coronary atherosclerosis due to lipid rich plaque (ICD-10 - I25.83) stable, will continue current regiment 06/19/2024 Hypertension, unspecified type (ICD-10 - I10) 06/12/2024 Hypertension, unspecified type (ICD-10 - I10) 09/10/2023 Type 2 diabetes mellitus with diabetic neuropathy (ICD-10 - E11.40) 06/19/2024 Prostatism (ICD-10 - N40.0) 09/10/2023 Balance disorder (ICD-10 - R26.89) 06/19/2024 Anxiety (ICD-10 - F41.9) 06/19/2024 Colon cancer screeni ng (ICD-10 - Z12.11) 06/19/2024 Depression screening (ICD-10 - Z13.31) Plan Of Treatment Pending Test Test Name Order Date Electrocardiogram (EKG) 05/04/2016 Electrocardiogram (EKG) 05/30/2019 MRI BRAIN NO CONTRAST 04/20/2023 EMG 09/10/2023 US arterial duplex LE BI 08/03/2022 US arterial duplex UE BI 07/28/2022 Next Appt Details Provider Name:Pato briones, 09/08/2024 01:45:00 PM, [address] [place] [address], [address], [phone], Provider Name:Pato briones, 06/16/2025 08:15:00 AM, [address] [place] [address], [place] [address], [place], [place], [phone], Provider Name:Pato Galarza anselmo, 06/22/2025 01:00:00 PM, [address], [address], [place], [phone], Insurance Providers Payer Name Payer Address Payer Phone Subscriber Number Group Number Insured Name Patient Relationship to Insured Coverage Start Date Coverage End Date MEDICARE NHIC [place] [address] [place] [address] [id number] Tee Marte Self - patient is the insured MED[employer] BC[employer] OF [place] [facility] [facility] [id number] [place] [address] [id number] Tee Marte Self - patient is the insured Medical (General) History Medical History History ICD Code myocardial infarction thrombocytopenia diabetes mellitus colonoscopy done 01/15/04, 20/12, 01/08/13 - due in 5 years; colonoscopy done 07/18/17 w/Dr. Grijalva Elevated PSA ejection fraction 45% 2021
--- OUTSIDE RECORDS SUMMARY | 2024-08-29 10:35 | XMS_ITS ---
Author Organization Pato Rosario MD Address [address] [place] [phone] Care Team Providers Care Sulfonator Operator Name Role Phone Marlene Pato Primary Care Provider Allergies No Known Allergies Results Component Value Reference Range Notes SARS-CoV2/FLU/RSV Reviewed date:04/28/2024 12:46:42 PM Interpretation: Performing Lab:[facility], [address] [place] [id number] Notes/Report: Influenza A PCR NEGATIVE Negative Influenza [...] by authorized laboratories. Testing performed on the [employer] GeneXpert utilizing real-time RT-PCR. All SARS CoV2 and positive influenza A/B results are reported to [facility]. REASON FOR VISIT COUGHING, CONGESTED, /o fatigue, productive cough, congestion, headache sore throat, x 4days will test for Covid before Telehealth, Video [phone] Medications Medication SIG (Take, Route, Frequency, Duration) [...] MOUTH EVERY DAY for 30 Active Nystatin 377727 UNIT/GM 1 application Externally Twice a day 06/18/2023 Active Zolpidem Tartrate 5 MG TAKE ONE TABLET B Y MOUTH EVERY EVENING AT BEDTIME for 30 11/12/2023 Active Tamsulosin HCl 0.4 MG TAKE 2 CAPSULES ON CE DAILY for 90 Active Ipratropium [place] 0.06 % USE 2 SPRAYS IN EACH [...] Location Date Provider Diagnosis Pato Rosario MD [address] [place] [address] [place] [phone] 04/28/2024 Pato Rosario Respiratory infection J98.8 Assessments Encounter Date Diagnosis (ICD Code) Assessment Notes Treatment Notes Treatment Clinical Notes Section Notes 04/28/2024 Respiratory infection (ICD-10 - J98.8) PATIENT GOING TO [facility] , ORDER FAXED TO PATIENT REG, patient verbalized understanding of medication and directions for use Plan Of Treatment Medication Medication Name Sig Start Date Stop Date Notes Amoxicillin-Pot Clavulanate 875-125 MG 1 tablet Orally every 12 hrs for 10 days 04/28/2024 Treatment Notes Assessment Notes Respiratory infection PATIENT GOING TO [facility] , ORDER FAXED TO PATIENT REG, patient verbalized understanding of medication and directions for use Next Appt Details Provider Name:Pato briones, 09/08/2024 01:45:00 PM, [address] [place] [address], [address], [phone], Provider Name:Pato briones, 06/16/2025 08:15:00 AM, [address] [place] [address], [address], [phone], Provider Name:Pato briones, 06/22/2025 01:00:00 PM, [address] [place] [address], [address], [phone], Progress Notes * Tee MARTE MDOB:1945 (78 yo M)Acc No.[id number]:04/28/2024 Patient:?Tee Marte Provider:?Pato Rosario MD :1945???Age:78 Y???Sex:Male Bennie e:04/28/2024 Address:[address] [place] [address], [place] , [id number] Subjective: * Chief Complaints: * ???COUGHING, CONGESTED/o fat igue, productive cough, congestion, headache sore throat, x 4days will test for Covid before TelehealthVideo [phone] * HPI: ???Symptom(s):?Telehealth?Location of provider rendering services:?10 [...] Sprinkle 1 capsule Orally Once a dayIpratropium Huson 0.06 % Solution USE 2 SPRAYS IN [...] MG Tablet TAKE 1 TABLET DAILY Nystatin 556672 UNIT/GM Cream 1 application Externally Twice a [...] 1 capsule Orally Once a dayTaking Ipratropium [place] 0.06 % Solution USE 2 SPRAYS IN [...] Tablet TAKE 1 TABLET DAILY Taking Nystatin 682699 UNIT/GM Cream 1 application Externally Twice a [...] Rosario MD Date:?0 04/28/2024 Generated for Magnus serrano/Magda/Zachary on:?08/29/2024 10:35 AM EDT History and Physical Notes * HPI (History of Present Illness) Category Sub-Category Detail Notes Category Not es Symptom(s) Telehealth Location of [facility] ider rendering services:: [address], [...]
--- OUTSIDE RECORDS SUMMARY | 2024-08-29 10:35 | XMS_ITS ---
Author Organization Pato Rosario MD Address [address] [place] [phone] Care Team Providers Care Laborer Ammunition Assembly Name Role Phone Pato Rosario Primary Care [...] Once a day for 30 Not-Taking Nystatin 861901 UNIT/GM 1 application Externally Twice a day [...] a day for 30 day(s) Active Ipratropium [place] 0.06 % USE 2 SPRAYS IN EACH [...] Location Date Provider Diagnosis Pato Rosario MD [address] [place] [address] [place] [phone] 06/19/2024 Pato Rosario Type 2 diabetes mellitus [...] Up: 3 Months, Reason: Provider Name:Pato briones, 09/08/2024 01:45:00 PM, [address] [place] [address], [address], [place], [place], [phone], Provider Name:Pato briones, 06/16/2025 08:15:00 AM, [address] [place] [address], [address], [place], [place], [phone], Provider Name:Pato Galarza ier, 06/22/2025 01:00:00 PM, [address], [address], [place], [phone], Progress Notes * Tee MARTE MDOB:1945 (79 yo M)Acc No.[id number]:06/19/2024 Patient:?MARTE Tee Burt Provider:?Pato Rosario MD :1945???Age:79 Y???Sex:Male Bennie e:06/19/2024 Address:[address] [place] [address] , [place] , [id number] Subjective: * Chief Complaints: * ???Review labsCBACK PSA * HPI: ???Depression Screening:?PHQ-9?Little interest or pleasure in doing things?Not at all,?Feeling down, depressed, or hopeless?Not at all,?Trouble falling or staying asleep, or sleeping too much?Not at all,?Feeling tired or having little energy?Not at all,?Poor appetite or overeating?Not at all,?Feeling bad about yourself or that you are a failure, or have let yourself or your family down?Not at all,?Trouble concentrating on things, such as reading the newspaper or watching television?Not at all,?Moving or speaking so slowly that other people could have noticed; or the opposite, being so fidgety or restless that you have been moving around a lot more than usual?Not at all,?Thoughts that you would be better off or of hurting yourself in some way?Not at all,?Total Score?0.?Interpretation and Intervention?Depression Screening Findings?Negative,?Follow-Up for Depression?: review of PHQ-9 found negative result, no follow-up needed.?Communication Needs:?Communication Needs?Does the patient have a hearing impairment?No,?Does the patient have a vision impairment??Yes,?If yes, what is the vision impairment??Glasses,?Does the patient have a cognition impairment??No.?Fall Risk:?History?Have you had any falls with injury in the past year??No,?Have you had two or more falls in the past year??No.?SDOH Questions:?SDOH Questions?In the past year have you been worried about losing housing??No,?In the past year have you or any family members you live with been unable to get any of the following when it was really needed? Check all that apply:?None.?Symptom(s):?patient is a 79 yo male here for review of recent labs and followhaving trouble with walking. had been throwing up. for 4 days.. no diarrhea. going to therapy?up of chronic issues. * ROS:?General/Constitutional:?Patient denies?fatigue, headache.?Change in appetite?denies.?Chills?denies.?Fever?denies.?Ophthalmologic:?Blurred vision?denies.?Discharge?denies.?Pain?denies.?ENT:?Patient denies?decreased sense of smell, any loss of taste, sore throat.?Decreased hearing?denies.?Sore throat?denies.?Swollen glands?denies.?Endocrine:?Cold intolerance?denies.?Excessive thirst?denies.?Heat intolerance?denies.?Weight loss?denies.?Respiratory:?Cough?denies.?Shortness of breath at rest?denies.?Shortness of breath with exertion?denies.?Wheezing?denies.?Cardiovascular:?Chest pain at rest?denies.?Chest pain with exertion?denies.?Irregular heartbeat?denies.?Shortness of breath?denies.?Gastrointestinal:?Abdominal pain?denies.?Change in bowel habits?denies.?Diarrhea?denies.?Nausea?denies.?Rectal bleeding?denies.?Vomiting?denies .?Genitourinary:?Blood in urine?denies.?Difficulty urinating?denies.?Frequent urination?denies.?Musculoskeletal:?Patient denies?muscle aches.?Painful joints?denies.?Weakness?denies.?Peripheral Vascular:?Patient denies?red and blue toes.?Skin:?Dry skin?denies.?Itching?denies.?Denies?Mole(s),? changes in moles, new moles or any lesions of concern.?Denies?Photosensitivity.?Rash?denies.?Neurologic:?Dizziness?denies.?Fainting?denies.?Headache?denies.? * Medical History:? * Surgical History:? * Hospitalization/Major Diagno stic Procedure:? * Family History:?Father: dece ased 83 yrs, CVA, family history unknown .?Mother: 93 yrs, alzheimer, diagnosed with Alzheimer disease.?2 daughter(s) . .? 1 brother at 2 years old Pneumonia father- cva mother - alzheimer's, Denies mental health/substance abuse family history, Denies mental health/substance abuse family history, Denies mental health/substance abuse family history. * Social History:?Tobacco Use:?Tobacco Use/Smoking?Patient is a?former smoker,?How long has it been since you last smoked??> 10 years,?Additional Findings: Tobacco Non-User?Former smoker, currently using no form of tobacco.?Drugs/Alcohol:?Alcohol Screen?Did you have a drink containing alcohol in the past year??No,?Points?0,?Interpretation?Negative.?Miscellaneous:?Caffeine: yes, frequency:, 1-2 cups per day. Children: yes. Exercise: no. Home smoke detector use: yes. Housing: owning. Living with: spouse. Marital status: . Occupation: retired. Pets: none. Travel outside of the [place]: no. * Medications:?TakingAspirin 8 1 MG Tablet Chewable 1 tablet Orally Once a day OneTouch Ultra Test - Strip TEST 4XA DAY DIRECTED Tadalafil 20 MG Tablet 1 tablet Orally Once a day as needed OneTouch Ultra - Strip TEST FOUR TIMES DAILY DIRECTED Metoprolol Succinate 25 MG Capsule ER 24 Hour Sprinkle 1 capsule Orally Once a day Ipratropium [place] 0.06 % Solution USE 2 SPRAYS IN [...] MG Tablet TAKE 1 TABLET DAILY Nystatin 031315 UNIT/GM Cream 1 application Externally Twice a [...] capsule Orally Once a day Taking Ipratropium [place] 0.06 % Solution USE 2 SPRAYS IN [...] Tablet TAKE 1 TABLET DAILY Taking Nystatin 564816 UNIT/GM Cream 1 application Externally Twice a [...] 5 mins times 3 for chest pain DiscontinuedAmoxicillin- Pot Clavulanate 875-125 MG Tablet 1 tablet Orally every 12 hrs Medication List reviewed and reconciled with the patientDiscontinued Amoxicillin-Pot Clavulanate 875-125 MG Tablet 1 tablet Orally every 12 hrs Medication List reviewed and reconciled with the patient * Allergies:?N.K.D.A.yes[Aller adria Verified] Objective: * Vitals:?Ht: 71, Wt: 197, BMI :27.47, BP:118/52, Wt-k.36. * ???Past Orders: ???Lab:Complete Blood Count Auto Diff (Order Date - 06/12/2024) (Collection Date & Time - 06/12/2024 09:50 AM) ? Value Reference Range ?White Blood Count 7.6 4. 8-10.8 - X10*3/uL ?Red Blood Count 4.84 4.60 -5.80 - X10*6/uL ?Hemoglobin 14.6 14.0-18.0 - g/dl ?Hematocrit 42.4 42.0-52.0 - % ?Mean Corpuscular Volume 87.6 80.0-98.0 - fL ?Mean Corpuscular Hemoglobin 30.2 27.0-33.0 - pg ?Mean Corpuscular HGB Conc 34.4 31.0-36.0 - g/dl ?Red Cell Distribution Width 13.5 11.0-16.0 - % ?Platelet Count 107 L 160-4 00 - X10*3/uL ?Mean Platelet Volume 11.3 9.4-12.4 - fL ?Neutrophils Percent Auto 58.6 45-73 - % ?Imm Gran Pct Auto 0.5 H 0. 0-0.4 - % ?Lymphocytes Percent Auto 24.7 20-40 - % ?Monocytes Percent Auto 9.4 2-11 - % ?Eosinophils Percent Auto 5.9 H 0-4 - % ?Basophils Percent Auto 0.9 0-2 - % ?NRBC Pct Auto 0.0 0.0-0. 2 - /100WBC ?Neutrophils Absolute Auto 4.4 2.0-8.3 - x10*3/uL ?Imm Gran Abs Auto 0.04 H 0. 00-0.03 - X10*3/uL ?Lymphocytes Absolute Auto 1.9 1.2-4.9 - X10*3/uL ?Monocytes Absolute Auto 0.7 0.1-1.2 - X10*3/uL ?Eosinophils Absolute Auto 0.5 H 0.0-0.4 - X10*3/uL ?Basophils Absolute Auto 0.1 0.0-0.2 - X10*3/uL ?NRBC Abs Auto 0.000 0.0-0. 012 - X10*3/uL ???Lab: ClnCatch+Micro w/r flx Cult (Order Date - 06/12/2024) (Collection Date & Time - 06/12/2024 09:50 AM) ? Value Reference Range ?Color Urine Yellow - ?Appearance Urine Clear - ?PH 5.0 5.0-9.0 - ?Glucose Urine UA >=1000 A Neg ative - mg/dL ?Urine Blood Negative Negative - ?Specific [place] - Urine >= 1.030 H 1.005-1.025 - ?Urine Protein 100 (2+) A Neg-Tr gail - mg/dL ?Urine Ketones Negative Negati ve - mg/dL ?Nitrite Urine Negative Negati ve - ?Leukocyte Esterase Urine Negative Negative - ?RBC Urine 0-2 0-2 - /HPF ?WBC Urine 0-5 0-5 - /HPF ?Squamous Epithelial Cell Urine 0-2 0-2 - /HPF ?Bacteria Urine None Seen None Seen - ?Hyaline Casts Urine 0-2 0-2 - /LPF ???Lab:Comprehensive [place]. P janelle Fast (Order Date - 06/12/2024) (Collection Date & Time - 06/12/2024 09:50 AM) ? Value Reference Range ?Sodium 142 135-145 - mmo l/L ?Bilirubin Total 0.8 0.0- 1.0 - mg/dL ?Aspartate Amino Transferase 37 5-37 - U/L ?Alanine Aminotransferase 47 H 0-40 - U/L ?Total Protein 7.1 6.5-8. 0 - g/dL ?Albumin Level 4.0 3.5-5. 0 - g/dL ?Alkaline Phosphatase 83 39-117 - U/L ?Potassium 4.1 3.3-5.1 - mmol/L ?Chloride 107 96-108 - mm ol/L ?Carbon Dioxide 27 22-29 - mmol/L ?Anion Gap 12 12-20 - ?Blood Urea Nitrogen 31 H 9-16 - mg/dL ?Creatinine 1.47 H 0.5-1.4 - mg/dL ?Estimated Glomerular Filt Rate 46 - ?Glucose Fasting 136 H 60-9 9 - mg/dL ?Calcium 9.8 8.4-10.2 - m g/dL ???Lab:Lipid Panel (Order Da 06/12/2024) (Collection Date & Time - 06/12/2024 09:50 AM) ? Value Reference Range ?Triglycerides 308 H <150 - mg/dL ?Cholesterol 130 <200 - m g/dL ?LDL Cholesterol Calculated 38 <100 - mg/dL ?HDL Cholesterol 31 L >40 - mg/dL ???Lab:PSA,Total (Free>4and< 10) (Order Date 06/12/2024) (Collection Date & Time - 06/12/2024 09:50 AM) ? Value Reference Range ?PSA,Total (Free>4and<10) 4.26 H 0.00-4.00 - ng/mL ???Lab:Microalbumin, Random (Order 06/12/2024) (Collection Date & Time - 06/12/2024 09:50 AM) ? Value Reference Range ?Creatinine Urine 80.67 - m g/dL ?Microalbumin Urine 805.0 - mg/L ?Microalbum Creatinine Ratio Ur 997.8 H <30 - ug/mg cr ???Lab:Hemoglobin A1c (Order Date - 06/12/2024) (Collection Date & Time - 06/12/2024 09:50 AM) ? Value Reference Range ?Hemoglobin A1c % 7.9 H <6. 0 - % ?Estimated Average Glucose 180 - mg/dL * Examination: ???General Examination: ?GENERAL APPEARANCE:?well developed, well nourished, in no acute distress.?HEAD:?normocephalic, atraumatic.?EYES:?pupils equal, round, reactive to light and accommodation, sclera non-icteric.?EARS:?normal.?ORAL CAVITY:?mucosa moist.?THROAT:?clear.?NECK/THYROID:?neck supple, full range of motion, no cervical lymphadenopathy, no bruits.?SKIN:?warm and dry, no suspicious lesions.?HEART:?regular rate and rhythm, S1, S2 normal, no murmurs.?LUNGS:?clear to auscultation bilaterally.?ABDOMEN:?soft, nontender, nondistended, bowel sounds present, normal, no organomegaly , no masses palpable.?RECTAL EXAM:?normal tone, no external hemorrhoids, no masses palpable, prostate normal, stool guaiac negative.?MALE GENITOURINARY:?with balanitis at present?.?EXTREMITIES:?no clubbing, cyanosis, or edema.?NEUROLOGIC:?nonfocal, motor strength normal upper and lower extremities, sensory exam intact has a foot drop both sides.?PODIATRIC:?normal pinprick, diminished pulse and normal light touch.?FOOT EXAM:?.? Assessment: * Assessment: 1.?Type 2 diabetes mellitus with diabetic neuropathy - E11.40 (Primary)???2.?Balanitis - N48.1???3.?Foot drop, left foot - M21.372???4.?Hypertension, unspecified type - I10???5.?Prostatism - N40.0???6.?Anxiety - F41.9???7.?Colon cancer screening - Z12.11???8.?Depression screening - Z13.31??? Plan: * Treatment: 2.?Balanitis? Stop Dapagliflozin Propanediol Tablet, 10 MG, TAKE 1 TABLET DAILY.?? Notes: continue with nystatin?? 3.?Foot drop, left foot? Clinical Notes: would benefit from an AFO brace on bothe feet and to continue with his exercise?? 4.?Hypertension, unspecified type? Continue Metoprolol Succinate Capsule ER 24 Hour Sprinkle, 25 MG, 1 capsule, Orally, Once a day;?Continue Tamsulosin HCl Capsule, 0.4 MG, TAKE 2 CAPSULES ONCE DAILY.?? 5.?Anxiety? Continue Citalopram Hydrobromide Tablet, 20 MG, TAKE ONE TABLET BY MOUTH EVERY DAY.?? * Procedure Codes:?G2211 Compl ex e/m visit add on * Preventive Medicine:? ??Diabetes Care Plan:?Patient Lifestyle Goals?Needs to maintain diet control.?Treatment Goals?A1C< 7.?Barriers ?Needs better diet control.?Self- Managment Plan?Increase light exercise to 3 times a week for 30 minutes.?Expected Outcome?maintaining stable blood sugar levels within a target range.? * Follow Up:?3 Months * * Sign off status: Completed true * Provider:?Pato Rosario MD Date:?0 06/19/2024 Generated for Magnus serrano/Magda/Daquanitting on:?08/29/2024 10:34 AM EDT History and Physical Notes * [...] patient have a vision impairmen t?: Yes ?If yes, what is the vision impairment?: Glasses [...]
--- OUTSIDE RECORDS SUMMARY | 2024-08-29 10:36 | XMS_ITS | Clinical Summary ---
Author Organization [facility] Address [address] [place] [address] [place] [phone] Phone Care Team Providers Care Duplicate Maker Name Role Phone Pato Rosario MD Primary Care Provider [phone] Allergies No known active allergies Medications fish [...] Due Date Last Done Comments Pneumococcal Vaccine: 50+ Ye ars (2 of 2 - PCV) 02/19/2015 02/19/2014 Diabetes: Hemoglobin A1C 05/24/2020 Diabetes: Ophthalmology Exam 05/24/2020 Diabetes: Pedal Pulse Checked 05/24/2020 Diabetes: Sensory Foot Exam 05/24/2020 Diabetes: Visual Foot Exam 05/24/2020 Influenza Vaccine (Season Ended) 2024 Pneumococcal Vaccine: Peds ( 0 to 5 Years) and At-Risk Patients (6 to 49 Years) Discontinued 02/19/2014 Hepatitis B Vaccine Aged Out No longe r eligible based on patient's age to complete this topic Insurance [facility] Medicare [facility] Medicare Care Teams Duplicate Maker Relationship Specialty Start Date End Date Pato Rosario MD [id number] [place] PCP - General 05/03/20
[2024-08-29 12:04] LABS: Anion Gap 11 (12-20); Blood Urea Nitrogen 33 mg/dL (9-16); Calcium 9.9 mg/dL (8.4-10.2); Carbon Dioxide 27 mmol/L (22-29); Chloride 102 mmol/L (96-108); Estimated Glomerular Filt Rate 39; Glucose Random 287 mg/dL (60-115); Potassium 4.3 mmol/L (3.3-5.1); Sodium 136 mmol/L (135-145)
[2024-08-29 12:30] LABS: Parathyroid Hormone Intact 61.1 pg/mL (8.7-77.1)
== END 2024-08-29 10:06 | disposition home or self-care (01) ==
LOC: HO.10HDL 10:05
PROVIDERS: Visit Provider Internal Medicine Hypertension Specialist
DX: N18.9 Chronic kidney disease, unspecified (principal)
CPT/HCPCS: 36415; 80048; 83970

== ENCOUNTER 2024-09-01 11:31 | Outpatient (AMB) | payer MEDICARE, SELFPAY ==
--- NOTE | 2024-09-01 11:35 | HO.NEPHOV_ITS ---
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 Required: No Accompanied by: Self / Same As Patient Allergies No Known Allergies Allergy (Unknown, Verified 09/01/24 11:39) Medication List - Last Reconciled 09/01/24 by Donald Joy MD allopurinol 300 mg PO DAILY aspirin 81 mg PO DAILY citalopram 20 mg PO DAILY metformin 500 mg PO TID metoprolol succinate ER 25 mg PO DAILY omega 6-vto-uou-fish oil 100-160-1,000 mg (Fish Oil) 3000 mg daily simvastatin 20 mg PO BEDTIME sitagliptin phosphate (Januvia) 100 mg PO DAILY tamsulosin mg PO DAILY zolpidem 5 mg PO BEDTIME PRN HPI Comments Details: 79-year-old man with a showed nephrolithiasis and chronic kidney disease. He is here for semiannual follow-up. He has been having unsteady gait. Seen by Neurology underwent EMG and nerve conduction study He continues to take Tums. 05/20/24 Here for follow up ;No further renal stones.Has difficulty with DM ;Currently less active 09/01/24 DEveloped Balanitis- Farxiga was stopped. 3 months ago Blood sugar is still elevated c/o Back and leg pain PFSH Social History Alcohol intake: current Patient Tobacco Use Status: Former Tobacco user Physical Exam Vital Signs: Last Vital Signs Pulse 68 09/01/24 11:36 BP 126/62 09/01/24 11:36 Pulse Ox 97 09/01/24 11:36 Oxygen Delivery Method Room Air 09/01/24 11:36 BMI result Body Mass Index 28.4 Const General: comfortable; No acute distress Orientation/consciousness: patient oriented x3 Eyes General: appearance normal, both eyes and all related structures Visual Sloan: normal visual sloan by confrontation Neck Neck: Yes supple Resp Effort & Inspection: normal respiratory effort and respiratory effort not decreased Auscultation: clear to auscultation bilaterally Cardio Palpation: no palpable S3 Heart sounds: no rubs GI Inspection: Yes normal to inspection Palpation (GI): Soft to palpation Percussion: Yes normal to percussion Auscultation: normal bowel sounds General: Yes no CVA tenderness Back/Spine/Pelvis Back: no CVA tenderness Skin General skin exam: no petechiae and no purpura Neuro General: patient oriented x3 and no focal motor deficits Motor exam (neuro): no asterixis Extrem General: No clubbing and No edema Results Reviewed Nephrology Results: Hgb 14.6 g/dl (14.0-18.0) 06/12/24 WBC 7.6 X10*3/uL (4.8-10.8) 06/12/24 Plt Count 107 X10*3/uL (160-400) L 06/12/24 Sodium 136 mmol/L (135-145) 08/29/24 Potassium 4.3 mmol/L (3.3-5.1) 08/29/24 Chloride 102 mmol/L (96-108) 08/29/24 Carbon Dioxide 27 mmol/L (22-29) 08/29/24 BUN 33 mg/dL (9-16) H 08/29/24 Creatinine 1.72 mg/dL (0.5-1.4) H 08/29/24 Calcium 9.9 mg/dL (8.4-10.2) 08/29/24 Phosphorus 2.4 mg/dL (2.7-4.5) L 10/03/23 PTH Intact 61.1 pg/mL (8.7-77.1) 08/29/24 Urine Protein 100 (2+) mg/dL (Neg-Trace) H 06/12/24 Urine Creatinine 80.67 mg/dL 06/12/24 Assessment & Plan Assessment & Plan (1) Nephrolithiasis: Comment: Still has renal stones but asymptomatic Code(s): N20.0 - Calculus of kidney Category: Medical Plan: Needs to stay on low-sodium diet Increase fluid intake to maintain a urine output of 2 L per 24 hours. (2) CKD (chronic kidney disease): Comment: CKD in a setting of longstanding diabetes mellitus and nephrolithiasis. Renal function stable Code(s): N18.9 - Chronic kidney disease, unspecified Category: Medical Plan: Goal is to slow the progression of renal disease Continue to avoid nephrotoxic agents. HOld Farxiga due to balanitis (3) Hypercalcemia: Comment: Intact PTH was 45. He was consuming excessive amount of Tums. Code(s): E83.52 - Hypercalcemia Category: Medical Plan: Avoid Tums. Calcium normalized (4) Diabetes mellitus: Code(s): E11.9 - Type 2 diabetes mellitus without complications Category: Medical Plan: Goal A1c less than 7% Plan Will benefit from ACEi or ARB in view of proteinuria If SBP stays above 130, would consider adding Losartan 12.5 to 25 mg QD and titrate Bp is acceptable. No further hypotension Back pain- follow with PCP Orders: Orders Basic Metabolic Panel 6 Months N18.9 - Chronic kidney disease, unspecified, N20.0 - Calculus of kidney Parathyroid Hormone Intact 6 Months N18.9 - Chronic kidney disease, unspecified, N20.0 - Calculus of kidney Complete Blood Count no Diff 6 Months N18.9 - Chronic kidney disease, unspecified, N20.0 - Calculus of kidney Coding Level of Care Code Est Pt Level 4 (61056) Diagnoses Nephrolithiasis N20.0 CKD (chronic kidney disease) N18.9 Hypercalcemia E83.52 Diabetes mellitus E11.9
[2024-09-01 11:36] VITALS: BP 126/62; PULSE 68; O2SAT 97; BMI 28.4
--- OUTSIDE RECORDS SUMMARY | 2024-09-01 12:21 | XMS_ITS | Patient Health Record ---
Author Organization Pato Rosario MD Address [address] [place], [place] [id number] Care Team Providers Care Woodwork Salvage Inspector Name Role Phone Pato Rosario Primary Care Provider Allergies No Known Allergies Results Component Value Reference Range Notes Liver Panel Reviewed date:12/10/2023 01:32:27 PM Interpretation: Performing Lab:[facility], [address] [place] [phone] Notes/Report: Bilirubin Total 0.7 0.0-1.0 mg/dL Bilirubin Direct 0.2 0.0-0.5 mg/dL Aspartate Amino Transferase 25 5-37 U/L Alanine Aminotransferase 31 0-40 U/L Total Protein 6.8 6.5-8.0 g/dL Albumin Level 4.0 3.5-5.0 g/dL Alkaline Phosphatase 86 39-117 U/L Glucose Fasting Reviewed date:12/10/2023 01:32:19 PM Interpretation: Performing Lab:[facility], [address] [place] [phone] Notes/Report: Glucose Fasting 183 60-99 mg/dL A fasting glucose of 126 mg/dl or greater on more than one occasion is considered diagnostic of diabetes. Lipid Panel with Reflex Reviewed date:12/10/2023 01:32:10 PM Interpretation: Performing Lab:[facility], [address] [place] [phone] Notes/Report: Triglycerides 406 <150 mg/dL Desirable Triglyceride: [...] A1c Reviewed date:12/10/2023 12:33:41 PM Interpretation: Performing Lab:[facility], [address] [place] [phone] Notes/Report: Hemoglobin A1c % 7.7 <6.0 % [...] average glucose, using the formula of the O3Q-Tpvwxzy Average Glucose study (ADAG), Diabetes Care, Vol.31,#8, 2007 Complete Blood Count Auto Di ff Reviewed date:06/12/2024 12:51:51 PM Interpretation: Performing Lab:[facility], [address] [place] [phone] Notes/Report: White Blood Count 7.6 4.8-10.8 X10*3/uL [...] NRBC Abs Auto 0.000 0.0-0.012 X10*3/uL Comprehensive [place]. Panel Fa st Reviewed date:06/12/2024 12:47:20 PM Interpretation: Performing Lab:[facility], [address] [place] [phone] Notes/Report: Sodium 142 135-145 mmol/L Potassium 4.1 [...] Panel Reviewed date:06/12/2024 12:43:28 PM Interpretation: Performing Lab:[facility], [address] [place] [phone] Notes/Report: Triglycerides 308 <150 mg/dL Desirable Triglyceride: [...] (Free>4and<10) Reviewed date:06/12/2024 12:54:14 PM Interpretation: Performing Lab:[facility], [address] [place] [phone] Notes/Report: PSA,Total (Free>4and<10) 4.26 0.00-4.00 ng/mL PSA methodology: Snowden Alinity i Chemiluminescent Microparticle Immunoassay (CMIA) Microalbumin, Random Reviewed date:06/12/2024 04:53:34 PM Interpretation: Performing Lab:[facility], [address] [place] [phone] Notes/Report: Creatinine Urine 80.67 Microalbumin Urine 805.0 Microalbum/Creatinine Ratio Ur 997.8 <30 ug/mg cr Albumin/Creatinine Ratio Reference Ranges: Normal: < 30 ug/mg creatinine Microalbuminuria: 30 - 300 ug/mg creatinine Clinical Albuminuria: > 300 ug/mg creatinine Hemoglobin A1c Reviewed date:06/12/2024 12:43:17 PM Interpretation: Performing Lab:[address] [phone] Notes/Report: Hemoglobin A1c % 7.9 <6.0 % [...] average glucose, using the formula of the V6T-Qmzplqk Average Glucose study (ADAG), Diabetes Care, Vol.31,#8, 2007 UA ClnCatch+Micro w/rflx Cul t Reviewed date:06/12/2024 05:03:30 PM Interpretation: Performing Lab:[facility], [address] [place] [phone] Notes/Report: Urine, Clean Catch Color Urine Yellow Appearance Urine Clear PH 5.0 5.0-9.0 Glucose Urine UA >=1000 Negative mg/dL Urine Blood Negative Negative Specific [place] - Urine >= 1.030 1.005-1.025 Urine Protein [...] SARS-CoV2/FLU/RSV Reviewed date:04/28/2024 12:46:42 PM Interpretation: Performing Lab:[address] [phone] Notes/Report: Influenza A PCR NEGATIVE Negative Influenza [...] by authorized laboratories. Testing performed on the [employer] GeneXpert utilizing real-time RT-PCR. All SARS CoV2 and positive influenza A/B results are reported to [facility]. Angel Trujillo Reviewed date:12/10/2023 10:59:55 AM Interpretation: Performing Lab:[address] [phone] Notes/Report: Angel Trujillo See Note Specimen held untested for 24 hours; Call to request Chemistry testing. Basic Metabolic Panel Reviewed date:04/17/2024 04:48:46 PM Interpretation: Performing Lab:[address] [phone] Notes/Report: Sodium 140 135-145 mmol/L Potassium 4.4 [...] date:06/19/2024 02:43:09 PM Interpretation:sreekanth 06/19 psa Performing Lab:[facility], [address] [place] [phone] Notes/Report: Prostate Specific Ag Total 4.3 < [...] 30 93 9 (3)Catalona et al.:COLTEN 277: 4895-6092 (1996) (4)Catalona et al.:COLTEN 279: 2569-8503 (1997) (x)These estimates vary with age, ethnicity, [...] mind. PSA was performed using the Radha Veronica Immunoassay method. Values obtained from different assay methods cannot be used interchangeably. PSA levels, regardless of value, should not be interpreted as absolute evidence of the presence or absence of disease. THIS TEST WAS PERFORMED AT: [facility] [address] [place] [phone] PILAR MARIE MD Free Prostate Spec Ag [...] 4XA DAY DIRECTED for 25 Active Nystatin 744156 UNIT/GM 1 application Externally Twice a day [...] a day for 30 day(s) Active Ipratropium [place] 0.06 % USE 2 SPRAYS IN EACH [...] Administered Flu Vaccine Unknown 02/04/2014 Administered [facility] [place] Flu Vaccine Unknown 02/10/2015 Administered pt recieved the vaccine at [facility] in [facility]. PPSV23 (Pnemovax) IM Intramuscular 04/05/2015 Administered Fluarix Quadrivalent IM Intramuscular 01/17/2016 Administe red Fluarix Quadrivalent IM Intramuscular 02/02/2017 Administe red TDaP IM Intramuscular 10/31/2017 Administered pt was given the vaccine at [facility] in [place]. Shingrix Unknown 10/04/2017 Administered [facility] Shingrix IM Intramuscular 12/19/2017 Administered pt had the vaccine at [facility] in [place]. Influenza High Dose IM Intramuscular 02/19/2018 Administer [...] Administer ed RSV Unknown 04/02/[address] [facility] Social History Tobacco Use: Social History Observation [...] Problem Status W/U Status Risk Notes Problem 116239507 Thrombocytopenia (D69.6) Active confirmed Problem 29432755 Balanitis (N48.1) Active confirmed Problem 895585218 Neuropathy (G62.9) Active confirmed Problem 57991561 Prostatism (N40.0) Active confirmed Problem 012485304 Tubular adenoma (D36.9) Active confirmed Problem 48467019 Anxiety (F41.9) Active confirmed Problem 38210070 Coronary atherosclerosis due to lipid rich plaque (I25.83) Active confirmed Problem Hypercalcemia (02597336) Hypercalcemia (E83.52) Active confirmed Problem 0320368 Primary insomnia (F51.01) Active confirmed Problem 1635382 Vasomotor rhinit is (J30.0) Active confirmed Problem 26716879854392116 Sciatica, righ t side (M54.31) Active confirmed Problem 91065983 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) Active confirmed Problem 720988429 History of kidne y stones (Z87.442) Active confirmed Problem 82395806 Obstructive slee p apnea (G47.33) Active confirmed Problem 391331040 Vasculogenic ere ctile dysfunction, unspecified vasculogenic erectile dysfunction type (N52.9) Active confirmed Problem 31836702 Dysthymia (F34.1) Active confirmed Problem 47057998 Claudication (I73.9) Active confirmed Problem 922998403 Pure hypercholesterolemia (E78.00) Active confirmed Problem 61523612 Hypoglycemia associated with diabetes (E11.649) Active confirmed Problem 41629328 Movement disorde r (G25.9) Active confirmed Problem 06873844 Acute idiopathic gout involving toe, 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) Active confirmed Problem 07354514 Hypertension, unspecified type (I10) Active confirmed Problem 247400536 Balance disorder (R26.89) Active confirmed Vital Signs Blood pressure diastolic 52 mm Hg 06/19/2024 Height 71 in 06/19/2024 Blood pressure systolic 118 mm Hg 06/19/2024 Weight 197 lbs 06/19/2024 BMI 27.47 kg/m2 06/19/2024 Encounters Encounter Location Date Provider Diagnosis Pato Rosario MD [address] [place] [id number] 12/10/2023 Pato Rosario Type 2 diabetes shyann itus with diabetic neuropathy E11.40 and Pure hypercholesterolemia E78.00 Pato Rosario MD [address] [place] [address] Drive [address] [place] [id number] 06/12/2024 Pato Rosario Type 2 diabetes shyann itus with diabetic neuropathy E11.40 ; Thrombocytopenia D69.6 ; Prostatism N40.0 and Hypertension, unspecified type I10 Pato Rosario MD [address] [place] [address] Drive [address] [place] [id number] 09/10/2023 Pato Rosario Neuropathy G62.9 ; Movement disorder G25.9 ; Type 2 diabetes mellitus with diabetic neuropathy E11.40 and Balance disorder R26.89 Pato Rosario MD [address] [place] [id number] 12/17/2023 Pato Rosario Type 2 diabetes shyann itus with diabetic neuropathy E11.40 ; Yeast infection B37.9 ; Neuropathy G62.9 and Coronary atherosclerosis due to lipid rich plaque I25.83 Pato Rosario MD [address] [place] [id number] 04/28/2024 Pato Rosario Respiratory infectio n J98.8 Pato Rosario MD [address] [place] [id number] 06/19/2024 Pato Rosario Type 2 diabetes shyann [...] Neuropathy (ICD-10 - G62.9) order faxed to [facility] CS dept, pending diagnostic testing 09/10/2023 Movement disorder (ICD-10 - G25.9) is going to see neurologist 12/17/2023 Type 2 diabetes mellitus with diabetic neuropathy (ICD-10 - E11.40) stable, will cntinue current regiment 12/17/2023 Yeast infection (ICD -10 - B37.9) going to [facility], will continue to monitor 04/28/2024 Respiratory infectio n (ICD-10 - J98.8) PATIENT GOING TO [facility] , ORDER FAXED TO PATIENT REG, patient verbalized understanding of medication and directions for use 06/19/2024 Type 2 diabetes mellitus with diabetic neuropathy (ICD-10 - E11.40) stop the farxiga as it causes the infection 06/19/2024 Balanitis (ICD-10 - N48.1) continue with nystatin 06/12/2024 Thrombocytopenia (ICD-10 - D69.6) 12/17/2023 Neuropathy (ICD-10 - G62.9) need notes from dr guerra in [place]/ request for records will be sent 06/19/2024 [...] Details Provider Name:Pato briones, 09/08/2024 01:45:00 PM, [address] [place] [address], [address], [phone], Provider Name:Pato briones, 06/16/2025 08:15:00 AM, [address] [place] [address], [place] [address], [place], [place], [phone], Provider Name:Pato Galarza anselmo, 06/22/2025 01:00:00 PM, [address], [address], [place], [phone], Insurance Providers Payer Name Payer Address Payer Phone Subscriber Number Group Number Insured Name Patient Relationship to Insured Coverage Start Date Coverage End Date MEDICARE NHIC VICTOR M [address] [place] [address] [id number] Tee Marte Self - patient is the insured MEDEX BCBS OF [employer] [facility] [id number] [place] [phone] [id number] Tee Marte Self - patient is the insured Medical (General) History Medical History History ICD Code myocardial infarction thrombocytopenia diabetes mellitus colonoscopy done 01/15/04, 20/12, 01/08/13 - due in 5 years; colonoscopy done 07/18/17 w/Dr. Grijalva Elevated PSA ejection fraction 45% 2021
--- OUTSIDE RECORDS SUMMARY | 2024-09-01 12:21 | XMS_ITS ---
Author Organization Pato Rosario MD Address [address] [place] [phone] Care Team Providers Care Panel Sewer Name Role Phone Pato Rosario Primary Care Provider [phone] Allergies No Known Allergies REASON FOR VISIT [...] Once a day for 30 Not-Taking Nystatin 886363 UNIT/GM 1 application Externally Twice a day [...] a day for 30 day(s) Active Ipratropium [place] 0.06 % USE 2 SPRAYS IN EACH [...] Location Date Provider Diagnosis Pato Rosario MD [address] [place] [address] [place] [id number] 06/19/2024 Pato Rosario Type 2 diabetes mellitus [...] Reason: Provider Name:Pato briones, 09/08/2024 01:45:00 PM, [address] [place] [address], [address], [place], [place], [phone], Provider Name:Pato briones, 06/16/2025 08:15:00 AM, [address] [place] [address], [address], [place], [place], [phone], Provider Name:Pato Galarza ier, 06/22/2025 01:00:00 PM, [address], [address], [place], [phone], Progress Notes * Tee MARTE MDOB:1945 (79 yo M)Acc No.[id number]:06/19/2024 Patient:?MARTE Tee Burt Provider:?Pato Rosario MD :1945???Age:79 Y???Sex:Male Bennie e:06/19/2024 Address:[address] [place] [address] , [place] , [id number] Subjective: * Chief Complaints: * ???Review labsCBACK [...] retired. Pets: none. Travel outside of the [place]: no. * Medications:?TakingAspirin 8 1 MG Tablet Chewable 1 tablet Orally Once a day OneTouch Ultra Test - Strip TEST 4XA DAY DIRECTED Tadalafil 20 MG Tablet 1 tablet Orally Once a day as needed OneTouch Ultra - Strip TEST FOUR TIMES DAILY DIRECTED Metoprolol Succinate 25 MG Capsule ER 24 Hour Sprinkle 1 capsule Orally Once a day Ipratropium [place] 0.06 % Solution USE 2 SPRAYS IN [...] MG Tablet TAKE 1 TABLET DAILY Nystatin 164020 UNIT/GM Cream 1 application Externally Twice a [...] capsule Orally Once a day Taking Ipratropium [place] 0.06 % Solution USE 2 SPRAYS IN [...] Tablet TAKE 1 TABLET DAILY Taking Nystatin 071606 UNIT/GM Cream 1 application Externally Twice a [...] mg/dL ?Urine Blood Negative Negative - ?Specific [place] - Urine >= 1.030 H 1.005-1.025 - [...] Casts Urine 0-2 0-2 - /LPF ???Lab:[facility] [place]. P janelle Fast (Order Date - 06/12/2024) [...] MD Date:?0 06/19/2024 Generated for Magnus serrano/Magda/Daquanitting on:?09/01/2024 12:20 PM EDT History and Physical Notes * HPI [...]
--- OUTSIDE RECORDS SUMMARY | 2024-09-01 12:21 | XMS_ITS ---
Author Organization Pato Rosario MD Address [address] [place] [phone] Care Team Providers Care Electric Tripper Machine Operator Name Role Phone Marlene Pato Primary Care Provider Allergies No Known Allergies Results Component Value Reference Range Notes SARS-CoV2/FLU/RSV Reviewed date:04/28/2024 12:46:42 PM Interpretation: Performing Lab:[facility], [address] [place] [phone] Notes/Report: Influenza A PCR NEGATIVE Negative Influenza [...] by authorized laboratories. Testing performed on the [employer] GeneXpert utilizing real-time RT-PCR. All SARS CoV2 and positive influenza A/B results are reported to [facility]. REASON FOR VISIT COUGHING, CONGESTED, /o fatigue, productive cough, congestion, headache sore throat, x 4days will test for Covid before Telehealth, Video [phone] Medications Medication SIG (Take, Route, Frequency, Duration) [...] MOUTH EVERY DAY for 30 Active Nystatin 573248 UNIT/GM 1 application Externally Twice a day 06/18/2023 Active Zolpidem Tartrate 5 MG TAKE ONE TABLET B Y MOUTH EVERY EVENING AT BEDTIME for 30 11/12/2023 Active Tamsulosin HCl 0.4 MG TAKE 2 CAPSULES ON CE DAILY for 90 Active Ipratropium [place] 0.06 % USE 2 SPRAYS IN EACH [...] Location Date Provider Diagnosis Pato Rosario MD [address] [place] [address] [place] [id number] 04/28/2024 Pato Rosario Respiratory infection J98.8 Assessments Encounter Date Diagnosis (ICD Code) Assessment Notes Treatment Notes Treatment Clinical Notes Section Notes 04/28/2024 Respiratory infection (ICD-10 - J98.8) PATIENT GOING TO [facility] , ORDER FAXED TO PATIENT REG, patient verbalized understanding of medication and directions for use Plan Of Treatment Medication Medication Name Sig Start Date Stop Date Notes Amoxicillin-Pot Clavulanate 875-125 MG 1 tablet Orally every 12 hrs for 10 days 04/28/2024 Treatment Notes Assessment Notes Respiratory infection PATIENT GOING TO [facility] , ORDER FAXED TO PATIENT REG, patient verbalized understanding of medication and directions for use Next Appt Details Provider Name:Pato briones, 09/08/2024 01:45:00 PM, [address] [place] [address], [address], [phone], Provider Name:Pato briones, 06/16/2025 08:15:00 AM, [address] [place] [address], [address], [phone], Provider Name:Pato briones, 06/22/2025 01:00:00 PM, [address] [place] [address], [address], [phone], Progress Notes * Tee MARTE MDOB:1945 (78 yo M)Acc No.[id number]:04/28/2024 Patient:?Tee Marte Provider:?Pato Rosario MD :1945???Age:78 Y???Sex:Male Bennie e:04/28/2024 Address:[address] [place] [address], [place] , [id number] Subjective: * Chief Complaints: * ???COUGHING, CONGESTED/o fat igue, productive cough, congestion, headache sore throat, x 4days will test for Covid before TelehealthVideo [phone] * HPI: ???Symptom(s):?Telehealth?Location of provider rendering services:?10 [...] Sprinkle 1 capsule Orally Once a dayIpratropium [place] 0.06 % Solution USE 2 SPRAYS IN [...] MG Tablet TAKE 1 TABLET DAILY Nystatin 108117 UNIT/GM Cream 1 application Externally Twice a [...] 1 capsule Orally Once a dayTaking Ipratropium [place] 0.06 % Solution USE 2 SPRAYS IN [...] Tablet TAKE 1 TABLET DAILY Taking Nystatin 057623 UNIT/GM Cream 1 application Externally Twice a [...] MD Date:?0 04/28/2024 Generated for Magnus serrano/Magda/Zachary on:?09/01/2024 12:21 PM EDT History and Physical Notes * HPI (History of Present Illness) Category Sub-Category Detail Notes Category Not es Symptom(s) Telehealth Location [facility] ider rendering services:: [address], [address] [...]
--- OUTSIDE RECORDS SUMMARY | 2024-09-01 12:21 | XMS_ITS | Clinical Summary ---
Author Organization [facility] Address [address] [place] [address] [place] [phone] Phone Care Team Providers Care Director Decision Support Name Role Phone Pato Rosario MD Primary [...] patient's age to complete this topic Insurance [facility] Medicare [facility] Medicare Care Teams Director Decision Support Relationship Specialty Start Date End Date Pato Rosario MD [address] [place], [place] PCP - General 05/03/20
--- OUTSIDE RECORDS SUMMARY | 2024-09-01 12:21 | XMS_ITS ---
Author Organization Pato Rosario MD Address [address] [place] [phone] Care Team Providers Care Route Delivery Service Driver Name Role Phone Pato Rosario Primary Care Provider [phone] Results Component Value Reference Range Notes Complete Blood Count Auto Di ff Reviewed date:06/12/2024 12:51:51 PM Interpretation: Performing Lab:[facility], [address] [place] [phone] Notes/Report: White Blood Count 7.6 4.8-10.8 X10*3/uL [...] NRBC Abs Auto 0.000 0.0-0.012 X10*3/uL Comprehensive [place]. Panel Fa st Reviewed date:06/12/2024 12:47:20 PM Interpretation: Performing Lab:[facility], [address] [place] [phone] Notes/Report: Sodium 142 135-145 mmol/L Potassium 4.1 [...] Panel Reviewed date:06/12/2024 12:43:28 PM Interpretation: Performing Lab:[address] [phone] Notes/Report: Triglycerides 308 <150 mg/dL Desirable Triglyceride: [...] (Free>4and<10) Reviewed date:06/12/2024 12:54:14 PM Interpretation: Performing Lab:[facility], [address] [place] [phone] Notes/Report: PSA,Total (Free>4and<10) 4.26 0.00-4.00 ng/mL PSA methodology: Snowden Alinity i Chemiluminescent Microparticle Immunoassay (CMIA) Microalbumin, Random Reviewed date:06/12/2024 04:53:34 PM Interpretation: Performing Lab:[address] [address] Notes/Report: Creatinine Urine 80.67 Microalbumin Urine 805.0 Microalbum/Creatinine Ratio Ur 997.8 <30 ug/mg cr Albumin/Creatinine Ratio Reference Ranges: Normal: < 30 ug/mg creatinine Microalbuminuria: 30 - 300 ug/mg creatinine Clinical Albuminuria: > 300 ug/mg creatinine Hemoglobin A1c Reviewed date:06/12/2024 12:43:17 PM Interpretation: Performing Lab:[facility], [address] [place] [phone] Notes/Report: Hemoglobin A1c % 7.9 <6.0 % [...] average glucose, using the formula of the A8B-Ciiymda Average Glucose study (ADAG), Diabetes Care, Vol.31,#8, Nov. 2007 UA ClnCatch+Micro w/rflx Cul t Reviewed date:06/12/2024 05:03:30 PM Interpretation: Performing Lab:[facility], [address] [place] [phone] Notes/Report: Urine, Clean Catch Color Urine Yellow Appearance Urine Clear PH 5.0 5.0-9.0 Glucose Urine UA >=1000 Negative mg/dL Urine Blood Negative Negative Specific [place] - Urine >= 1.030 1.005-1.025 Urine Protein [...] Location Date Provider Diagnosis Pato Rosario MD [address] [place] [address] Drive [address] [place], [place] [phone] 06/12/2024 Pato Rosario Type 2 diabetes mellitus [...] 01:45:00 PM, [address], [address], [place], [place], [phone], Provider Name:Pato Galarza ier, 06/16/2025 08:15:00 AM, [address], [address], [place], [place], [phone], Provider Name:Pato Sandrine Geovanni ier, 06/22/2025 01:00:00 PM, [address] [place] [address], [address], [place], [place], [phone], Progress Notes * Tee MARTE MDOB:1945 (79 yo M)Acc No.[id number]:06/12/2024 Progress Note Patient:?Tee MARTE Provider:?Pato Rosario MD :1945???Age:79 Y???Sex:Male Bennie e:06/12/2024 Address:[address] [place] [address] [id number] Subjective: * Chief Complaints: * ???1. Yearly fasting labs. * Medical History:? Objective: * Vitals:? Assessment: * Assessment: 1.?Type 2 diabetes mellitus with diabetic neuropathy - E11.40 (Primary)???2.?Thrombocytopenia - D69.6???3.?Prostatism - N40.0???4.?Hypertension, unspecified type - I10??? Plan: * Treatment: 2.?Thrombocytopenia?LAB: Complete Blood Count Auto Diff (Collection Date & Time - 06/12/2024 09:50 AM) ?LAB: [facility] [place]. Panel Fast (Collection Date & Time - [...] Time - 06/12/2024 09:50 AM) ?LAB: [facility] [place]. Panel Fast (Collection Date & Time 06/12/2024 [...] Time - 06/12/2024 09:50 AM) ?LAB: [facility] [place]. Panel Fast (Collection Date & Time 06/12/2024 [...] Time - 06/12/2024 09:50 AM) * Procedure Codes:?03564 VENIP UNCT, ROUTINE* * * The named appointment provid er may or may not be the originator of this progress note, and it is not deemed complete until electronically signed by the appointment provider. Sign off status: Pending * Provider:?Pato Rosario MD Date:?0 06/12/2024 Generated for Magnus serrano/Magda/Daquanitting on:?09/01/2024 12:20 PM EDT
== END 2024-09-01 11:56 | disposition home or self-care (01) ==
LOC: HO.HKA 11:31
PROVIDERS: PCP Internal Medicine; Visit Provider Internal Medicine Hypertension Specialist
DX: N20.0 Calculus of kidney (principal); N18.9 Chronic kidney disease, unspecified; E83.52 Hypercalcemia; E11.9 Type 2 diabetes mellitus without complications
CPT/HCPCS: 99214

== ENCOUNTER → 2024-09-01 11:31 | Outpatient (BNVA) | payer MEDICARE, SELFPAY | PROVIDERS: PCP Internal Medicine; Visit Provider Internal Medicine Hypertension Specialist | DX: N20.0 Calculus of kidney (principal); E11.22 Type 2 diabetes mellitus with diabetic chronic kidney disease; N18.9 Chronic kidney disease, unspecified; E83.52 Hypercalcemia | CPT/HCPCS: 99212 ==

== ENCOUNTER 2025-02-23 12:29 | Outpatient (REF) | payer MEDICARE, SELFPAY ==
--- OUTSIDE RECORDS SUMMARY | 2023-12-17 08:30 | XMS_ITS ---
Author Organization Pato Rosario MD Address [address] [place] [phone] Care Team Providers Care Sanitation Laborer Name Role Phone Pato Rosario Primary Care Provider [phone] Allergies No Known Allergies Results Component Value Reference Range Notes Glucose, finger stick Reviewed date:12/17/2023 01:23:24 PM Interpretation: Performing Lab: Notes/Report: Value 217 REASON FOR VISIT 6 month Medications Medication SIG (Take, Route, Frequency, Duration) Notes Start Date End Date Status Nitrostat 0.400 1 tablet under the tongue and allow to dissolve as needed Sublingual every 5 mins times 3 for chest pain for 5 Not-Taking Fluticasone Propionate 0.050 Milligram 2 PUFF EACH NOSTRIL DAILY Nasally Once a day for 30 Not-Taking Zithromax Z-Deric 250 MG 2 tablet on the irs day, then 1 tablet daily for 4 days Orally Once a day for 5 day(s) 03/23/2023 Not-Taki ng LORazepam 0.5 MG TAKE ONE TABLET BY MOUTH EVERY DAY NEEDED for 30 08/05/2023 Not-Taking Zolpidem Tartrate 5 MG TAKE ONE TABLET B Y MOUTH EVERY EVENING AT BEDTIME for 30 11/12/2023 Active Metoprolol Succinate 25 MG 1 capsule Orally Once a day Active OneTouch Ultra - TEST FOUR TIMES SYL Y DIRECTED for 25 Active Tamsulosin HCl 0.4 MG TAKE 2 CAPSULES ON CE DAILY for 90 Active Ipratropium [place] 0.06 % USE 2 SPRAYS IN EACH NOSTRIL TWO TIMES A DAY for 11 Active Citalopram Hydrobromide 20 MG TAKE ONE TABLET BY MOUTH EVERY DAY for 30 Active Nystatin 442249 UNIT/GM 1 application Externally Twice a day 06/18/2023 Active Allopurinol 300 MG TAKE ONE TABLET BY MOUTH EVERY DAY for 90 Active Tadalafil 20 MG 1 tablet Orally Once a day as needed for 30 day(s) 03/24/2021 Active Private Driving [employer] SingaporeTouch Ultra Test - TEST 4XA DAY DIRECTED for 25 Active Aspirin 81 MG 1 tablet Orally Once a day for 30 day(s) Active Dapagliflozin Propanediol 10 MG TAKE 1 TABLET DAILY Active Januvia 100 MG TAKE 1 TABLET DAILY Active metFORMIN HCl 500 MG TAKE TWO TABLETS BY MOUTH EVERY MORNING AND TAKE ONE TABLET BY MOUTH AT BEDTIME Active Simvastatin 40 MG 1/2 tablet in the evening Orally Once a day Active Vital Signs Blood pressure systolic 122 mm Hg 12/17/19 24 Blood pressure diastolic 60 mm Hg 024 Height 71 in 12/17/2023 Weight 203 lbs 12/17/2023 BMI 28.31 kg/m2 12/17/2023 Encounters Encounter Location Date Provider Diagnosis Pato Rosario MD [address] [place] [address] [place] [phone] 12/17/2023 Pato Rosario Type 2 diabetes mellitus with diabetic neuropathy E11.40 ; Yeast infection B37.9 ; Neuropathy G62.9 and Coronary atherosclerosis due to lipid rich plaque I25.83 Assessments Encounter Date Diagnosis (ICD Code) Assessment Notes Treatment Notes Treatment Clinical Notes Section Notes 12/17/2023 Type 2 diabetes mellitus with diabetic neuropathy (ICD-10 - E11.40) stable, will cntinue current regiment 12/17/2023 Yeast infection (ICD-10 - B37.9) going to try going to every other day on the [facility], will continue to monitor 12/17/2023 Neuropathy (ICD-10 - G62.9) need notes from dr guerra in [place]/ request for records will be sent 12/17/2023 Coronary atherosclerosis due to lipid rich plaque (ICD-10 - I25.83) stable, will continue current regiment Plan Of Treatment Medication Medication Name Sig Start Date Stop Date Notes Nystatin 136448 UNIT/GM 1 application Ex ternally Twice a day 06/18/2023 Dapagliflozin Propanediol 10 MG TAKE 1 TABLET DAILY Januvia 100 MG TAKE 1 TABLET DAILY metFORMIN HCl 500 MG TAKE TWO TABLETS BY MOUTH EVERY MORNING AND TAKE ONE TABLET BY MOUTH AT BEDTIME Simvastatin 40 MG 1/2 tablet in the ev ening Orally Once a day Treatment Notes Assessment Notes Type 2 diabetes mellitus wit h diabetic neuropathy stable, will cntinue current regiment Yeast infection going to try going t o every other day on the [facility], will continue to monitor Neuropathy need notes from dr arden lorenzo in [place]/ request for records will be sent Coronary atherosclerosis due to lipid rich plaque stable, will continue current regiment Next Appt Details Provider Name:Pato briones, 06/16/2025 08:15:00 AM, [address] [place] [address], [address], [phone], Provider Name:Pato briones, 06/22/2025 01:00:00 PM, [address] [place] [address], [address], [phone], Progress Notes * Tee MARTE MDOB:1945 (78 yo M)Acc No.[id number]:12/17/2023 Progress Notes Patient: Tee Andrade Provider: Thomas Rosario MD :1945 A ge:78 Y S ex:Male Date:12/17/2023 Address:[address] [place] [address] DESTINI ROSS , [id number] Subjective: * Chief Complaints: * 6 month * HPI: S ymptom(s): patint is a 78 yo male here for 6 month follow up visit. * ROS: G eneral/Constitutional: Denies C hills. D enies F atigue. D enies F ever. D enies H eadache. E NT: Patient denies d ecreased sense of smell , any loss of taste , sore throat. D enies S ore throat. R espiratory: Denies C ough. D enies S hortness of breath at rest. D enies S hortness of breath with exertion. G astrointestinal: Denies D iarrhea. D enies N ausea. M usculoskeletal: Patient denies m uscle aches. P eripheral Vascular: Patient denies r ed and blue toes. * Medical History: * Surgical History: * Hospitalization/Major Diagno stic Procedure: * Medications: T akingAspirin 81 MG Tablet Chewable 1 tablet Orally Once a dayOneTouch Ultra Test - Strip TEST 4XA DAY DIRECTED Tadalafil 20 MG Tablet 1 tablet Orally Once a day as neededAllopurinol 300 MG Tablet TAKE ONE TABLET BY MOUTH EVERY DAY OneTouch Ultra - Strip TEST FOUR TIMES DAILY DIRECTED Nystatin 641493 UNIT/GM Cream 1 application Externally Twice a dayMetoprolol Succinate 25 MG Capsule ER 24 Hour Sprinkle 1 capsule Orally Once a daySimvastatin 40 MG Tablet 1/2 tablet in the evening Orally Once a dayCitalopram Hydrobromide 20 MG Tablet TAKE ONE TABLET BY MOUTH EVERY DAY Ipratropium [place] 0.06 % Solution USE 2 SPRAYS IN EACH NOSTRIL TWO TIMES A DAY Tamsulosin HCl 0.4 MG Capsule TAKE 2 CAPSULES ONCE DAILY Januvia 100 MG Tablet TAKE 1 TABLET DAILY Dapagliflozin Propanediol 10 MG Tablet TAKE 1 TABLET DAILY Zolpidem Tartrate 5 MG Tablet TAKE ONE TABLET BY MOUTH EVERY EVENING AT BEDTIME metFORMIN HCl 500 MG Tablet TAKE TWO TABLETS BY MOUTH EVERY MORNING AND TAKE ONE TABLET BY MOUTH AT BEDTIME Taking Aspirin 81 MG Tablet Chewable 1 tablet Orally Once a dayTaking OneTouch Ultra Test - Strip TEST 4XA DAY DIRECTED Taking Tadalafil 20 MG Tablet 1 tablet Orally Once a day as neededTaking Allopurinol 300 MG Tablet TAKE ONE TABLET BY MOUTH EVERY DAY Taking OneTouch Ultra - Strip TEST FOUR TIMES DAILY DIRECTED Taking Nystatin 926130 UNIT/GM Cream 1 application Externally Twice a dayTaking Metoprolol Succinate 25 MG Capsule ER 24 Hour Sprinkle 1 capsule Orally Once a dayTaking Simvastatin 40 MG Tablet 1/2 tablet in the evening Orally Once a dayTaking Citalopram Hydrobromide 20 MG Tablet TAKE ONE TABLET BY MOUTH EVERY DAY Taking Ipratropium [place] 0.06 % Solution USE 2 SPRAYS IN EACH NOSTRIL TWO TIMES A DAY Taking Tamsulosin HCl 0.4 MG Capsule TAKE 2 CAPSULES ONCE DAILY Taking Januvia 100 MG Tablet TAKE 1 TABLET DAILY Taking Dapagliflozin Propanediol 10 MG Tablet TAKE 1 TABLET DAILY Taking Zolpidem Tartrate 5 MG Tablet TAKE ONE TABLET BY MOUTH EVERY EVENING AT BEDTIME Taking metFORMIN HCl 500 MG Tablet TAKE TWO TABLETS BY MOUTH EVERY MORNING AND TAKE ONE TABLET BY MOUTH AT BEDTIME Not-Taking/PRNLORazepam 0.5 MG Tablet TAKE ONE TABLET BY MOUTH EVERY DAY NEEDED Zithromax Z-Deric 250 MG Tablet 2 tablet on the first day, then 1 tablet daily for 4 days Orally Once a dayFluticasone Propionate 0.050 Milligram Suspension 2 PUFF EACH NOSTRIL DAILY Nasally Once a dayNitrostat 0.400 Sublingual Tablet 1 tablet under the tongue and allow to dissolve as needed Sublingual every 5 mins times 3 for chest painMedication List reviewed and reconciled with the patientNot-Taking/PRN LORazepam 0.5 MG Tablet TAKE ONE TABLET BY MOUTH EVERY DAY NEEDED Not-Taking/PRN Zithromax Z-Deric 250 MG Tablet 2 tablet on the first day, then 1 tablet daily for 4 days Orally Once a dayNot-Taking/PRN Fluticasone Propionate 0.050 Milligram Suspension 2 PUFF EACH NOSTRIL DAILY Nasally Once a dayNot-Taking/PRN Nitrostat 0.400 Sublingual Tablet 1 tablet under the tongue and allow to dissolve as needed Sublingual every 5 mins times 3 for chest painMedication List reviewed and reconciled with the patient * Allergies: N .K.D.A.yes[Allergies Verified] Objective: * Vitals: H t: 71, Wt:203, BMI:28.31, BP:122/60. * P ast Orders: L ab:Hemoglobin A1c (Order Date - 12/10/2023) (Collection Date - 12/10/2023) Value Reference Range Hemoglobin A1c % 7.7 H <6.0 - % Estimated Average Glucose 174 - mg/dL L ab:Lipid Panel with Reflex (Order Date - 12/10/2023) (Collection Date - 12/10/2023) Value Reference Range Triglycerides 406 H <150 - mg/dL Cholesterol 123 <200 - mg/dL LDL Cholesterol Calculated TNP <100 - mg/dL HDL Cholesterol 26 L >40 - mg/dL L ab:Glucose Fasting (Order Date - 12/10/2023) (Collection Date - 12/10/2023) Value Reference Range Glucose Fasting 183 H 60-99 - mg/dL L ab:Hold Gold (Order Date - 12/10/2023) (Collection Date - 12/10/2023) Value Reference Range Hold Gold See Note - * Examination: G eneral Examination: GENERAL APPEARANCE: alert, well hydrated, in no distress . SKIN: good turgor. HEART: regular rate and rhythm, no murmurs, rubs, gallops. LUNGS: no wheezes, rales, rhonchi, good air movement, clear to auscultation bilaterally. NEUROLOGIC: has trouble with balance. . ? Assessment: * Assessment: 1. T ype 2 diabetes mellitus with diabetic neuropathy - E11.40 (Primary) 2 . Y east infection - B37.9 3 . N europathy - G62.9 4 . C oronary atherosclerosis due to lipid rich plaque - I25.83 Plan: * Treatment: Value Reference Range Yariel berumen 217 * Linda Coombs 4 01:23:23 PM EDT > Notes: stable, will cntinue current regiment.??2.?Yeast infection? Continue Nystatin Cream, 335798 UNIT/GM, 1 application, Externally, Twice a day.?? Notes: going to try going to every other day on the [facility], will continue to monitor.??3.?Neuropathy? Notes: need notes from dr guerra in [place]/ request for records will be sent.??4.?Coronary atherosclerosis due to lipid rich plaque? Continue Simvastatin Tablet, 40 MG, 1/2 tablet in the evening, Orally, Once a day.?? Notes: stable, will continue current regiment.?? * Procedure Codes: 8 2947 ASSAY, GLUCOSE, BLOOD QUANT, Modifiers: QW * * Sign off status: Completed true * Provider: Thomas Rosario MD Date: 0 12/17/2023 Generated for Dilciai ng/Magda/eTransmitting on: 1 04/25/2024 03:43 PM EST History and Physical Notes * HPI (History of Present Illness) Category Sub-Category Detail Notes Category Not es Symptom(s) patirufus is a 78 yo male here for 6 month follow up visit. Examination Category Sub-Category Detail Notes Category Not es General Examination GENERAL APPEARANCE: alert, w ell hydrated, in no distress HEART: regular rate and rhy thm, no murmurs, rubs, gallops LUNGS: no wheezes, rales, r honchi, good air movement, clear to auscultation bilaterally NEUROLOGIC: has trouble with bal ance. SKIN: good turgor
--- OUTSIDE RECORDS SUMMARY | 2024-04-28 03:45 | XMS_ITS ---
Author Organization Pato Rosario MD Address [address] [place] [phone] Care Team Providers Care Machine Setter Automatic Name Role Phone Marlene Pato Primary Care Provider [phone] Allergies No Known Allergies Results Component Value Reference Range Notes SARS-CoV2/FLU/RSV Reviewed date:04/28/2024 12:46:42 PM Interpretation: Performing Lab:[facility], [address] [place] [id number] Notes/Report: Influenza A PCR NEGATIVE Negative Influenza B PCR NEGATIVE Negative Resp Syncy Virus RNA Qual PCR NEGATIVE Negative SARS COV2 PCR INHOUSE NEGATIVE Negative All test results must be correlated with clinical findings. Negative results do not preclude SARS-CoV2, influenza A virus, influenza B virus and/or RSV infection and should not be used as the sole basis for treatment or other patient management decisions. Negative results must be combined with clinical observations, patient history, and epidemiological information. This test has not been evaluated for monitoring treatment of infection. This test has been authorized by the FDA under an Emergency Use Authorization (EUA) for use by authorized laboratories. Testing performed on the [employer] GeneXpert utilizing real-time RT-PCR. All SARS CoV2 and positive influenza A/B results are reported to [facility]. REASON FOR VISIT COUGHING, CONGESTED, /o fatigue, productive cough, congestion, headache sore throat, x 4days will test for Covid before Telehealth, Video [phone] Medications Medication SIG (Take, Route, Frequency, Duration) Notes Start Date End Date Status Nitrostat 0.400 1 tablet under the tongue and allow to dissolve as needed Sublingual every 5 mins times 3 for chest pain for 5 Not-Taking LORazepam 0.5 MG TAKE ONE TABLET BY MOUTH EVERY DAY NEEDED for 30 08/05/2023 Not-Taking Allopurinol 300 MG TAKE ONE TABLET BY MOUTH EVERY DAY for 90 Active Fluticasone Propionate 0.050 Milligram 2 PUFF EACH NOSTRIL DAILY Nasally Once a day for 30 Not-Taking Zithromax Z-Deric 250 MG 2 tablet on the day, then 1 tablet daily for 4 days Orally Once a day for 5 day(s) 03/23/2023 Not-Taki ng Dapagliflozin Propanediol 10 MG TAKE 1 TABLET DAILY Active Januvia 100 MG TAKE 1 TABLET DAILY Active Amoxicillin-Pot Clavulanate 875-125 MG 1 tablet Orally every 12 hrs for 10 days 04/28/2024 Active Citalopram Hydrobromide 20 MG TAKE ONE TABLET BY MOUTH EVERY DAY for 30 Active Nystatin 096252 UNIT/GM 1 application Externally Twice a day 06/18/2023 Active Zolpidem Tartrate 5 MG TAKE ONE TABLET B Y MOUTH EVERY EVENING AT BEDTIME for 30 11/12/2023 Active Tamsulosin HCl 0.4 MG TAKE 2 CAPSULES ON CE DAILY for 90 Active Ipratropium [place] 0.06 % USE 2 SPRAYS IN EACH NOSTRIL TWO TIMES A DAY for 11 Active metFORMIN HCl 500 MG TAKE TWO TABLETS BY MOUTH EVERY MORNING AND TAKE ONE TABLET BY MOUTH AT BEDTIME Active Simvastatin 40 MG 1/2 tablet in the evening Orally Once a day Active Metoprolol Succinate 25 MG 1 capsule [...] Once a day for 30 day(s) Active Vital Signs Height 71 in 04/28/2024 Weight 196 lbs 04/28/2024 BMI 27.33 kg/m2 04/28/2024 eight at home is 196 Bp not taken no temp Encounters Encounter Location Date Provider Diagnosis Pato Rosario MD [address] [place] [phone] 04/28/2024 Pato Rosario Respiratory infection J98.8 Assessments Encounter Date Diagnosis (ICD Code) Assessment Notes Treatment Notes Treatment Clinical Notes Section Notes 04/28/2024 Respiratory infection (ICD-10 - J98.8) PATIENT GOING TO [facility] , ORDER FAXED TO PATIENT REG, patient verbalized understanding of medication and directions for use Plan Of Treatment Medication Medication Name Sig Start Date Stop Date Notes Amoxicillin-Pot Clavulanate 875-125 MG 1 tablet Orally every 12 hrs for 10 days 04/28/2024 Treatment Notes Assessment Notes Respiratory infection PATIENT GOING TO [facility] , ORDER FAXED TO PATIENT REG, patient verbalized understanding of medication and directions for use Next Appt Details Provider Name:Pato briones, 06/16/2025 08:15:00 AM, [address] [place] [address], [address], [phone], Provider Name:Pato briones, 06/22/2025 01:00:00 PM, [address] [place] [address], [address], [phone], Progress Notes * Tee MARTE MDOB:1945 (78 yo M)Acc No.[id number]:04/28/2024 Patient: Tee Andrade Provider: Thomas Rosario MD :1945 A ge:78 Y S ex:Male Date:04/28/2024 Address:[address] [place] [address] DESTINI ROSS , [id number] Subjective: * Chief Complaints: * C OUGHING, CONGESTED/o fatigue, productive cough, congestion, headache sore throat, x 4days will test for Covid before TelehealthVideo [phone] * HPI: S ymptom(s): Telehealth L ocation of provider rendering services: [address], [address], L ocation of patient: a t address listed in demographics for today's visit, P atient identification confirmed using: N sara, , SSN, Insurance information, T elehealth method: V ideo conference where patient is visible to the provider of care, C onsent: P atient verbally consented to treatment, Patient verbally consented to billing insurance company, Patient informed of any privacy concerns related to method of visit. patient is a 78 yo male video telehealth visit, complaiing of cough, congestion, fatiguie, headache, sore throat for 4 days. * ROS: G eneral/Constitutional: Denies C hills. A dmits F atigue. D enies F ever. A dmits H eadache. E NT: Patient denies d ecreased sense of smell , any loss of taste . A dmits S ore throat. R espiratory: Admits C ough. D enies S hortness of breath at rest. D enies S hortness of breath with exertion. A dmits S putum production. G astrointestinal: Denies D iarrhea. D enies [...] 1 tablet Orally Once a day as neededOneTouch Ultra - Strip TEST FOUR TIMES DAILY DIRECTED Metoprolol Succinate 25 MG Capsule ER 24 Hour Sprinkle 1 capsule Orally Once a dayIpratropium [place] 0.06 % Solution USE 2 SPRAYS IN EACH NOSTRIL TWO TIMES A DAY Tamsulosin HCl 0.4 MG Capsule TAKE 2 CAPSULES ONCE DAILY Zolpidem Tartrate 5 MG Tablet TAKE ONE TABLET BY MOUTH EVERY EVENING AT BEDTIME Simvastatin 40 MG Tablet 1/2 tablet in the evening Orally Once a daymetFORMIN HCl 500 MG Tablet TAKE TWO TABLETS BY MOUTH EVERY MORNING AND TAKE ONE TABLET BY MOUTH AT BEDTIME Januvia 100 MG Tablet TAKE 1 TABLET DAILY Dapagliflozin Propanediol 10 MG Tablet TAKE 1 TABLET DAILY Nystatin 617851 UNIT/GM Cream 1 application Externally Twice a dayCitalopram Hydrobromide 20 MG Tablet TAKE ONE TABLET BY MOUTH EVERY DAY Allopurinol 300 MG Tablet TAKE ONE TABLET BY MOUTH EVERY DAY Taking Aspirin 81 MG Tablet Chewable 1 tablet Orally Once a dayTaking OneTouch Ultra Test - Strip TEST 4XA DAY DIRECTED Taking Tadalafil 20 MG Tablet 1 tablet Orally Once a day as neededTaking OneTouch Ultra - Strip TEST FOUR TIMES DAILY DIRECTED Taking Metoprolol Succinate 25 MG Capsule ER 24 Hour Sprinkle 1 capsule Orally Once a dayTaking Ipratropium [place] 0.06 % Solution USE 2 SPRAYS IN EACH NOSTRIL TWO TIMES A DAY Taking Tamsulosin HCl 0.4 MG Capsule TAKE 2 CAPSULES ONCE DAILY Taking Zolpidem Tartrate 5 MG Tablet TAKE ONE TABLET BY MOUTH EVERY EVENING AT BEDTIME Taking Simvastatin 40 MG Tablet 1/2 tablet in the evening Orally Once a dayTaking metFORMIN HCl 500 MG Tablet TAKE TWO TABLETS BY MOUTH EVERY MORNING AND TAKE ONE TABLET BY MOUTH AT BEDTIME Taking Januvia 100 MG Tablet TAKE 1 TABLET DAILY Taking Dapagliflozin Propanediol 10 MG Tablet TAKE 1 TABLET DAILY Taking Nystatin 997625 UNIT/GM Cream 1 application Externally Twice a dayTaking Citalopram Hydrobromide 20 MG Tablet TAKE ONE TABLET BY MOUTH EVERY DAY Taking Allopurinol 300 MG Tablet TAKE ONE TABLET BY MOUTH EVERY DAY Not-Taking/PRNLORazepam 0.5 MG Tablet TAKE ONE TABLET [...] Verified] Objective: * Vitals: H t: 71, Wt:196, BMI:27.33 eight at home is 196 Bp not taken no temp. * Examination: G eneral Examination: GENERAL APPEARANCE: a lert, well hydrated, in no distress.? Assessment: * Assessment: 1. R espiratory infection - J98.8 (Primary) Plan: * Treatment: * Procedure Codes: * * Sign off status: Completed true * Provider: Thomas Rosario MD Date: 0 04/28/2024 Generated for Magnus serrano/Magda/Daquanitting on: 04/25/2024 03:43 PM EST History and Physical Notes * HPI (History of Present Illness) Category Sub-Category Detail Notes Category Not es Symptom(s) Telehealth Location of [facility] rendering services:: [address] [place] [address] Drive, [address] patient is a 78 yo male video telehealth visit, complaiing of cough, congestion, fatiguie, headache, sore throat for 4 days Location of patient:: at address listed in demographics for today's visit Patient identification confirmed using:: Name, , SSN, Insurance information Telehealth method:: Video co nference where patient is visible to the provider of care Consent:: Patient verbally c onsented to treatment, Patient verbally consented to billing insurance company, Patient informed of any privacy concerns related to method of visit Examination Category Sub-Category Detail Notes Category Not es General Examination GENERAL APPEARANCE: alert, w ell hydrated, in no distress
--- OUTSIDE RECORDS SUMMARY | 2024-06-12 02:30 | XMS_ITS ---
Author Organization Pato Rosario MD Address [address] [place] [phone] Care Team Providers Care Return Agent Airport Name Role Phone Pato Rosario Primary Care Provider [phone] Results Component Value Reference Range Notes Complete Blood Count Auto Di ff Reviewed date:06/12/2024 12:51:51 PM Interpretation: Performing Lab:[facility], [address] [place] [phone] Notes/Report: White Blood Count 7.6 4.8-10.8 X10*3/uL Red Blood Count 4.84 4.60-5.80 X10*6/uL Hemoglobin 14.6 14.0-18.0 g/dl Hematocrit 42.4 42.0-52.0 % Mean Corpuscular Volume 87.6 80.0-98.0 fL Mean Corpuscular Hemoglobin 30.2 27.0-33.0 pg Mean Corpuscular HGB Conc 34.4 31.0-36.0 g/dl Red Cell Distribution Width 13.5 11.0-16.0 % Platelet Count 107 160-400 X10*3/uL Mean Platelet Volume 11.3 9.4-12.4 fL Neutrophils Percent Auto 58.6 45-73 % Imm Gran Pct Auto 0.5 0.0-0.4 % Lymphocytes Percent Auto 24.7 20-40 % Monocytes Percent Auto 9.4 2-11 % Eosinophils Percent Auto 5.9 0-4 % Basophils Percent Auto 0.9 0-2 % NRBC Pct Auto 0.0 0.0-0.2 /100WBC Neutrophils Absolute Auto 4.4 2.0-8.3 x10*3/u L Imm Gran Abs Auto 0.04 0.00-0.03 X10*3/uL Lymphocytes Absolute Auto 1.9 1.2-4.9 X10*3/u L Monocytes Absolute Auto 0.7 0.1-1.2 X10*3/uL Eosinophils Absolute Auto 0.5 0.0-0.4 X10*3/u L Basophils Absolute Auto 0.1 0.0-0.2 X10*3/uL NRBC Abs Auto 0.000 0.0-0.012 X10*3/uL Comprehensive [place]. Panel Fa st Reviewed date:06/12/2024 12:47:20 PM Interpretation: Performing Lab:[facility], [address] [place] [phone] Notes/Report: Sodium 142 135-145 mmol/L Potassium 4.1 3.3-5.1 mmol/L Chloride 107 96-108 mmol/L Carbon Dioxide 27 22-29 mmol/L Anion Gap 12 12-20 Blood Urea Nitrogen 31 9-16 mg/dL Creatinine 1.47 0.5-1.4 mg/dL Estimated Glomerular Filt Rate 46 Chronic Kidney Disease: Estimated GFR < 60 mL/min/1.73m2 Severe Kidney Disease: Estimated GFR < 15 mL/min/1.73m2 Glucose Fasting 136 60-99 mg/dL A fasting glucose of 126 mg/dl or greater on more than one occasion is considered diagnostic of diabetes. Calcium 9.8 8.4-10.2 mg/dL Bilirubin Total 0.8 0.0-1.0 mg/dL Aspartate Amino Transferase 37 5-37 U/L Alanine Aminotransferase 47 0-40 U/L Total Protein 7.1 6.5-8.0 g/dL Albumin Level 4.0 3.5-5.0 g/dL Alkaline Phosphatase 83 39-117 U/L Lipid Panel Reviewed date:06/12/2024 12:43:28 PM Interpretation: Performing Lab:[address] [phone] Notes/Report: Triglycerides 308 <150 mg/dL Desirable Triglyceride: less than 150 mg/dL Borderline High Triglyceride 150-199 mg/dL High Triglyceride: 200-499 mg/dL Very High Triglyceride: greater than or equal to 5OO mg/dL Cholesterol 130 <200 mg/dL Desirable Cholesterol: less than 200 mg/dL Borderline High Cholesterol: 200-239 mg/dL High Cholesterol: greater than 239 mg/dL LDL Cholesterol Calculated 38 <100 mg/dL Desirable LDL: less than 100 mg/dL Near Optimal/Above Optimal LDL: 110-129 mg/dL Borderline High LDL: 130-159 mg/dL High LDL: 160-189 mg/dL Very High LDL: greater than or equal to 190 mg/dL HDL Cholesterol 31 >40 mg/dL Desirable HDL: greater than 40 mg/dL Note: This HDL assay may give artificially low results in patients with liver disease. PSA,Total (Free>4and<10) Reviewed date:06/12/2024 12:54:14 PM Interpretation: Performing Lab:[facility], [address] [place] [phone] Notes/Report: PSA,Total (Free>4and<10) 4.26 0.00-4.00 ng/mL PSA methodology: Snowden Alinity i Chemiluminescent Microparticle Immunoassay (CMIA) Microalbumin, Random Reviewed date:06/12/2024 04:53:34 PM Interpretation: Performing Lab:[address] [phone] Notes/Report: Creatinine Urine 80.67 Microalbumin Urine 805.0 Microalbum/Creatinine Ratio Ur 997.8 <30 ug/mg cr Albumin/Creatinine Ratio Reference Ranges: Normal: < 30 ug/mg creatinine Microalbuminuria: 30 - 300 ug/mg creatinine Clinical Albuminuria: > 300 ug/mg creatinine Hemoglobin A1c Reviewed date:06/12/2024 12:43:17 PM Interpretation: Performing Lab:[facility], [address] [place] [phone] Notes/Report: Hemoglobin A1c % 7.9 <6.0 % Hemoglobin A1C Reference Range Adults: 4.8 - 6.0 % Non diabetic: < 6.0 % Goal: < 7.0 % Additional Action Suggested: > 8.0 % Note: Hemoglobin A1c results are invalid for patients with abnormal amounts of HbF. Blood transfusions may impact the HbA1c concentration in the patient sample. Estimated Average Glucose 180 eAG = Estimated average glucose which is %A1C expressed as average glucose, using the formula of the T8F-Fbhvzou Average Glucose study (ADAG), Diabetes Care, Vol.31,#8, Nov. 2007 UA ClnCatch+Micro w/rflx Cul t Reviewed date:06/12/2024 05:03:30 PM Interpretation: Performing Lab:[facility], [address] [place] [phone] Notes/Report: Urine, Clean Catch Color Urine Yellow Appearance Urine Clear PH 5.0 5.0-9.0 Glucose Urine UA >=1000 Negative mg/dL Urine Blood Negative Negative Specific [place] - Urine >= 1.030 1.005-1.025 Urine Protein 100 (2+) Neg-Trace mg/dL Urine Ketones Negative Negative mg/dL Nitrite Urine Negative Negative Leukocyte Esterase Urine Negative Negative RBC Urine 0-2 0-2 /HPF WBC Urine 0-5 0-5 /HPF Squamous Epithelial Cell Urine 0-2 0-2 /HPF Bacteria Urine None Seen None Seen Hyaline Casts Urine 0-2 0-2 /LPF REASON FOR VISIT yearly fasting labs Encounters Encounter Location Date Provider Diagnosis Pato Rosario MD [address] [place] [address] Drive [address] [place], [place] [phone] 06/12/2024 Pato Rosario Type 2 diabetes mellitus with diabetic neuropathy E11.40 ; Thrombocytopenia D69.6 ; Prostatism N40.0 and Hypertension, unspecified type I10 Assessments Encounter Date Diagnosis (ICD Code) Assessment Notes Treatment Notes Treatment Clinical Notes Section Notes 06/12/2024 Type 2 diabetes mellitus with diabetic neuropathy (ICD-10 - E11.40) 06/12/2024 Thrombocytopenia (ICD-10 - D69.6) 06/12/2024 Prostatism (ICD-10 - N40.0) 06/12/2024 Hypertension, unspecified type (ICD-10 - I10) Plan Of Treatment Next Appt Details Provider Name:Pato Galarza ier, 06/16/2025 08:15:00 AM, [address], [address], [place], [place], [phone], Provider Name:Pato Galarza ier, 06/22/2025 01:00:00 PM, [address], [address], [place], [place], [phone], Progress Notes * Tee MARTE MDOB:1945 (79 yo M)Acc No.[id number]:06/12/2024 Progress Note Patient: Tee COLLINS Provider: Thomas Rosario MD :1945 A ge:79 Y S ex:Male Date:06/12/2024 Address:[address] [place] [address] , [place] [id number] Subjective: * Chief Complaints: * 1 . Yearly fasting labs. * Medical History: Objective: * Vitals: Assessment: * Assessment: 1. T ype 2 diabetes mellitus with diabetic neuropathy - E11.40 (Primary) 2 .?Thrombocytopenia - D69.6 3 . P rostatism - N40.0 4 . H ypertension, unspecified type - I10 Plan: * Treatment: 2. T hrombocytopenia L AB: Complete Blood Count Auto Diff (Collection Date & Time - 06/12/2024 09:50 AM) L AB: Comprehensive [place]. Panel Fast (Collection Date & Time - 06/12/2024 09:50 AM) L AB: Lipid Panel (Collection Date & Time - 06/12/2024 09:50 AM) L AB: PSA,Total (Free>4and<10) (Collection Date & Time - 06/12/2024 09:50 AM) L AB: Microalbumin, Random (Collection Date & Time - 06/12/2024 09:50 AM) L AB: Hemoglobin A1c (Collection Date & Time - 06/12/2024 09:50 AM) L AB: UA ClnCatch+Micro w/rflx Cult (Collection Date & Time - 06/12/2024 09:50 AM) 3. P rostatism L AB: Complete Blood Count Auto Diff (Collection Date & Time - 06/12/2024 09:50 AM) L AB: Comprehensive [place]. Panel Fast (Collection Date & Time - 06/12/2024 09:50 AM) L AB: Lipid Panel (Collection Date & Time - 06/12/2024 09:50 AM) L AB: PSA,Total (Free>4and<10) (Collection Date & Time - 06/12/2024 09:50 AM) L AB: Microalbumin, Random (Collection Date & Time - 06/12/2024 09:50 AM) L AB: Hemoglobin A1c (Collection Date & Time - 06/12/2024 09:50 AM) L AB: UA ClnCatch+Micro w/rflx Cult (Collection Date & Time - 06/12/2024 09:50 AM) 4. H ypertension, unspecified type L AB: Complete Blood Count Auto Diff (Collection Date & Time - 06/12/2024 09:50 AM) L AB: Comprehensive [place]. Panel Fast (Collection Date & Time - 06/12/2024 09:50 AM) L AB: Lipid Panel (Collection Date & Time - 06/12/2024 09:50 AM) L AB: PSA,Total (Free>4and<10) (Collection Date & Time - 06/12/2024 09:50 AM) L AB: Microalbumin, Random (Collection Date & Time - 06/12/2024 09:50 AM) L AB: Hemoglobin A1c (Collection Date & Time - 06/12/2024 09:50 AM) L AB: UA ClnCatch+Micro w/rflx Cult (Collection Date & Time - 06/12/2024 09:50 AM) * Procedure Codes: 3 6415 VENIPUNCT, ROUTINE* * * The named appointment provid er may or may not be the originator of this progress note, and it is not deemed complete until electronically signed by the appointment provider. Sign off status: Pending * Provider: Thomas Rosario MD Date: 0 06/12/2024 Generated for Magnus serrano/Magda/Daquanitting on: 1 04/25/2024 03:42 PM EST
--- OUTSIDE RECORDS SUMMARY | 2024-06-19 08:00 | XMS_ITS ---
Author Organization Pato Rosario MD Address [address] [place] [phone] Care Team Providers Care Environmental Planner Name Role Phone Pato Rosario Primary Care Provider Allergies No Known Allergies REASON FOR VISIT review labs, CBACK PSA Medications Medication SIG (Take, Route, Frequency, Duration) Notes Start Date End Date Status LORazepam 0.5 MG TAKE ONE TABLET BY MOUTH EVERY DAY NEEDED for 30 08/05/2023 Not-Taking Nitrostat 0.400 1 tablet under the tongue and allow to dissolve as needed Sublingual every 5 mins times 3 for chest pain for 5 Not-Taking Zithromax Z-Deric 250 MG 2 tablet on the irs day, then 1 tablet daily for 4 days Orally Once a day for 5 day(s) 03/23/2023 Not-Taki ng Fluticasone Propionate 0.050 Milligram 2 PUFF EACH NOSTRIL DAILY Nasally Once a day for 30 Not-Taking Nystatin 174919 UNIT/GM 1 application Externally Twice a day 06/18/2023 Active Allopurinol 300 MG TAKE ONE TABLET BY MOUTH EVERY DAY for 90 Active Simvastatin 40 MG 1/2 tablet in the evening Orally Once a day Active Zolpidem Tartrate 5 MG TAKE ONE TABLET B Y MOUTH EVERY EVENING AT BEDTIME for 30 11/12/2023 Active OneTouch Ultra Test - TEST 4XA DAY DIRECTED for 25 Active Tadalafil 20 MG 1 tablet Orally Once a day as needed for 30 day(s) 03/24/2021 Active Aspirin 81 MG 1 tablet Orally Once a day for 30 day(s) Active Ipratropium [place] 0.06 % USE 2 SPRAYS IN EACH NOSTRIL TWO TIMES A DAY for 11 Active OneTouch Ultra - TEST FOUR TIMES SYL Y DIRECTED for 25 Active Januvia 100 MG TAKE 1 TABLET DAILY Active Citalopram Hydrobromide 20 MG TAKE ONE TABLET BY MOUTH EVERY DAY Active Tamsulosin HCl 0.4 MG TAKE 2 CAPSULES ON CE DAILY Active metFORMIN HCl 500 MG TAKE TWO TABLETS BY MOUTH EVERY MORNING AND TAKE ONE TABLET BY MOUTH AT BEDTIME Active Metoprolol Succinate 25 MG 1 capsule Orally Once a day Active Social History Tobacco Use: Social History Observation Description Date Details (start date - stop date) Former Smoker NA - NA Tobacco Use/Smoking Question Answer Notes Patient is a former smoker How long has it been since y ou last smoked? > 10 years Additional Findings: Tobacco Non-User Fo rmer smoker, currently using no form of tobacco Alcohol Screen Question Answer Notes Did you have a drink containing alcohol in the p ast year? 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.40 ; Balanitis N48.1 ; Foot drop, left foot M21.372 ; Hypertension, unspecified type I10 ; Prostatism N40.0 ; Anxiety F41.9 ; Colon cancer screening Z12.11 and Depression screening Z13.31 Assessments Encounter Date Diagnosis (ICD Code) Assessment Notes Treatment Notes Treatment Clinical Notes Section Notes 06/19/2024 Type 2 diabetes mellitus with diabetic neuropathy (ICD-10 - E11.40) stop the farxiga as it causes the infection 06/19/2024 Balanitis (ICD-10 - N48.1) continue with nystatin 06/19/2024 Foot drop, left foot (ICD-10 - M21.372) would benefit from an AFO brace on bothe feet and to continue with his exercise 06/19/2024 Hypertension, unspecified type (ICD-10 - I10) 06/19/2024 Prostatism (ICD-10 - N40.0) 06/19/2024 Anxiety (ICD-10 - F41.9) 06/19/2024 Colon cancer screening (ICD-10 - Z12.11) 06/19/2024 Depression screening (ICD-10 - Z13.31) Plan Of Treatment Medication Medication Name Sig Start Date Stop Date Notes Dapagliflozin Propanediol 10 MG TAKE 1 TABLET DAILY Januvia 100 MG TAKE 1 TABLET DAILY Citalopram Hydrobromide 20 MG TAKE ONE T ABLET BY MOUTH EVERY DAY Tamsulosin HCl 0.4 MG TAKE 2 CAPSULES ONCE DAILY metFORMIN HCl 500 MG TAKE TWO TABLETS BY MOUTH EVERY MORNING AND TAKE ONE TABLET BY MOUTH AT BEDTIME Metoprolol Succinate 25 MG 1 capsule Ora lly Once a day Treatment Notes Assessment Notes Type 2 diabetes mellitus wit h diabetic neuropathy stop the farxiga as it causes the infection Balanitis continue with nystat in Next Appt Details Follow Up: 3 Months, Reason: Provider Name:Pato briones, 06/16/2025 08:15:00 AM, [address] [place] [address], [address], [place], [phone], Provider Name:Pato briones, 06/22/2025 01:00:00 PM, [address] [place] [address], [address], [place], [place], [phone], Progress Notes * Tee MARTE MDOB:1945 (79 yo M)Acc No.[id number]:06/19/2024 Patient: eTe COLLINS Provider: Thomas Rosario MD :1945 A ge:79 Y S ex:Male Date:06/19/2024 Address:[address] [place] [address], [phone] Subjective: * Chief Complaints: * R eview labsCBACK PSA * HPI: D epression Screening: PHQ-9 L ittle interest or pleasure in doing things N ot at all, F eeling down, depressed, or hopeless N ot at all, T rouble falling or staying asleep, or sleeping too much N ot at all, F eeling tired or having little energy N ot at all, P oor appetite or overeating N ot at all, F eeling bad about yourself or that you are a failure, or have let yourself or your family down N ot at all, T rouble concentrating on things, such as reading the newspaper or watching television N ot at all, M oving or speaking so slowly that other people could have noticed; or the opposite, being so fidgety or restless that you have been moving around a lot more than usual N ot at all, T houghts that you would be better off or of hurting yourself in some way N ot at all, T otal Score 0 . I nterpretation and Intervention D epression Screening Findings N egative, F ollow-Up for Depression : review of PHQ-9 found negative result, no follow-up needed. C ommunication Needs: Communication Needs D oes the patient have a hearing impairment N o, D oes the patient have a vision impairment? Y es, I f yes, what is the vision impairment? G lasses, D oes the patient have a cognition impairment? N o. F all Risk: History H ave you had any falls with injury in the past year? N o, H ave you had two or more falls in the past year? N o. S MOUNA Questions: SDOH Questions I n the past year have you been worried about losing housing? N o, I n the past year have you or any family members you live with been unable to get any of the following when it was really needed? Check all that apply: N one. S ymptom(s): patient is a 79 yo male here for review of recent labs and followhaving trouble with walking. had been throwing up. for 4 days.. no diarrhea. going to therapy u p of chronic issues. * ROS: G eneral/Constitutional: Patient denies f atigue, headache. C hange in appetite?denies. C hills d enies. F ever d enies. O phthalmologic: Blurred vision d enies. D ischarge d enies. P ain d enies. E NT: Patient denies d ecreased sense of smell, any loss of taste, sore throat. D ecreased hearing d enies. S ore throat d enies. S wollen glands?denies. E ndocrine: Cold intolerance d enies. E xcessive thirst d enies. H eat intolerance d enies. W eight loss d enies. R espiratory: Cough d enies. S hortness of breath at rest d enies. S hortness of breath with exertion d enies. W heezing d enies. C ardiovascular: Chest pain at rest d enies. C hest pain with exertion?denies. I rregular heartbeat d enies. S hortness of breath d enies. ? G astrointestinal: Abdominal pain d enies. C hange in bowel habits d enies. D iarrhea d enies. N ausea d enies. R ectal bleeding d enies. V omiting d enies . G enitourinary: Blood in urine d enies. D ifficulty urinating d enies. F requent urination d enies. M usculoskeletal: Patient denies m uscle aches. P ainful joints d enies. W eakness d enies. P eripheral Vascular: Patient denies r ed and blue toes. S kin: Dry skin d enies. I tching d enies. D enies?Mole(s), changes in moles, new moles or any lesions of concern. D enies P hotosensitivity. R rosina d enies. N eurologic: Dizziness d enies. F ainting d enies. H eadache?denies. * Medical History: * Surgical History: * Hospitalization/Major Diagno stic Procedure: * Family History: F ather: 83 yrs, CVA, family history unknown . M other: 93 yrs, alzheimer, diagnosed with Alzheimer disease. 2 daughter(s) . . 1 brother at 2 years old Pneumonia father- cva mother - alzheimer's, Denies mental health/substance abuse family history, Denies mental health/substance abuse family history, Denies mental health/substance abuse family history. * Social History: T obacco Use: T obacco Use/Smoking P atient is a f ormer smoker, H ow long has it been since you last smoked? > 10 years, A dditional Findings: Tobacco Non-User F ormer smoker, currently using no form of tobacco. D rugs/Alcohol: A lcohol Screen D id you have a drink containing alcohol in the past year? N o, P oints 0 , I nterpretation N egative. M iscellaneous: C affeine: yes, frequency:, 1-2 cups per day. Children: yes. Exercise: no. Home smoke detector use: yes. Housing: owning. Living with: spouse. Marital status: . Occupation: retired. Pets: none. Travel outside of the [place]: no. * Medications: T akingAspirin 81 MG Tablet Chewable 1 tablet Orally Once a day OneTouch Ultra Test - Strip TEST 4XA DAY DIRECTED Tadalafil 20 MG Tablet 1 tablet Orally Once a day as needed OneTouch Ultra - Strip TEST FOUR TIMES DAILY DIRECTED Metoprolol Succinate 25 MG Capsule ER 24 Hour Sprinkle 1 capsule Orally Once a day Ipratropium [place] 0.06 % Solution USE 2 SPRAYS IN EACH NOSTRIL TWO TIMES A DAY Tamsulosin HCl 0.4 MG Capsule TAKE 2 CAPSULES ONCE DAILY Zolpidem Tartrate 5 MG Tablet TAKE ONE TABLET BY MOUTH EVERY EVENING AT BEDTIME Simvastatin 40 MG Tablet 1/2 tablet in the evening Orally Once a day metFORMIN HCl 500 MG Tablet TAKE TWO TABLETS BY MOUTH EVERY MORNING AND TAKE ONE TABLET BY MOUTH AT BEDTIME Januvia 100 MG Tablet TAKE 1 TABLET DAILY Dapagliflozin Propanediol 10 MG Tablet TAKE 1 TABLET DAILY Nystatin 373090 UNIT/GM Cream 1 application Externally Twice a day Citalopram Hydrobromide 20 MG Tablet TAKE ONE TABLET BY MOUTH EVERY DAY Allopurinol 300 MG Tablet TAKE ONE TABLET BY MOUTH EVERY DAY Taking Aspirin 81 MG Tablet Chewable 1 tablet Orally Once a day Taking OneTouch Ultra Test - Strip TEST 4XA DAY DIRECTED Taking Tadalafil 20 MG Tablet 1 tablet Orally Once a day as needed Taking OneTouch Ultra - Strip TEST FOUR TIMES DAILY DIRECTED Taking Metoprolol Succinate 25 MG Capsule ER 24 Hour Sprinkle 1 capsule Orally Once a day Taking Ipratropium [place] 0.06 % Solution USE 2 SPRAYS IN EACH NOSTRIL TWO TIMES A DAY Taking Tamsulosin HCl 0.4 MG Capsule TAKE 2 CAPSULES ONCE DAILY Taking Zolpidem Tartrate 5 MG Tablet TAKE ONE TABLET BY MOUTH EVERY EVENING AT BEDTIME Taking Simvastatin 40 MG Tablet 1/2 tablet in the evening Orally Once a day Taking metFORMIN HCl 500 MG Tablet TAKE TWO TABLETS BY MOUTH EVERY MORNING AND TAKE ONE TABLET BY MOUTH AT BEDTIME Taking Januvia 100 MG Tablet TAKE 1 TABLET DAILY Taking Dapagliflozin Propanediol 10 MG Tablet TAKE 1 TABLET DAILY Taking Nystatin 720001 UNIT/GM Cream 1 application Externally Twice a day Taking Citalopram Hydrobromide 20 MG Tablet TAKE ONE TABLET BY MOUTH EVERY DAY Taking Allopurinol 300 MG Tablet TAKE ONE TABLET BY MOUTH EVERY DAY Not-Taking/PRNLORazepam 0.5 MG Tablet TAKE ONE TABLET BY MOUTH EVERY DAY NEEDED Zithromax Z-Deric 250 MG Tablet 2 tablet on the first day, then 1 tablet daily for 4 days Orally Once a day Fluticasone Propionate 0.050 Milligram Suspension 2 PUFF EACH NOSTRIL DAILY Nasally Once a day Nitrostat 0.400 Sublingual Tablet 1 tablet under the tongue and allow to dissolve as needed Sublingual every 5 mins times 3 for chest pain Not-Taking/PRN LORazepam 0.5 MG Tablet TAKE ONE TABLET BY MOUTH EVERY DAY NEEDED Not-Taking/PRN Zithromax Z- Deric 250 MG Tablet 2 tablet on the first day, then 1 tablet daily for 4 days Orally Once a day Not-Taking/PRN Fluticasone Propionate 0.050 Milligram Suspension 2 PUFF EACH NOSTRIL DAILY Nasally Once a day Not-Taking/PRN Nitrostat 0.400 Sublingual Tablet 1 tablet under the tongue and allow to dissolve as needed Sublingual every 5 mins times 3 for chest pain DiscontinuedAmoxicillin-Pot Clavulanate 875-125 MG Tablet 1 tablet Orally every 12 hrs Medication List reviewed and reconciled with the patientDiscontinued Amoxicillin-Pot Clavulanate 875-125 MG Tablet 1 tablet Orally every 12 hrs Medication List reviewed and reconciled with the patient * Allergies: N .K.D.A.yes[Allergies Verified] Objective: * Vitals: H t: 71, Wt: 197, BMI:27.47, BP:118/52, Wt-k.36. * P ast Orders: L ab:Complete Blood Count Auto Diff (Order Date - 06/12/2024) (Collection Date & Time - 06/12/2024 09:50 AM) Value Reference Range White Blood Count 7.6 4.8-10.8 - X10*3/uL Red Blood Count 4.84 4.60-5.80 - X10*6/uL Hemoglobin 14.6 14.0-18.0 - g/dl Hematocrit 42.4 42.0-52.0 - % Mean Corpuscular Volume 87.6 80.0-98.0 - fL Mean Corpuscular Hemoglobin 30.2 27.0-33.0 - pg Mean Corpuscular HGB Conc 34.4 31.0-36.0 - g/ dl Red Cell Distribution Width 13.5 11.0-16.0 - % Platelet Count 107 L 160-400 - X10*3/uL Mean Platelet Volume 11.3 9.4-12.4 - fL Neutrophils Percent Auto 58.6 45-73 - % Imm Gran Pct Auto 0.5 H 0.0-0.4 - % Lymphocytes Percent Auto 24.7 20-40 - % Monocytes Percent Auto 9.4 2-11 - % Eosinophils Percent Auto 5.9 H 0-4 - % Basophils Percent Auto 0.9 0-2 - % NRBC Pct Auto 0.0 0.0-0.2 - /100WBC Neutrophils Absolute Auto 4.4 2.0-8.3 - x10* 3/uL Imm Gran Abs Auto 0.04 H 0.00-0.03 - X10*3/uL Lymphocytes Absolute Auto 1.9 1.2-4.9 - X10* 3/uL Monocytes Absolute Auto 0.7 0.1-1.2 - X10*3/ uL Eosinophils Absolute Auto 0.5 H 0.0-0.4 - X10* 3/uL Basophils Absolute Auto 0.1 0.0-0.2 - X10*3/ uL NRBC Abs Auto 0.000 0.0-0.012 - X10*3/uL L ab:UA ClnCatch+Micro w/rflx Cult (Order Date - 06/12/2024) (Collection Date & Time - 06/12/2024 09:50 AM) Value Reference Range Color Urine Yellow - Appearance Urine Clear - PH 5.0 5.0-9.0 - Glucose Urine UA >=1000 A Negative - mg/dL Urine Blood Negative Negative - Specific [place] - Urine >= 1.030 H 1.005-1.025 - Urine Protein 100 (2+) A Neg-Trace - mg/dL Urine Ketones Negative Negative - mg/dL Nitrite Urine Negative Negative - Leukocyte Esterase Urine Negative Negative - RBC Urine 0-2 0-2 - /HPF WBC Urine 0-5 0-5 - /HPF Squamous Epithelial Cell Urine 0-2 0-2 - /HP F Bacteria Urine None Seen None Seen - Hyaline Casts Urine 0-2 0-2 - /LPF L ab:Comprehensive [place]. Panel Fast (Order Date - 06/12/2024) (Collection Date & Time - 06/12/2024 09:50 AM) Value Reference Range Sodium 142 135-145 - mmol/L Bilirubin Total 0.8 0.0-1.0 - mg/dL Aspartate Amino Transferase 37 5-37 - U/L Alanine Aminotransferase 47 H 0-40 - U/L Total Protein 7.1 6.5-8.0 - g/dL Albumin Level 4.0 3.5-5.0 - g/dL Alkaline Phosphatase 83 39-117 - U/L Potassium 4.1 3.3-5.1 - mmol/L Chloride 107 96-108 - mmol/L Carbon Dioxide 27 22-29 - mmol/L Anion Gap 12 12-20 - Blood Urea Nitrogen 31 H 9-16 - mg/dL Creatinine 1.47 H 0.5-1.4 - mg/dL Estimated Glomerular Filt Rate 46 - Glucose Fasting 136 H 60-99 - mg/dL Calcium 9.8 8.4-10.2 - mg/dL L ab:Lipid Panel (Order Date 06/12/2024) (Collection Date & Time - 06/12/2024 09:50 AM) Value Reference Range Triglycerides 308 H <150 - mg/dL Cholesterol 130 <200 - mg/dL LDL Cholesterol Calculated 38 <100 - mg/dL HDL Cholesterol 31 L >40 - mg/dL L ab:PSA,Total (Free>4and<10) (Order Date 06/12/2024) (Collection Date & Time - 06/12/2024 09:50 AM) Value Reference Range PSA,Total (Free>4and<10) 4.26 H 0.00-4.00 - ng/ mL L ab:Microalbumin, Random (Order Date 06/12/2024) (Collection Date & Time - 06/12/2024 09:50 AM) Value Reference Range Creatinine Urine 80.67 - mg/dL Microalbumin Urine 805.0 - mg/L Microalbum Creatinine Ratio Ur 997.8 H <30 - ug/ mg cr L ab:Hemoglobin A1c (Order Date 06/12/2024) (Collection Date & Time - 06/12/2024 09:50 AM) Value Reference Range Hemoglobin A1c % 7.9 H <6.0 - % Estimated Average Glucose 180 - mg/dL * Examination: G eneral Examination: GENERAL APPEARANCE: w ell developed, well nourished, in no acute distress. HEAD: n ormocephalic, atraumatic. EYES: p upils equal, round, reactive to light and accommodation, sclera non-icteric. EARS: n ormal. ORAL CAVITY: m ucosa moist. THROAT: c lear. NECK/THYROID: n camelia supple, full range of motion, no cervical lymphadenopathy, no bruits. SKIN: w arm and dry, no suspicious lesions. HEART: r egular rate and rhythm, S1, S2 normal, no murmurs.? LUNGS: c lear to auscultation bilaterally. ABDOMEN: s oft, nontender, nondistended, bowel sounds present, normal, no organomegaly , no masses palpable. RECTAL EXAM: n ormal tone, no external hemorrhoids, no masses palpable, prostate normal, stool guaiac negative. MALE GENITOURINARY: w ith balanitis at present . EXTREMITIES: n o clubbing, cyanosis, or edema. NEUROLOGIC: n onfocal, motor strength normal upper and lower extremities, sensory exam intact has a foot drop both sides. PODIATRIC: n ormal pinprick, diminished pulse and normal light touch. FOOT EXAM: . Assessment: * Assessment: 1. T ype 2 diabetes mellitus with diabetic neuropathy - E11.40 (Primary) 2 .?Balanitis - N48.1 3 . F oot drop, left foot - M21.372 4 .?Hypertension, unspecified type - I10 5 . P rostatism - N40.0 6 . A nxiety - F41.9 7 . C olon cancer screening - Z12.11 8 .?Depression screening - Z13.31 Plan: * Treatment: 2. B alanitis Stop Dapagliflozin Propanediol Tablet, 10 MG, TAKE 1 TABLET DAILY. Notes: continue with nystatin 3. F oot drop, left foot Clinical Notes: would benefit from an AFO brace on bothe feet and to continue with his exercise? 4. H ypertension, unspecified type Continue Metoprolol Succinate Capsule ER 24 Hour Sprinkle, 25 MG, 1 capsule, Orally, Once a day;?Continue Tamsulosin HCl Capsule, 0.4 MG, TAKE 2 CAPSULES ONCE DAILY. 5. A nxiety Continue Citalopram Hydrobromide Tablet, 20 MG, TAKE ONE TABLET BY MOUTH EVERY DAY. * Procedure Codes: G 2211 Complex e/m visit add on * Preventive Medicine: Diabetes Care Plan: P atient Lifestyle Goals N eeds to maintain diet control.?Treatment Goals A 1C< 7. B arriers N eeds better diet control. S elf-Managment Plan I ncrease light exercise to 3 times a week for 30 minutes. E xpected Outcome m aintaining stable blood sugar levels within a target range. * Follow Up: 3 Months * * Sign off status: Completed true * Provider: Thomas Rosario MD Date: 0 06/19/2024 Generated for Magnus serrano/Magda/Zachary on: 04/25/2024 03:41 PM EST History and Physical Notes * HPI (History of Present Illness) Category Sub-Category Detail Notes Category Not es Symptom(s) patient is a 79 yo male here for review of recent labs and followhaving trouble with walking. had been throwing up. for 4 days.. no diarrhea. going to therapy up of chronic issues. Depression Screening PHQ-9 Little interest or pleasure in doing things: Not at all Feeling down, depressed, or hopeless: No t at all Trouble falling or staying asleep, or sl eeping too much: Not at all Feeling tired or having little energy: N ot at all Poor appetite or overeating: Not at all Feeling bad about yourself o r that you are a failure, or have let yourself or your family down: Not at all Trouble concentrating on thi ngs, such as reading the newspaper or watching television: Not at all Moving or speaking so slowly that other people could have noticed; or the opposite, being so fidgety or restless that you have been moving around a lot more than usual: Not at all Thoughts that you would be b jaspreet off or of hurting yourself in some way: Not at all Total Score: 0 Interpretation and Intervention Depression Ha todd Findings: Negative Follow-Up for Depression: : review of PH Q-9 found negative result, no follow-up needed SDOH Questions SDOH Questions In the past year have you been worried about losing housing?: No In the past year have you or any family members you live with been unable to get any of the following when it was really needed? Check all that apply:: None Fall Risk History Have you had any falls with injury i n the past year?: No Have you had two or more falls in the st year?: No Communication Needs Communication Needs Does the patient have a hearing impairment: No Does the patient have a vision impairmen t?: Yes If yes, what is the vision impairment?: Glasses Does the patient have a cognition impair ment?: No Examination Category Sub-Category Detail Notes Category Not es General Examination GENERAL APPEARANCE: well dev eloped, well nourished, in no acute distress HEAD: normocephalic, atrau matic EYES: pupils equal, round, reactive to light and accommodation, sclera non-icteric EARS: normal THROAT: clear NECK/THYROID: neck supple, full ra nge of motion, no cervical lymphadenopathy, no bruits HEART: regular rate and rhy thm, S1, S2 normal, no murmurs LUNGS: clear to auscultatio n bilaterally ABDOMEN: soft, nontender, non distended, bowel sounds present, normal, no organomegaly , no masses palpable NEUROLOGIC: nonfocal, motor stre ngth normal upper and lower extremities, sensory exam intact has a foot drop both sides SKIN: warm and dry, no marcia picious lesions EXTREMITIES: no clubbing, cyanosi s, or edema MALE GENITOURINARY: with balanitis at pr esent RECTAL EXAM: normal tone, no exte rnal hemorrhoids, no masses palpable, prostate normal, stool guaiac negative ORAL CAVITY: mucosa moist FOOT EXAM: Date: 06/19/2024 normal pinprick . diminished pulse. normal light touch. PODIATRIC: normal pinprick, dim inished pulse and normal light touch
--- OUTSIDE RECORDS SUMMARY | 2024-09-08 08:45 | XMS_ITS ---
Author Organization Pato Rosario MD Address [address] [place] [phone] Care Team Providers Care Social Security Benefits Interviewer Name Role Phone Pato Rosario Primary Care Provider Allergies No Known Allergies Results Component Value Reference Range Notes Hemoglobin A1c Reviewed date:09/08/2024 01:49:18 PM Interpretation: Performing Lab: Notes/Report: Hemoglobin A1c 8.0 Glucose, finger stick Reviewed date:09/08/2024 01:45:17 PM Interpretation: Performing Lab: Notes/Report: Value 244 REASON FOR VISIT 3 months Medications Medication SIG (Take, Route, Frequency, Duration) Notes Start Date End Date Status LORazepam 0.5 MG TAKE ONE TABLET BY MOUTH EVERY DAY NEEDED for 30 08/05/2023 Not-Taking Zithromax Z-Deric 250 MG 2 tablet [...] CAPSULES ON CE DAILY for 90 Active Citalopram Hydrobromide 20 MG TAKE ONE TABLET BY MOUTH EVERY DAY for 30 Active Nystatin 218013 UNIT/GM 1 application Externally Twice a day 06/18/2023 Active Allopurinol 300 MG TAKE ONE TABLET BY MOUTH EVERY DAY for 90 Active Metoprolol Succinate 25 MG 1 capsule Orally Once a day Active metFORMIN HCl 500 MG TAKE TWO TABLETS BY MOUTH EVERY MORNING AND TAKE ONE TABLET BY MOUTH AT BEDTIME Active Ipratropium [place] 0.06 % USE 2 SPRAYS IN EACH NOSTRIL TWO TIMES A DAY for 11 Active Zolpidem Tartrate 5 MG TAKE ONE TABLET B Y MOUTH EVERY EVENING AT BEDTIME for 30 11/12/2023 Active Simvastatin 40 MG 1/2 tablet in the evening Orally Once a day Active Tadalafil 20 MG 1 tablet Orally Once a day as needed for 30 day(s) 03/24/2021 Active OneTouch Ultra - TEST FOUR TIMES SYL Y DIRECTED for 25 Active Aspirin 81 MG 1 tablet Orally Once a day for 30 day(s) Active OneTouch Ultra Test - TEST 4XA DAY DIRECTED for 25 Active metFORMIN HCl 500 MG 2tablet with a meal Orally twice a day for 30 days 09/08/2024 Active Januvia 100 MG TAKE 1 TABLET DAILY Active Vital Signs Blood pressure systolic 120 mm Hg 09/09/19 25 Blood pressure diastolic 70 mm Hg 025 Height 71 in 09/08/2024 Weight 205 lbs 09/08/2024 BMI 28.59 kg/m2 09/08/2024 weight is up 8 pounds since 06-19-24 Encounters Encounter Location Date Provider Diagnosis Pato Rosario MD [address] [place] [address] [place] [phone] 09/08/2024 Pato Rosario Type 2 diabetes mellitus with diabetic neuropathy E11.40 and Neuropathy G62.9 Assessments Encounter Date Diagnosis (ICD Code) Assessment Notes Treatment Notes Treatment Clinical Notes Section Notes 09/08/2024 Type 2 diabetes mellitus with diabetic neuropathy (ICD-10 - E11.40) running a little high, patient verbalized understanding of change in medication 09/08/2024 Neuropathy (ICD-10 - G62.9) need last note from dr guerra in [facility]/ called office for note Plan Of Treatment Medication Medication Name Sig Start Date Stop Date Notes metFORMIN HCl 500 MG 2tablet with a meal Orally twice a day for 30 days 09/08/2024 Januvia 100 MG TAKE 1 TABLET DAILY Treatment Notes Assessment Notes Type 2 diabetes mellitus wit h diabetic neuropathy running a little high, patient verbalize d understanding of change in medication Neuropathy need last note from dr guerra in [facility]/ called office for note Next Appt Details Follow Up: 3 Months, Reason: dm Provider Name:Pato briones, 06/16/2025 08:15:00 AM, [address] [place] [address], [address], [phone], Provider Name:Pato pickettr, 06/22/2025 01:00:00 PM, [address] [place] [address], [place] [address], [place], [place], [phone], Progress Notes * Tee MARTE MDOB:1945 (79 yo M)Acc No.[id number]:09/08/2024 Progress Notes Patient: Tee COLLINS Provider: Thomas Rosario MD :1945 A ge:79 Y S ex:Male Date:09/08/2024 Address:[address] [place] [address] [id number] Subjective: * Chief Complaints: * 3 months * HPI: S ymptom(s): patient is a 79 yo male here for 3 month follow up visit/ has been to urologist ane neurologist/ fell yesterday in garage with balance problems. has to walk with sticks. F all Risk: History H ave you had any falls with injury in the past year? Y es 5-18-25 taking out the trash fell on right side , no ER Visit, H ave you had two or more falls in the past year? Y es patient has fallen 4-5 times in the past year, no Er visits required.. * ROS: G eneral/Constitutional: Denies C hills. D enies F atigue. D enies F ever. D enies H eadache. E NT: Denies S ore throat. E ndocrine: Denies D ifficulty sleeping. D enies D izziness.?Denies E xcessive sweating. D enies E xcessive thirst. A dmits F requent urination. R espiratory: Denies C ough. D enies S hortness of breath at rest. D enies S hortness of breath with exertion. G astrointestinal: Denies D iarrhea. D enies N ausea. * Medical History: * Surgical History: * Hospitalization/Major Diagno stic Procedure: * Medications: T akingAspirin 81 MG Tablet Chewable 1 tablet Orally Once a day OneTouch Ultra Test - Strip TEST 4XA DAY DIRECTED Tadalafil 20 MG Tablet 1 tablet Orally Once a day as needed OneTouch Ultra - Strip TEST FOUR TIMES DAILY DIRECTED Ipratropium [place] 0.06 % Solution USE 2 SPRAYS IN EACH NOSTRIL TWO TIMES A DAY Zolpidem Tartrate 5 MG Tablet TAKE ONE TABLET BY MOUTH EVERY EVENING AT BEDTIME Simvastatin 40 MG Tablet 1/2 tablet in the evening Orally Once a day Nystatin 188407 UNIT/GM Cream 1 application Externally Twice a day Allopurinol 300 MG Tablet TAKE ONE TABLET BY MOUTH EVERY DAY Metoprolol Succinate 25 MG Capsule ER 24 Hour Sprinkle 1 capsule Orally Once a day metFORMIN HCl 500 MG Tablet TAKE TWO TABLETS BY MOUTH EVERY MORNING AND TAKE ONE TABLET BY MOUTH AT BEDTIME Citalopram Hydrobromide 20 MG Tablet TAKE ONE TABLET BY MOUTH EVERY DAY Januvia 100 MG Tablet TAKE 1 TABLET DAILY Tamsulosin HCl 0.4 MG Capsule TAKE 2 CAPSULES ONCE DAILY Taking Aspirin 81 MG Tablet Chewable 1 tablet Orally Once a day Taking OneTouch Ultra Test - Strip TEST 4XA DAY DIRECTED Taking Tadalafil 20 MG Tablet 1 tablet Orally Once a day as needed Taking OneTouch Ultra - Strip TEST FOUR TIMES DAILY DIRECTED Taking Ipratropium [place] 0.06 % Solution USE 2 SPRAYS IN EACH NOSTRIL TWO TIMES A DAY Taking Zolpidem Tartrate 5 MG Tablet TAKE ONE TABLET BY MOUTH EVERY EVENING AT BEDTIME Taking Simvastatin 40 MG Tablet 1/2 tablet in the evening Orally Once a day Taking Nystatin 631579 UNIT/GM Cream 1 application Externally Twice a day Taking Allopurinol 300 MG Tablet TAKE ONE TABLET BY MOUTH EVERY DAY Taking Metoprolol Succinate 25 MG Capsule ER 24 Hour Sprinkle 1 capsule Orally Once a day Taking metFORMIN HCl 500 MG Tablet TAKE TWO TABLETS BY MOUTH EVERY MORNING AND TAKE ONE TABLET BY MOUTH AT BEDTIME Taking Citalopram Hydrobromide 20 MG Tablet TAKE ONE TABLET BY MOUTH EVERY DAY Taking Januvia 100 MG Tablet TAKE 1 TABLET DAILY Taking Tamsulosin HCl 0.4 MG Capsule TAKE 2 CAPSULES ONCE DAILY Not-Taking/PRNLORazepam 0.5 MG Tablet TAKE ONE TABLET [...] 5 mins times 3 for chest pain Medication List reviewed and reconciled with the patientNot- Taking/PRN LORazepam 0.5 MG Tablet TAKE ONE TABLET BY MOUTH EVERY DAY NEEDED Not- Taking/PRN Zithromax Z-Deric 250 MG Tablet 2 tablet on the first day, then 1 tablet daily for 4 days Orally Once a day Not-Taking/PRN Fluticasone Propionate 0.050 Milligram Suspension 2 PUFF EACH NOSTRIL DAILY Nasally Once a day Not-Taking/PRN Nitrostat 0.400 Sublingual Tablet 1 tablet under the tongue and allow to dissolve as needed Sublingual every 5 mins times 3 for chest pain Medication List reviewed and reconciled with the patient * Allergies: N .K.D.A.yes[Allergies Verified] Objective: * Vitals: H t: 71, Wt: 205, BMI:28.59, BP:120/70, Wt-k.99. weight is up 8 pounds since 06-19-24. * Examination: G eneral Examination: GENERAL APPEARANCE: a lert, well hydrated, in no distress.? HEAD: n ormocephalic. SKIN: g ood turgor. HEART: n o murmurs, rubs, gallops, regular rate and rhythm.? LUNGS: n o wheezes, rales, rhonchi, good air movement, clear to auscultation bilaterally. Assessment: * Assessment: 1. T ype 2 diabetes mellitus with diabetic neuropathy - E11.40 (Primary) 2 .?Neuropathy - G62.9 Plan: * Treatment: Value Reference Range H emoglobin A1c 8.0 ?LAB: Glucose, finger stick (Collection Date & Time - 09/08/2024)* Value Reference Range V alue 244 Notes: running a little high, patient verbalized understanding of change in medication??2.?Neuropathy? Notes: need last note from dr guerra in [facility]/ called office for note ?? * Procedure Codes: 8 2947 ASSAY, GLUCOSE, BLOOD QUANT, Modifiers: QW 54155 GLYCATED HEMOGLOBIN TEST, Modifiers: QW * Follow Up: 3 Months (Reason: dm) * * Sign off status: Completed true * Provider: Thomas Rosario MD Date: 0 09/08/2024 Generated for Magnus serrano/Magda/eTlyudmilasmitting on: 04/25/2024 03:46 PM EST History and Physical Notes * HPI (History of Present Illness) Category Sub-Category Detail Notes Category Not es Symptom(s) patient is a 79 yo male here for 3 month follow up visit/ has been to urologist ane neurologist/ fell yesterday in garage with balance problems. has to walk with sticks Fall Risk History Have you had any falls with injury in the past year?: Yes 09-07-24 taking out the trash fell on right side , no ER Visit Have you had two or more fal ls in the past year?: Yes patient has fallen 4-5 times in the past year, no Er visits required. Examination Category Sub-Category Detail Notes Category Not es General Examination GENERAL APPEARANCE: alert, w ell hydrated, in no distress HEAD: normocephalic HEART: no murmurs, rubs, ga llops, regular rate and rhythm LUNGS: no wheezes, rales, r honchi, good air movement, clear to auscultation bilaterally SKIN: good turgor
--- OUTSIDE RECORDS SUMMARY | 2024-09-09 03:47 | XMS_ITS ---
Author Organization Pato Rosario MD Address [address] [place] [phone] Care Team Providers Care Underwater Welder Name Role Phone Marlene Pato Primary Care Provider REASON FOR VISIT needs MRI lumbar spine Encounters Encounter Location Date Provider Diagnosis Pato Rosario MD [address] [place] [phone] 09/09/2024 Pato Rosario Spinal stenosis M48.00 Assessments Encounter Date Diagnosis (ICD Code) Assessment Notes Treatment Notes Treatment Clinical Notes Section Notes 09/09/2024 Spinal stenosis (ICD-10 - M48.00) Patient notified and will fax order to [facility] Plan Of Treatment Treatment Notes Assessment Notes Spinal stenosis Patient notified and will fax order to [facility] Pending Test Test Name Order Date MR lumbar spine wo con 09/09/2024 Next Appt Details Provider Name:Pato Gaalrza ier, 06/16/2025 08:15:00 AM, [address], [address], [place], [place], [phone], Provider Name:Pato Galarza ier, 06/22/2025 01:00:00 PM, [address], [address], [place], [place], [phone], Progress Notes * Tee MARTE MDOB:1945 (79 yo M)Acc No.[id number]:09/09/2024 Patient: So ACOSTA Tee Burt :1945 A ge:79 Y S ex:Male Address:[address] [place], [place] [address] [id number] Subjective: * Chief Complaints: * n eeds MRI lumbar spine * Medical History: * Surgical History: * Hospitalization/Major Diagno stic Procedure: * Medications: Objective: * Vitals: * Physical Examination: Assessment: * Assessment: 1. S imelda stenosis - M48.00 Plan: * Treatment: * Procedure Codes: * true * Date: Generated for Magnus serrano/Magda/eTlyudmilasmitting on: 04/25/2024 03:43 PM EST
--- OUTSIDE RECORDS SUMMARY | 2024-09-25 08:45 | XMS_ITS ---
Author Organization Pato Rosario MD Address [address] [place], [place] [phone] Care Team Providers Care Branch Manager Name Role Phone Marlene Pato Primary Care Provider Allergies No Known Allergies Results Component Value Reference Range Notes Glucose, finger stick Reviewed date:09/25/2024 01:43:13 PM Interpretation: Performing Lab: Notes/Report: Value 236 Reason For Referral Reason spinal stenosis Diagnosis 1 Spinal stenosis (M48 .00) Referral Organization Pato Rosario MD Referring Provider First Name Pato Referring Provider Last Name Marlene Referring Provider Speciality Internal M edicine Referred Provider [facility] Referred Provider Specialty Physical Med icine General Notes Veronica Stratton 0 09/25/2024 02:14:45 PM >info faxed MRI report Referral Priority Routine Referral Appointment Date 10/27/2024 REASON FOR VISIT must see discuss MRI results Medications Medication SIG (Take, Route, Frequency, Duration) Notes Start Date End Date Status Fluticasone Propionate 0.050 Milligram 2 PUFF EACH [...] day for 5 day(s) 03/23/2023 Not-Taki ng Aspirin 81 MG 1 tablet Orally Once a day for 30 day(s) Active DigiscendTouch Ultra Test - TEST 4XA DAY DIRECTED for 25 Active LORazepam 0.5 MG TAKE ONE TABLET BY MOUTH EVERY DAY NEEDED for 30 08/05/2023 Not-Taking metFORMIN HCl 500 MG 2tablet with a meal Orally twice a day for 30 days 09/08/2024 Active Januvia 100 MG TAKE 1 TABLET DAILY Active Tamsulosin HCl 0.4 MG TAKE 2 CAPSULES ON CE DAILY for 90 Active Citalopram Hydrobromide 20 MG TAKE ONE TABLET BY MOUTH EVERY DAY for 30 Active Zolpidem Tartrate 5 MG TAKE ONE TABLET B Y MOUTH EVERY EVENING AT BEDTIME for 30 11/12/2023 Active Simvastatin 40 MG 1/2 tablet in the evening Orally Once a day Active Metoprolol Succinate 25 MG 1 capsule Orally Once a day Active Nystatin 136339 UNIT/GM 1 application Externally Twice a day 06/18/2023 Active Allopurinol 300 MG TAKE ONE TABLET BY MOUTH EVERY DAY for 90 Active OneTouch Ultra - TEST FOUR TIMES SYL Y DIRECTED for 25 Active Ipratropium [place] 0.06 % USE 2 SPRAYS IN EACH NOSTRIL TWO TIMES A DAY for 11 Active Tadalafil 20 MG 1 tablet Orally Once a day as needed for 30 day(s) 03/24/2021 Active Vital Signs Blood pressure systolic 122 mm Hg 09/26/19 25 Blood pressure diastolic 60 mm Hg 025 Height 71 in 09/25/2024 Weight 207 lbs 09/25/2024 BMI 28.87 kg/m2 09/25/2024 weight is up 2 pounds since 09-08-24 Encounters Encounter Location Date Provider Diagnosis Pato Rosario MD [address] [place], [place] [phone] 09/25/2024 Pato Rosario Type 2 diabetes mellitus with diabetic neuropathy E11.40 and Spinal stenosis M48.00 Assessments Encounter Date Diagnosis (ICD Code) Assessment Notes Treatment Notes Treatment Clinical Notes Section Notes 09/25/2024 Type 2 diabetes mellitus with diabetic neuropathy (ICD-10 - E11.40) 09/25/2024 Spinal stenosis (ICD-10 - M48.00) discussed findings of recent MRi with patient, referral to [facility] in [facility]/ hoping that there is something that can be done Plan Of Treatment Treatment Notes Assessment Notes Spinal stenosis discussed findings o f recent MRi with patient, referral to [facility] in [facility]/ hoping that there is something that can be done Referrals Referral Date Details 09/25/2024 09/25/2024, spinal s tenosis, [facility] Next Appt Details Provider Name:Pato briones, 06/16/2025 08:15:00 AM, [address] [place] [address], [address], [place], [place], [phone], Provider Name:Pato briones, 06/22/2025 01:00:00 PM, [address] [place] [address], [address], [place], [place], [phone], Progress Notes * Tee MARTE MDOB:1945 (79 yo M)Acc No.[id number]:09/25/2024 Patient: So LAMBTee BUSTAMANTE Provider: Thomas Rosario MD :1945 A ge:79 Y S ex:Male Date:09/25/2024 Address:[address] [place] [address] [id number] Subjective: * Chief Complaints: * m ust see discuss MRI results * HPI: S ymptom(s): patient is a 79 yo male here for follow up to discuss recent MRI results. * ROS: G eneral/Constitutional: Denies C hills. D enies F atigue. D enies F ever. D enies H eadache. E NT: Denies S ore throat. R espiratory: Kendy C ough. Ranjan enchato S hortness of breath at rest. D enchato S hortness of breath with exertion. G astrointestinal: Kendy Woodruff iarrhea. D jaci N ausea. * Medical History: * Surgical History: * Hospitalization/Major Diagno stic Procedure: * Medications: T akingAspirin 81 MG Tablet Chewable 1 tablet Orally Once a day OneTouch Ultra Test - Strip TEST 4XA DAY DIRECTED Tadalafil 20 MG Tablet 1 tablet Orally Once a day as needed OneTouch Ultra - Strip TEST FOUR TIMES DAILY DIRECTED Ipratropium [place] 0.06 % Solution USE 2 SPRAYS IN EACH NOSTRIL TWO TIMES A DAY Zolpidem Tartrate 5 MG Tablet TAKE ONE TABLET BY MOUTH EVERY EVENING AT BEDTIME Simvastatin 40 MG Tablet 1/2 tablet in the evening Orally Once a day Nystatin 826419 UNIT/GM Cream 1 application Externally Twice a day Allopurinol 300 MG Tablet TAKE ONE TABLET BY MOUTH EVERY DAY Metoprolol Succinate 25 MG Capsule ER 24 Hour Sprinkle 1 capsule Orally Once a day Citalopram Hydrobromide 20 MG Tablet TAKE ONE TABLET BY MOUTH EVERY DAY Tamsulosin HCl 0.4 MG Capsule TAKE 2 CAPSULES ONCE DAILY metFORMIN HCl 500 MG Tablet 2tablet with a meal Orally twice a day Januvia 100 MG Tablet TAKE 1 TABLET DAILY Taking Aspirin 81 MG Tablet Chewable 1 tablet Orally Once a day Taking OneTouch Ultra Test - Strip TEST 4XA DAY DIRECTED Taking Tadalafil 20 MG Tablet 1 tablet Orally Once a day as needed Taking OneTouch Ultra - Strip TEST FOUR TIMES DAILY DIRECTED Taking Ipratropium [place] 0.06 % Solution USE 2 SPRAYS IN EACH NOSTRIL TWO TIMES A DAY Taking Zolpidem Tartrate 5 MG Tablet TAKE ONE TABLET BY MOUTH EVERY EVENING AT BEDTIME Taking Simvastatin 40 MG Tablet 1/2 tablet in the evening Orally Once a day Taking Nystatin 642543 UNIT/GM Cream 1 application Externally Twice a day Taking Allopurinol 300 MG Tablet TAKE ONE TABLET BY MOUTH EVERY DAY Taking Metoprolol Succinate 25 MG Capsule ER 24 Hour Sprinkle 1 capsule Orally Once a day Taking Citalopram Hydrobromide 20 MG Tablet TAKE ONE TABLET BY MOUTH EVERY DAY Taking Tamsulosin HCl 0.4 MG Capsule TAKE 2 CAPSULES ONCE DAILY Taking metFORMIN HCl 500 MG Tablet 2tablet with a meal Orally twice a day Taking Januvia 100 MG Tablet TAKE 1 TABLET DAILY Not-Taking/PRNLORazepam 0.5 MG Tablet TAKE ONE [...] 5 mins times 3 for chest pain * Allergies: N .K.D.A.yes[Allergies Verified] Objective: * Vitals: H t: 71, Wt: 207, BMI:28.87, BP:122/60, Wt-k.89. weight is up 2 pounds since 09-08-24. * Examination: G eneral Examination: GENERAL APPEARANCE: a lert, well hydrated, in no distress.? HEAD: n ormocephalic. Assessment: * Assessment: 1. T ype 2 diabetes mellitus with diabetic neuropathy - E11.40 (Primary) 2 .?Spinal stenosis - M48.00 Plan: * Treatment: Value Reference Range V alue 236 2.?Spinal stenosis? Notes: discussed findings of recent MRi with patient, referral to [facility] in [facility]/ hoping that there is something that can be done? Referral To:[facility]??Physical Medicine ?Reason:spinal stenosis * Procedure Codes: 8 2947 ASSAY, GLUCOSE, BLOOD QUANT, Modifiers: QW * * Sign off status: Completed true * Provider: Thomas Rosario MD Date: 0 09/25/2024 Generated for Magnus serrano/Magda/Manuelsmitting on: 04/25/2024 03:43 PM EST History and Physical Notes * HPI (History of Present Illness) Category Sub-Category Detail Notes Category Not es Symptom(s) patient is a 79 yo male here for follow up to discuss recent MRI results Examination Category Sub-Category Detail Notes Category Not es General Examination GENERAL APPEARANCE: alert, w ell hydrated, in no distress HEAD: normocephalic Consultation Request Notes Referral Date Referring Provider Referred Provider Not es 09/25/2024 Pato Rosario, [facility] stenosis
--- OUTSIDE RECORDS SUMMARY | 2024-12-09 09:00 | XMS_ITS ---
Author Organization Pato Rosario MD Address [address] [place] [phone] Care Team Providers Care Seasonal Greenery Bundler Name Role Phone Pato Rosario Primary Care Provider Allergies No Known Allergies Results Component Value Reference Range Notes Hemoglobin A1c Reviewed date:12/09/2024 02:09:02 PM Interpretation: Performing Lab: Notes/Report: Hemoglobin A1c 7.9 Glucose, finger stick Reviewed date:12/09/2024 02:02:31 PM Interpretation: Performing Lab: Notes/Report: Value 190 REASON FOR VISIT 3 month Medications Medication SIG (Take, Route, Frequency, [...] Nasally Once a day for 30 Not-Taking LORazepam 0.5 MG TAKE ONE TABLET BY MOUTH EVERY DAY NEEDED for 30 08/05/2023 Not-Taking Tamsulosin HCl 0.4 MG TAKE 2 CAPSULES ON CE DAILY for Active Simvastatin 40 MG 1/2 tablet in the evening Orally Once a day Active Nystatin 530180 UNIT/GM 1 application Externally Twice a day 06/18/2023 Active Metoprolol Succinate 25 MG 1 capsule Orally Once a day Active Citalopram Hydrobromide 20 MG TAKE ONE TABLET BY MOUTH EVERY DAY for 30 Active Allopurinol 300 MG TAKE ONE TABLET BY MOUTH EVERY DAY for 90 Active metFORMIN HCl 500 MG 2tablet with a meal Orally twice a day 09/08/2024 Active Ipratropium [place] 0.06 % USE 2 SPRAYS IN EACH NOSTRIL TWO TIMES A DAY for 11 Active Zolpidem Tartrate 5 MG TAKE ONE TABLET B Y MOUTH EVERY EVENING AT BEDTIME for 30 11/12/2023 Active OneTouch Ultra - TEST FOUR TIMES SYL Y DIRECTED for 25 Active Januvia 100 MG TAKE 1 TABLET DAILY Active Tadalafil 20 MG 1 tablet Orally Once a day as needed for 30 day(s) 03/24/2021 Active Aspirin 81 MG 1 tablet Orally Once a day for 30 day(s) Active OneTouch Ultra Test - TEST 4XA DAY DIRECTED for 25 Active Vital Signs Blood pressure systolic 122 mm Hg 12/10/19 25 Blood pressure diastolic 60 mm Hg 025 Height 71 in 12/09/2024 Weight 204 lbs 12/09/2024 BMI 28.45 kg/m2 12/09/2024 weight is down 3 pounds [facility] vanessa 6-5-25 Encounters Encounter Location Date Provider Diagnosis Pato Rosario MD [address] [place] [address] [address] [place], [place] [phone] 12/09/2024 Pato Rosario Type 2 diabetes mellitus with diabetic neuropathy E11.40 and Foot drop, left foot M21.372 Assessments Encounter Date Diagnosis (ICD Code) Assessment Notes Treatment Notes Treatment Clinical Notes Section Notes 12/09/2024 Type 2 diabetes mellitus with diabetic neuropathy (ICD-10 - E11.40) stable, will continue curent regiment 12/09/2024 Foot drop, left foot (ICD-10 - M21.372) has developed foot drop from his neuropathy. worse on the left. is going to get an afo brace for them Plan Of Treatment Medication Medication Name Sig Start Date Stop Date Notes metFORMIN HCl 500 MG 2tablet with a meal Orally twice a day 09/08/2024 Januvia 100 MG TAKE 1 TABLET DAILY Treatment Notes Assessment Notes Type 2 diabetes mellitus wit h diabetic neuropathy stable, will continue curent regiment Foot drop, left foot has developed foot drop from his neuropathy. worse on the left. is going to get an afo brace for them Next Appt Details Follow Up: 3 Months, Reason: Provider Name:Pato briones, 06/16/2025 08:15:00 AM, [address] [place] [address], [address] [place] [address], [phone], Provider Name:Pato briones, 06/22/2025 01:00:00 PM, [address] [place] [address], [address], [place], [place], [phone], Progress Notes * Tee MARTE MDOB:1945 (79 yo M)Acc No.[id number]:12/09/2024 Progress Notes Patient: So LAMBDIANNATee Provider: Thomas Rosario MD :1945 A ge:79 Y S ex:Male Date:12/09/2024 Address:[address] [place] [address] [id number] Subjective: * Chief Complaints: * 3 month * HPI: S ymptom(s): patient is a 79 yo male here for 3 month follow up visit. has a dropped foot. going to get afo brace. D epression Screening: PHQ-9 L ittle interest or pleasure in doing things M ore than half the days, F eeling down, depressed, or hopeless M ore than half the days, T rouble falling or staying asleep, or sleeping too much M ore than half the days, F eeling tired or having little energy M ore than half the days, P oor appetite or overeating N ot [...] N ot at all, T otal Score 8 , I nterpretation M ild Depression. I nterpretation and Intervention D epression Screening Findings P ositve - Review of PHQ-9 found positive for depression, F ollow-Up for Depression : Existing condition. * ROS: G eneral/Constitutional: Denies C hills. D enies F atigue. D enies F ever. D enies H eadache. E NT: Denies S ore throat. E ndocrine: Denies D ifficulty sleeping. D enies D izziness.?Denies E xcessive sweating. A dmits E xcessive thirst. A dmits F requent urination. R espiratory: Denies C ough. D enies S hortness of breath at rest. D enies S hortness of breath with exertion. G astrointestinal: Denies D iarrhea. D enies N ausea. G enitourinary: Denies A bdominal pain/swelling. A dmits F requent urination. D enies P ainful urination. U rinary incontinence a dmits. ? P sychiatric: Admits A nxiety. A dmits D epressed mood. D enies E ating disorder. D enies L oss of appetite. * Medical History: * Surgical History: * Hospitalization/Major Diagno stic Procedure: * Medications: T akingAspirin 81 MG Tablet Chewable 1 tablet Orally Once a day OneTouch Ultra Test - Strip TEST 4XA DAY DIRECTED Tadalafil 20 MG Tablet 1 tablet Orally Once a day as needed OneTouch Ultra - Strip TEST FOUR TIMES DAILY DIRECTED Ipratropium [place] 0.06 % Solution USE 2 SPRAYS IN EACH NOSTRIL TWO TIMES A DAY Zolpidem Tartrate 5 MG Tablet TAKE ONE TABLET BY MOUTH EVERY EVENING AT BEDTIME Simvastatin 40 MG Tablet 1/2 tablet in the evening Orally Once a day Nystatin 141793 UNIT/GM Cream 1 application Externally Twice a [...] TEST FOUR TIMES DAILY DIRECTED Taking Ipratropium [place] 0.06 % Solution USE 2 SPRAYS IN EACH NOSTRIL TWO TIMES A DAY Taking Zolpidem Tartrate 5 MG Tablet TAKE ONE TABLET BY MOUTH EVERY EVENING AT BEDTIME Taking Simvastatin 40 MG Tablet 1/2 tablet in the evening Orally Once a day Taking Nystatin 134372 UNIT/GM Cream 1 application Externally Twice a [...] Medication List reviewed and reconciled with the patientNot-Taking/PRN [...] Objective: * Vitals: H t: 71, Wt: 204, BMI:28.45, BP:122/60, Wt-k.53. weight is down 3 pounds since 09-25-24. * Examination: G eneral Examination: GENERAL APPEARANCE: p leasant, in no acute distress. HEAD: n ormocephalic. SKIN: g ood turgor. HEART: r egular rate and rhythm, no murmurs, rubs, gallops.? LUNGS: n o wheezes, rales, rhonchi, good air movement, clear to auscultation bilaterally. NEUROLOGIC: f oot drop bilaterally. Assessment: * Assessment: 1. T ype 2 diabetes mellitus with diabetic neuropathy - E11.40 (Primary) 2 .?Foot drop, left foot - M21.372 Plan: * Treatment: Value Reference Range H emoglobin A1c 7.9 ?LAB: Glucose, finger stick (Collection Date & Time - 12/09/2024)* Value Reference Range V alue 190 Notes: stable, will continue curent regiment??2.?Foot drop, left foot? Notes: has developed foot drop from his neuropathy. worse on the left. is going to get an afo bracefor them?? * Procedure Codes: 8 2947 ASSAY, GLUCOSE, BLOOD QUANT, Modifiers: QW 07253 GLYCATED HEMOGLOBIN TEST, Modifiers: QW * Follow Up: 3 Months * * Sign off status: Completed true * Provider: Thomas Rosario MD Date: 0 12/09/2024 Generated for Magnus serrano/Magda/Zachary on: 1 04/25/2024 03:41 PM EST History and Physical Notes * HPI (History of Present Illness) Category Sub-Category Detail Notes Category Not es Symptom(s) patient is a 79 yo male here for 3 month follow up visit. has a dropped foot. going to get afo brace Depression Screening PHQ-9 Little inte rest or pleasure in doing things: More than half the days Feeling down, depressed, or hopeless: Mo re than half the days Trouble falling or staying a sleep, or sleeping too much: More than half the days Feeling tired or having little energy: M ore than half the days Poor appetite or overeating: Not at all [...] some way: Not at all Total Score: 8 Interpretation: Mild Depression Interpretation and Intervention Depressi on Screening Findings: Positve - Review of PHQ-9 found positive for depression Follow-Up for Depression: : Existing con dition Examination Category Sub-Category Detail Notes Category Not es General Examination GENERAL APPEARANCE: pleasant, in n o acute distress HEAD: normocephalic HEART: regular rate and rhy thm, no murmurs, rubs, gallops LUNGS: no wheezes, rales, r honchi, good air movement, clear to auscultation bilaterally NEUROLOGIC: foot drop bilaterall y SKIN: good turgor
--- OUTSIDE RECORDS SUMMARY | 2025-01-30 08:15 | XMS_ITS ---
Author Organization Pato Rosario MD Address [address] [place] [phone] Care Team Providers Care General Surgery Physician Assistant Name Role Phone MarleneHebern Primary Care Provider REASON FOR VISIT HDF Immunizations Vaccine Route Administration Date Status Comme nts Influenza High Dose IM Intramuscular 01/30/2025 Administer ed Encounters Encounter Location Date Provider Diagnosis Pato Rosario MD [address] [place] [phone] 01/30/2025 Pato Rosario Encounter for administration of vaccine Z23 Assessments Encounter Date Diagnosis (ICD Code) Assessment Notes Treatment Notes Treatment Clinical Notes Section Notes 01/30/2025 Encounter for administration of vaccine (ICD-10 - Z23) Plan Of Treatment Next Appt Details Provider Name:Pato Galarza ier, 06/16/2025 08:15:00 AM, [address], [address], [place], [phone], Provider Name:Pato Galarza ier, 06/22/2025 01:00:00 PM, [address], [address], [place], [place], [phone], Progress Notes * Tee MARTE MDOB:1945 (79 yo M)Acc No.[id number]:01/30/2025 Progress Note Patient: Tee COLLINS Provider: Thomas Rosario MD :1945 A ge:79 Y S ex:Male Date:01/30/2025 Address:[address] [place], [place] [id number] Subjective: * Chief Complaints: * 1 . HDF. * Medical History: Objective: * Vitals: Assessment: * Assessment: 1. E ncounter for administration of vaccine - Z23 (Primary) Plan: * Treatment: * Immunizations: Influenza High Dose : 0.5 mL (Dose No:1) (Route: Intramuscular) given by Linda Coombs , Office Staff on Right Deltoid * Procedure Codes: 9 0662 FLU VACC PRSV FREE INC ANTIG, G0008 ADMN FLU VAC NO FEE SCHED SAME DAY * * The named appointment provid er may or may not be the originator of this progress note, and it is not deemed complete until electronically signed by the appointment provider. Sign off status: Pending * Provider: Thomas Rosario MD Date: 1 Generated for Magnus serrano/Magda/Daquanitting on: 04/25/2024 03:45 PM EST
--- OUTSIDE RECORDS SUMMARY | 2025-02-09 08:02 | XMS_ITS ---
Author Organization Pato Rosario MD Address [address] [place] [phone] Care Team Providers Care Knitting Machine Tender Name Role Phone Pato Rosario Primary Care Provider [phone] Medications Medication SIG (Take, Route, Fr equency, Duration) Notes Start Date End Date Status Zolpidem Tartrate 5 MG TAKE ONE TABLET B Y MOUTH EVERY EVENING for 30 02/09/2025 Active Encounters Encounter Location Date Provider Diagnosis Pato Rosario MD [address] [place], [place] [phone] 02/09/2025 Pato Rosario Plan Of Treatment Medication Medication Name Sig Start Date Stop Date Notes Zolpidem Tartrate 5 MG TAKE ONE TABLET B Y MOUTH EVERY EVENING for 30 02/09/2025 Next Appt Details Provider Name:Pato Galarza ier, 06/16/2025 08:15:00 AM, [address], [address], [place], [place], [phone], Provider Name:Pato Galarza ier, 06/22/2025 01:00:00 PM, [address] [facility], [address], [place], [place], [phone], Progress Notes * Tee MARTE MDOB:1945 (79 yo M)Acc No.[id number]:02/09/2025 Patient: So Tee ACOSTA :1945 A ge:79 Y S ex:Male Address: [place] [address] [address] * Refills Refill Zolpidem Tartrate Tablet, 5 MG, 30 Tablet, TAKE ONE TABLET BY MOUTH EVERY EVENING, 30, Refills=0 * true * Date: Generated for Magnus serrano/Magda/Manuelsmitting on: 04/25/2024 03:46 PM EST
[2025-02-23 13:34] LABS: Hematocrit 36.6 % (42.0-52.0); Hemoglobin 12.8 g/dl (14.0-18.0); Mean Corpuscular HGB Conc 35.0 g/dl (31.0-36.0); Mean Corpuscular Hemoglobin 30.6 pg (27.0-33.0); Mean Corpuscular Volume 87.6 fL (80.0-98.0); NRBC Abs Auto 0.000 X10*3/uL (0.0-0.012); NRBC Pct Auto 0.0 /100WBC (0.0-0.2); Platelet Count 131 X10*3/uL (160-400); Red Blood Count 4.18 X10*6/uL (4.60-5.80); White Blood Count 5.9 X10*3/uL (4.8-10.8)
[2025-02-23 13:55] LABS: Anion Gap 12 (12-20); Blood Urea Nitrogen 31 mg/dL (9-16); Calcium 9.9 mg/dL (8.4-10.2); Carbon Dioxide 27 mmol/L (22-29); Chloride 103 mmol/L (96-108); Estimated Glomerular Filt Rate 40; Potassium 4.5 mmol/L (3.3-5.1); Sodium 137 mmol/L (135-145)
[2025-02-23 14:08] LABS: Parathyroid Hormone Intact 67.3 pg/mL (8.7-77.1)
--- OUTSIDE RECORDS SUMMARY | 2025-02-23 15:43 | XMS_ITS | Patient Health Record ---
Author Organization Pato Rosario MD Address [address] [place], [place] [id number] Care Team Providers Care Hand Frame Surgical Elastic Knitter Name Role Phone Pato Rosario Primary Care Provider Allergies No Known Allergies Results Component Value Reference Range Notes Hemoglobin A1c Reviewed date:09/08/2024 01:49:18 PM Interpretation: Performing Lab: Notes/Report: Hemoglobin A1c 8.0 Hemoglobin A1c Reviewed date:12/09/2024 02:09:02 PM Interpretation: Performing Lab: Notes/Report: Hemoglobin A1c 7.9 Complete Blood Count Auto Di ff Reviewed date:06/12/2024 12:51:51 PM Interpretation: Performing Lab:[facility], [address] [place] [phone] Notes/Report: White Blood Count 7.6 4.8-10.8 X10*3/uL [...] NRBC Abs Auto 0.000 0.0-0.012 X10*3/uL Comprehensive [place]. Panel Fa st Reviewed date:06/12/2024 12:47:20 PM Interpretation: Performing Lab:[facility], [address] [place] [phone] Notes/Report: Sodium 142 135-145 mmol/L Potassium 4.1 [...] Panel Reviewed date:06/12/2024 12:43:28 PM Interpretation: Performing Lab:[address] [id number] Notes/Report: Triglycerides 308 <150 mg/dL Desirable Triglyceride: [...] (Free>4and<10) Reviewed date:06/12/2024 12:54:14 PM Interpretation: Performing Lab:[address] [address] Notes/Report: PSA,Total (Free>4and<10) 4.26 0.00-4.00 ng/mL PSA methodology: Snowden Alinity i Chemiluminescent Microparticle Immunoassay (CMIA) Microalbumin, Random Reviewed date:06/12/2024 04:53:34 PM Interpretation: Performing Lab:[facility], [address] [place] [phone] Notes/Report: Creatinine Urine 80.67 Microalbumin Urine 805.0 Microalbum/Creatinine Ratio Ur 997.8 <30 ug/mg cr Albumin/Creatinine Ratio Reference Ranges: Normal: < 30 ug/mg creatinine Microalbuminuria: 30 - 300 ug/mg creatinine Clinical Albuminuria: > 300 ug/mg creatinine Hemoglobin A1c Reviewed date:06/12/2024 12:43:17 PM Interpretation: Performing Lab:[facility], [address] [place] [address] Notes/Report: Hemoglobin A1c % 7.9 <6.0 % [...] average glucose, using the formula of the S1X-Quqwgvs Average Glucose study (ADAG), Diabetes Care, Vol.31,#8, Nov. 2007 UA ClnCatch+Micro w/rflx Cul t Reviewed date:06/12/2024 05:03:30 PM Interpretation: Performing Lab:[facility], [address] [place] [phone] Notes/Report: Urine, Clean Catch Color Urine Yellow Appearance Urine Clear PH 5.0 5.0-9.0 Glucose Urine UA >=1000 Negative mg/dL Urine Blood Negative Negative Specific [place] - Urine >= 1.030 1.005-1.025 Urine Protein 100 (2+) Neg-Trace mg/dL Urine Ketones Negative Negative mg/dL Nitrite Urine Negative Negative Leukocyte Esterase Urine Negative Negative RBC Urine 0-2 0-2 /HPF WBC Urine 0-5 0-5 /HPF Squamous Epithelial Cell Urine 0-2 0-2 /HPF Bacteria Urine None Seen None Seen Hyaline Casts Urine 0-2 0-2 /LPF SARS-CoV2/FLU/RSV Reviewed date:04/28/2024 12:46:42 PM Interpretation: Performing Lab:[facility] [address] Notes/Report: Influenza A PCR NEGATIVE Negative Influenza [...] by authorized laboratories. Testing performed on the Ceregene GeneXpert utilizing real-time RT-PCR. All SARS CoV2 and positive influenza A/B results are reported to [facility]. Glucose, finger stick Reviewed date:09/08/2024 01:45:17 PM Interpretation: Performing Lab: Notes/Report: Value 244 Glucose, finger stick Reviewed date:09/25/2024 01:43:13 PM Interpretation: Performing Lab: Notes/Report: Value 236 Glucose, finger stick Reviewed date:12/09/2024 02:02:31 PM Interpretation: Performing Lab: Notes/Report: Value 190 Basic Metabolic Panel Reviewed date:04/17/2024 04:48:46 PM Interpretation: Performing Lab:[address] [address] Notes/Report: Sodium 140 135-145 mmol/L Potassium 4.4 [...] Free and Total Reviewed date:06/19/2024 02:43:09 PM Interpretation:cback 06/19 psa Performing Lab:[address] [address] Notes/Report: Prostate Specific Ag Total 4.3 < OR = 4.0 ng/ mL Percent Free Prostate Spec Ag 19 >25 % (calc ) PSA(ng/mL) Free PSA(%) Estimated(x) Probability of Cancer(as%) 0-2.5 (*) Approx. 1 2.6-4.0(1) 0-27(2) 24(3) 4.1-10(4) 0-10 56 11-15 28 16-20 20 21-25 16 >or =26 8 >10(+) N/A >50 References:(1)Lori et al.:Urology 60: 469-474 (2001) (2)Lori et al.:J.Urol 168: 922-925 (2001) Free PSA(%) Sensitivity(%) Specificity(%) < or = 25 85 19 < or = 30 93 9 (3)Catalona et al.:COLTEN 277: 8612-2205 (1996) (4)Catalona et al.:COLTEN 279: 0304-8038 (1997) (x)These estimates vary with age, ethnicity, [...] mind. PSA was performed using the Radha [place] Immunoassay method. Values obtained from different assay methods cannot be used interchangeably. PSA levels, regardless of value, should not be interpreted as absolute evidence of the presence or absence of disease. THIS TEST WAS PERFORMED AT: [facility] [address] [address] PILAR MARIE MD Free Prostate Spec Ag 0.8 Reason For Referral Reason spinal stenosis Diagnosis 1 Spinal stenosis (M48 .00) Referral Organization Pato Rosario MD Referring Provider First Name Pato Referring Provider Last Name Marlene Referring Provider Speciality Internal M edicine Referred Provider [facility] Referred Provider Specialty Physical Med icine General Notes Veronica Stratton 0 09/25/2024 02:14:45 PM >info faxed MRI report Referral Priority Routine Referral Appointment Date 10/27/2024 Medications Medication SIG (Take, Route, Frequency, Duration) Notes Start Date End Date Status Ipratropium Lyndon 0.06 % INHALE TWO SPRAYS IN EACH NOSTRIL TWICE A DAY for 123 Active Allopurinol 300 MG TAKE ONE TABLET BY MOUTH EVERY DAY for 90 Active Januvia 100 MG TAKE 1 TABLET DAILY Active Simvastatin 40 MG 1/2 tablet in the evening Orally Once a day Active Nitrostat 0.400 1 tablet under the tongue and allow to dissolve as needed Sublingual every 5 mins times 3 for chest pain for 5 Not-Taking Nystatin 163660 UNIT/GM 1 application Externally Twice a day 06/18/2023 Active Zithromax Z-Deric 250 MG 2 tablet on the irst day, then 1 tablet daily for 4 days Orally Once a day for 5 day(s) 03/23/2023 Not-Taki ng metFORMIN HCl 500 MG TAKE TWO TABLETS BY MOUTH EVERY MORNING AND ONE TABLET AT BEDTIME for 120 Active Fluticasone Propionate 0.050 Milligram 2 PUFF EACH NOSTRIL DAILY Nasally Once a day for 30 Not-Taking Tadalafil 20 MG 1 tablet Orally Once a day as needed for 30 day(s) 03/24/2021 Active OneTouch Ultra - TEST FOUR TIMES SYL Y DIRECTED for 25 Active Aspirin 81 MG 1 tablet Orally Once a day for 30 day(s) Active Tamsulosin HCl 0.4 MG TAKE 2 CAPSULES ON CE DAILY for 90 Active OneTouch Ultra Test - TEST 4XA DAY DIRECTED for 25 Active LORazepam 0.5 MG TAKE ONE TABLET BY MOUTH EVERY DAY NEEDED for 30 02/09/2025 Active Metoprolol Succinate 25 MG 1 capsule Orally Once a day Active Zolpidem Tartrate 5 MG TAKE ONE TABLET B Y MOUTH EVERY EVENING for 30 02/09/2025 Active Citalopram Hydrobromide 20 MG TAKE ONE TABLET BY MOUTH EVERY DAY for 30 Active Immunizations Vaccine Route Administration Date Status Comme nts Shingles Unknown 08/04/2011 Administered Flu Vaccine IM Intramuscular 01/01/2012 Administered PPSV23 (Pnemovax) Unknown 01/16/2000 Administered Here in the office. Prevnar 13 IM Intramuscular 06/17/2012 Administered Flu Vaccine IM Intramuscular 01/21/2013 Administered Flu Vaccine Unknown 02/04/2014 Administered [facility] [place] Flu Vaccine Unknown 02/10/2015 Administered pt recieved the vaccine at [facility] in [facility]. PPSV23 (Pnemovax) IM Intramuscular 04/05/2015 Administered Fluarix Quadrivalent IM Intramuscular 01/17/2016 Administe red Fluarix Quadrivalent IM Intramuscular 02/02/2017 Administe red TDaP IM Intramuscular 10/31/2017 Administered pt was given the vaccine at [facility] in [place]. Shingrix Unknown 10/04/2017 Administered [facility] Shingrix IM Intramuscular 12/19/2017 Administered pt had the vaccine at [facility] in [place]. 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) Active confirmed Problem 813833553 Neuropathy (G62.9) Active confirmed Problem 41434175 Prostatism (N40.0) Active confirmed Problem 463643674 Tubular adenoma (D36.9) Active confirmed Problem 64455399 Anxiety (F41.9) Active confirmed Problem 69667881 Coronary atherosclerosis due to lipid rich plaque (I25.83) Active confirmed Problem Hypercalcemia (50084913) Hypercalcemia (E83.52) Active confirmed Problem 9389792 Primary insomnia (F51.01) Active confirmed Problem 0844690 Vasomotor rhinit is (J30.0) Active confirmed Problem 18747442056052436 Sciatica, righ t side (M54.31) Active confirmed Problem 91066463 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) Active confirmed Problem 887715406 History of kidne y stones (Z87.442) Active confirmed Problem 88149126 Obstructive slee p apnea (G47.33) Active confirmed Problem 428703744 Vasculogenic ere ctile dysfunction, unspecified vasculogenic erectile dysfunction type (N52.9) Active confirmed Problem 34495918 Dysthymia (F34.1) Active confirmed Problem 49178766 Claudication (I73.9) Active confirmed Problem 377560101 Pure hypercholesterolemia (E78.00) Active confirmed Problem 11553664 Hypoglycemia associated with diabetes (E11.649) Active confirmed Problem 43665900 Movement disorde r (G25.9) Active confirmed Problem 78899244 Acute idiopathic gout involving toe, 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) Active confirmed Problem 36794981 Hypertension, unspecified type (I10) Active confirmed Problem 098012272 Balance disorder (R26.89) Active confirmed Vital Signs Blood pressure diastolic 60 mm Hg 12/09/2024 alysha ght is down 3 pounds since 09-25-24 Height 71 in 12/09/2024 weight is down 3 pounds since 09-25-24 Blood pressure systolic 122 mm Hg 12/09/2024 weig ht is down 3 pounds since 09-25-24 Weight 204 lbs 12/09/2024 weight is down 3 pounds since 09-25-24 BMI 28.45 kg/m2 12/09/2024 weight is down 3 pounds since 09-25-24 Encounters Encounter Location Date Provider Diagnosis Pato Rosario MD [address] [place], [place] [id number] 06/12/2024 Pato Rosario Type 2 diabetes mellitus with diabetic neuropathy E11.40 ; Thrombocytopenia D69.6 ; Prostatism N40.0 and Hypertension, unspecified type I10 Pato Rosario MD [address] [place] [id number] 01/30/2025 Pato Rosario Encounter for administration of vaccine Z23 Pato Rosario MD [address] [place] [id number] 04/28/2024 Pato Rosario Respiratory infectio n J98.8 Pato Rosario MD [address] [id number] 06/19/2024 Pato Rosario Type 2 diabetes mellitus with diabetic neuropathy E11.40 ; Balanitis N48.1 ; Foot drop, left foot M21.372 ; Hypertension, unspecified type I10 ; Prostatism N40.0 ; Anxiety F41.9 ; Colon cancer screening Z12.11 and Depression screening Z13.31 Pato Rosario MD [address] [place] [address] [id number] 09/08/2024 Pato Rosario Type 2 diabetes mellitus with diabetic neuropathy E11.40 and Neuropathy G62.9 Pato Rosario MD [address] [place] [id number] 09/25/2024 Pato Rosario Type 2 diabetes mellitus with diabetic neuropathy E11.40 and Spinal stenosis M48.00 Pato Rosario MD [address] [id number] 12/09/2024 Pato Rosario Type 2 diabetes mellitus with diabetic neuropathy E11.40 and Foot drop, left foot M21.372 Pato Rosario MD [address] [id number] 09/09/2024 Pato Rosario Spinal stenosis M48. 00 Pato Rosario MD [address] [place] [id number] 02/09/2025 Pato Rosario Assessments Encounter Date Diagnosis (ICD Code) Assessment Notes Treatment Notes Treatment Clinical Notes Section Notes 06/12/2024 Type 2 diabetes mellitus with diabetic neuropathy (ICD-10 - E11.40) 01/30/2025 Encounter for administration of vaccine (ICD-10 - Z23) 04/28/2024 Respiratory infection (ICD-10 - J98.8) PATIENT GOING TO [facility] , ORDER FAXED TO PATIENT REG, patient verbalized understanding of medication and directions for use 06/19/2024 Type 2 diabetes mellitus with diabetic neuropathy (ICD-10 - E11.40) stop the farxiga as it causes the infection 06/19/2024 Balanitis (ICD-10 - N48.1) continue with nystatin 09/08/2024 Type 2 diabetes mellitus with diabetic neuropathy (ICD-10 - E11.40) running a little high, patient verbalized understanding of change in medication 09/25/2024 Type 2 diabetes mellitus with diabetic neuropathy (ICD-10 - E11.40) 09/25/2024 Spinal stenosis (ICD-10 - M48.00) discussed findings of recent MRi with patient, referral to [facility] in [facility]/ hoping that there is something that can be done 12/09/2024 Type 2 diabetes mellitus with diabetic neuropathy (ICD-10 - E11.40) stable, will continue curent regiment 12/09/2024 Foot drop, left foot (ICD-10 - M21.372) has developed foot drop from his neuropathy. worse on the left. is going to get an afo brace for them 09/09/2024 Spinal stenosis (ICD-10 - M48.00) Patient notified and will fax order to [facility] 06/12/2024 Thrombocytopenia (ICD-10 - D69.6) 06/19/2024 Foot drop, left foot (ICD-10 - M21.372) would benefit from an AFO brace on bothe feet and to continue with his exercise 09/08/2024 Neuropathy (ICD-10 - G62.9) need last note from dr guerra in [facility]/ called office for note 06/12/2024 Prostatism (ICD-10 - N40.0) 06/19/2024 Hypertension, unspecified type (ICD-10 - I10) 06/12/2024 Hypertension, unspecified type (ICD-10 - I10) 06/19/2024 Prostatism (ICD-10 - N40.0) 06/19/2024 Anxiety (ICD-10 - F41.9) 06/19/2024 Colon cancer screening (ICD-10 - Z12.11) 06/19/2024 Depression screening (ICD-10 - Z13.31) Plan Of Treatment Pending Test Test Name Order Date Electrocardiogram (EKG) 05/04/2016 Electrocardiogram (EKG) 05/30/2019 MRI BRAIN NO CONTRAST 04/20/2023 EMG 09/10/2023 MR lumbar spine wo con 09/09/2024 US arterial duplex LE BI 08/03/2022 US arterial duplex UE BI 07/28/2022 Next Appt Details Provider Name:Pato Galarza ier, 06/16/2025 08:15:00 AM, [address] [facility], [address], [place], [place], [phone], Provider Name:Pato Galarza ier, 06/22/2025 01:00:00 PM, [address], [address], [place], [place], [id number], Insurance Providers Payer Name Payer Address Payer Phone Subscriber Number Group Number Insured Name Patient Relationship to Insured Coverage Start Date Coverage End Date MEDICARE NHIC [address] [place] [address] [id number] Tee Marte Self - patient is the insured MED[employer] OF [employer] [facility] [id number] [place] [address] [id number] Tee Marte Self - patient is the insured Medical (General) History Medical History History ICD Code myocardial infarction thrombocytopenia diabetes mellitus colonoscopy done 01/15/04, 20/12, 01/08/13 - due in 5 years; colonoscopy done 07/18/17 w/Dr. Grijalva Elevated PSA ejection fraction 45% 2021
--- OUTSIDE RECORDS SUMMARY | 2025-02-23 15:43 | XMS_ITS | Patient Health Record ---
Author Organization [facility] Address [address] [place] [address] Care Team Providers Care Virtual Office Assistant Name Role Phone Pato Rosario MD Primary Care Provider Jon Sloan Jr Reason For Referral No Information Medications Medication SIG (Take, Route, Frequency, Duration) Notes Start Date End Date Status Allopurinol 100 MG 1 tablet Orally Once a day Active Losartan Potassium 50 MG 1 tablet Orally Once a day Active Aspir-81 81 MG 1 tablet Orally Once a day Active CoQ-10 100 MG 1 capsule with a calvin l Orally Once a day Active LORazepam 0.5 MG 1 tablet as needed O rally prn Active Toprol XL 50 MG 1 tablet Orally Once a day Active metFORMIN HCl 500 MG 3 tablet with meals Orally daily Active Colyte with Flavor Packs 240 GM As directed Orally Over the specified time.; Duration: 1 day(s) Active Fish Oil 1000 MG 1 capsule Orally Twi ce a day Active Zolpidem Tartrate 5 MG 1 tablet at bedti me Orally Once a day Active Januvia 50 MG 1 tablet Orally Once a day Active Immunizations Vaccine Route Administration Date Status Comme nts Flu vaccine no Preserv 3 and > Unknown 01/29/2017 Admin istered Problems Problem Type SNOMED Code ICD Code Onset Dates Problem Status W/U Status Risk Notes Problem History of polyp of colon (situation) (107308327) Personal history of colonic polyps (Z86.010) Active confirmed Problem Abnormal feces (314772954) Abnormal findings in stool (R19.5) Active confirmed Plan Of Treatment Future Test Test Name Order Date COLONOSCOPY 09/06/2012 COLONOSCOPY 06/20/2017 Insurance Providers Payer Name Payer Address Payer Phone Subscriber Number Group Number Insured Name Patient Relationship to Insured Coverage Start Date Coverage End Date MEDICARE OF [place] [address] [place] [address] [id number] ZENA FENG Self - patient is the insured MEDEX ATTN CLAIMS [address] [place] [phone] [id number] ZENA FENG Self - patient is the insured Medical (General) History Medical History History ICD Code Colonoscopy 12/2012 colon polyps coronary artery disease with NV Ischemic cardiomyopathy type II diabetes anemia hypertension nephrolithiasis Surgical History Surgery Date(Month/Year) stent placement cataract-lens implants tonsillectomy ESWL
== END 2025-02-23 12:30 | disposition home or self-care (01) ==
LOC: HO.10HDL 12:29
PROVIDERS: Visit Provider Internal Medicine Hypertension Specialist
DX: N20.0 Calculus of kidney (principal); N18.9 Chronic kidney disease, unspecified
CPT/HCPCS: 36415; 80048; 83970; 85027

== ENCOUNTER 2025-03-02 10:36 | Outpatient (AMB) | payer MEDICARE, SELFPAY ==
[2025-03-02 10:38] VITALS: BP 122/62; BMI 29.3
--- NOTE | 2025-03-02 10:38 | HO.NEPHOV ---
Vital Signs 03/02/25 10:38 Height 5 ft 11 in Weight 210 lb BMI 29.3 BP 122/62 Blood Pressure Location Rt brachial Position Sitting Intake Visit Reasons: 6 MO FU Land Manager Required: No Accompanied by: Self / Same As Patient Allergies No Known Allergies Allergy (Unknown, Verified 03/02/25 10:40) Medication List - Last Reconciled 03/02/25 by Donald Joy MD allopurinol 300 mg PO DAILY aspirin 81 mg PO DAILY citalopram 20 mg PO DAILY lorazepam 0.5 - 1 mg PO PRN metformin 500 mg PO TID metoprolol succinate ER 25 mg PO DAILY omega 8-zfq-cav-fish oil 100-160-1,000 mg (Fish Oil) 3000 mg daily simvastatin 20 mg PO BEDTIME sitagliptin phosphate (Januvia) 100 mg PO DAILY tamsulosin mg PO DAILY zolpidem 5 mg PO BEDTIME PRN HPI Comments Details: 79-year-old man with a showed nephrolithiasis and chronic kidney disease. He is here for semiannual follow-up. He has been having unsteady gait. Seen by Neurology underwent EMG and nerve conduction study He continues to take Tums. 05/20/24 Here for follow up ;No further renal stones.Has difficulty with DM ;Currently less active 09/01/24 DEveloped Balanitis- Farxiga was stopped. 3 months ago Blood sugar is still elevated c/o Back and leg pain 03/02/25 The patient is a 79-year-old male is here for follow up regarding CKD And nephrolithiasis. The patient has a history of hypertension and neuropathy, the latter being atypical as it lacks the common pins and needles sensation. The neuropathy has been present for about two years and is linked to disc problems causing leg pain. He has received epidural injections for his disc issues, which offered temporary relief, and is exploring further treatment options. Arthritis is also a contributing factor to his discomfort, and he is continuing therapy to manage his symptoms. [facility] Social History Alcohol intake: current Patient Tobacco Use Status: Former Tobacco user Physical Exam Vital Signs: Last Vital Signs BP 122/62 03/02/25 10:38 BMI result Body Mass Index 29.3 Comfortable Neck supple no JVD. Lungs entry equal no rales. Heart S1-S2 heard no gallop or rub. Abdomen soft nontender. Neuro alert awake oriented. No asterixis. Extremities no edema. Results Reviewed Nephrology Results: Hgb, (14.0-18.0) 12.8 g/dl L 02/23/25 WBC, (4.8-10.8) 5.9 X10*3/uL 02/23/25 Plt Count, (160-400) 131 X10*3/uL L 02/23/25 Sodium, (135-145) 137 mmol/L 02/23/25 Potassium, (3.3-5.1) 4.5 mmol/L 02/23/25 Chloride, (96-108) 103 mmol/L 02/23/25 Carbon Dioxide, (22-29) 27 mmol/L 02/23/25 BUN, (9-16) 31 mg/dL H 02/23/25 Creatinine, (0.5-1.4) 1.66 mg/dL H 02/23/25 Calcium, (8.4-10.2) 9.9 mg/dL 02/23/25 Phosphorus, (2.7-4.5) 2.4 mg/dL L 10/03/23 PTH Intact, (8.7-77.1) 67.3 pg/mL 02/23/25 Urine Protein, (Neg-Trace) 100 (2+) mg/dL H 06/12/24 Urine Creatinine 80.67 mg/dL 06/12/24 Assessment & Plan Assessment & Plan (1) Nephrolithiasis: Comment: Still has renal stones but asymptomatic Code(s): N20.0 - Calculus of kidney Category: Medical Plan: stay on low-sodium diet Increase fluid intake to maintain a urine output of 2 L per 24 hours. (2) CKD (chronic kidney disease): Comment: CKD in a setting of longstanding diabetes mellitus and nephrolithiasis. Renal function stable Code(s): N18.9 - Chronic kidney disease, unspecified Category: Medical Plan: Goal is to slow the progression of renal disease Continue to avoid nephrotoxic agents. (3) Hypercalcemia: Comment: Intact PTH was 69. He was consuming excessive amount of Tums. Code(s): E83.52 - Hypercalcemia Category: Medical Plan: Avoid Tums. Calcium normalized (4) Diabetes mellitus: Code(s): E11.9 - Type 2 diabetes mellitus without complications Category: Medical Plan: Goal A1c less than 7% Plan Will benefit from ACEi or ARB in view of proteinuria If SBP stays above 130, would consider adding Losartan 12.5 to 25 mg QD and titrate However, his BP remains relatively low Shall watch Orders: Orders Basic Metabolic Panel 6 Months N18.9 - Chronic kidney disease, unspecified Comprehensive Met. Panel 6 Months N18.9 - Chronic kidney disease, unspecified Coding Level of Care Code Est Pt Level 4 (56434) Diagnoses Nephrolithiasis N20.0 CKD (chronic kidney disease) N18.9 Hypercalcemia E83.52 Diabetes mellitus E11.9
--- OUTSIDE RECORDS SUMMARY | 2025-03-02 12:31 | XMS_ITS | Clinical Summary ---
Author Organization [address] [facility] Address [address] [place] [address] Phone Care Team Providers Care Data Management Analyst Name Role Phone Physician, Pcp Unknown Primary Care Provider Maribel vailable Encounters Date Type Department Care Team Description 01/22/2025 Lab Requisition [facility] - Main Lab [address] [facility] [place] [address] Sanjay Porras PA Benign essential microscopic hematuria from Last 3 Months Social History Tobacco Use Types Packs/Day Years Used Date Smoking Tobacco: Never Assessed Sex and Gender Information Value Date Recorded Sex Assigned at Not on file Legal Sex Male 11:31 AM EDT Gender Identity Not on file Sexual Orientation Not on file Plan of Treatment Health Maintenance Due Date Last Done Comments DTaP,Tdap,and Td Vaccines (1 - Tdap) 1964 Pneumococcal Vaccine: 50+ Ye ars (1 of 1 - PCV) 1995 Zoster Vaccines (1 of 2) 1995 RSV Immunization Adult Patie nts (1 - 1-dose 75+ series) 2020 Depression Screening 04/23/2024 COVID-19 Vaccine (1 - 2023-2 5 season) 2024 Influenza Vaccine (#1) 2024 Cholesterol Screening (Lipid Panel) 01/22/2025 Falls Risk Assessment 01/22/2025 Hepatitis C Screening 01/22/2025 Medicare Annual Wellness Visit 01/22/2025 Social Influencers of Health Screening 01/22/2025 HIB Vaccines Aged Out No longer eligi ble based on patient's age to complete this topic HPV Vaccines Aged Out No longer eligi ble based on patient's age to complete this topic Hepatitis A Vaccines Aged Out No long er eligible based on patient's age to complete this topic Hepatitis B Vaccines Aged Out No long er eligible based on patient's age to complete this topic IPV Vaccines Aged Out No longer eligi ble based on patient's age to complete this topic MMR Vaccines Aged Out No longer eligi ble based on patient's age to complete this topic Meningococcal ACWY Vaccine Aged Out N o longer eligible based on patient's age to complete this topic Meningococcal B Vaccine Aged Out No l onger eligible based on patient's age to complete this topic RSV Immunization Patients Un marleny 20 months Aged Out No longer eligible b ased on patient's age to complete this topic Varicella Vaccines Aged Out No longer eligible based on patient's age to complete this topic Procedures Procedure Name Priority Date/Time Associated Diagnosis Comments NON-GYNECOLOGIC CYTOLOGY Routine 01/20/2025 12:00 AM EDT Benign essential microscopic hematuria from Last 3 Months Results * Non-gynecologic cytology (01/20/2025 12:00 AM EDT) Final Diagnosis A. Urine, Voided, [id number]: Negative for high grade urothelial carcinoma. Scant cellularity. 02/10/2025 3:22 PM EDT [facility] at 1522 EDT Specimen A Adequacy Satisfactory for evaluation 02/10/2025 3:22 PM [facility] Clinical Information Benign essential microscopic hematuria R31.1 Urine cytology with reflex UroVysion (AUC/SHGUC) 02/10/2025 3:22 PM T [facility] Gross Description A. Urine, Voided, [id number]: Received one ThinPrep slide for cytology. 02/10/2025 3:22 PM EDT [facility] Disclaimer Unless otherwise specified, all tissue is 10% NB formalin fixed and paraffin embedded. Technical pathology services provided by [facility] at [address] [place] [address] [address], [place] [address] (CLIA #[id number]/Jose Lance MD, Pool Table Mechanic) 02/10/2025 3:22 PM [facility] Urine Urine specimen from urethra / Unknown 01/20/2025 01/22/2025 12:22 PM EDT [facility]jay [facility] CYTOLOGY ORDERABLES Final R esult [facility] [place] [address] [place] [address], [place] [phone] from Last 3 Months Insurance MEDICARE [facility] Care Teams Data Management Analyst Relationship Specialty Start Date End Date Physician, Pcp Unknown PCP - General 01/22/25
--- OUTSIDE RECORDS SUMMARY | 2025-03-02 12:31 | XMS_ITS | Clinical Summary ---
Author Organization [facility] Address [address] [place] [address] Phone Care Team Providers Care Garbage Stoker Name Role Phone Pato Rosario MD Primary Care Provider Allergies No known active allergies Medications omega-3 fatty acids (FISH OIL CONCENTRATE) 1,000 mg Cap Take 3 capsules by mouth daily. Active zolpidem (AMBIEN) 5 MG tablet Take 5 mg by mouth nightly at bedtime as needed. Active LORazepam (ATIVAN) 0.5 MG tablet Take 1 tablet by mouth nightly as needed. Active aspirin 81 MG EC tablet Take 1 tablet by mouth daily. Active allopurinol (ZYLOPRIM) 100 MG tablet Take 100 mg by mouth 2 (two) times a day. orally Twice a day Active metFORMIN (GLUCOPHAGE) 500 MG tablet Take 3 tablets by mouth daily with breakfast. Active JANUVIA 100 mg tablet 08/25/19 Active citalopram (CELEXA) 20 MG tablet Take 1 tablet by mouth every morning. 09/09/19 23 Active omega 2-zkn-yvc-fish oil 1,000 mg (120 mg-180 mg) Cap Take 1 capsule by mouth daily. Active SITagliptin phosphate (JANUVIA) 50 MG tablet Take 50 mg by mouth daily. Active coenzyme Q10 100 mg capsule Take 100 mg by mouth daily. Active tamsulosin (FLOMAX) 0.4 mg Cap Take 0.4 mg by mouth daily. Active dapagliflozin propanediol (FARXIGA) 10 mg tablet Take by mouth daily. Active ipratropium (ATROVENT) 42 mcg (0.06 %) nasal spray INHALE TWO SPRAYS IN EACH NOSTRIL TWICE A DAY 01/15/20 Active metoprolol succinate (TOPROL-XL) 25 MG 24 hr tablet Take 1 tablet by mouth every morning. 02/10/20 24 Active simvastatin (ZOCOR) 20 MG tabletIndicatio ns:Atherosclero sis of [place] coronary artery of [place] heart without angina pectoris TAKE ONE TABLET BY MOUTH DAILY AT BEDTIME 90 tablet 3 02/14/20 25 Active simvastatin (ZOCOR) 20 MG tabletIndicatio ns:Atherosclero sis of [place] coronary artery of [place] heart without angina pectoris Take 1 tablet (20 mg total) by mouth nightly at bedtime. 90 tablet 3 02/06/20 24 025 Discontinued Active Problems Problem Noted Date Diagnosed Date Gout 08/01/2019 Atherosclerosis of [place] co ronary artery of [place] heart without angina pectoris 09/08/2017 Assessment & Plan (02/20/2024 2:34 PM EDT): Continues to do well from a cardiovascular standpoint. Will continue to optimize his cardiac risk factors. He is on aspirin 81 mg daily, Toprol 25 mg daily, fish oil 1000 mg, simvastatin 20 mg daily. PCP is following lipid panel. LDL goal less than 70 mg/dL. SBP goal less than 130/80. He should follow heart healthy diet including low-sodium and to continue exercising. Patient is working with PT due to leg weakness as a result of being sedentary for 2 weeks following a virus. Mixed hyperlipidemia 09/08/2017 Assessment & Plan (02/20/2024 2:35 PM EDT): Continue fish oil and simvastatin 20 mg daily. Lipid panel has been ordered if PCP is not monitoring this however he states PCP is doing this. Thrombocytopenia 09/08/2017 Encounters Date Type Department Care Team Description 02/24/2025 2:00 PM EST Office Visit [facility] [address] [place] [address] Chapito Brasher MD Sharkey, Linda Ann, PT Balance problem (Primary Dx); Lumbar radiculopathy, chronic 02/17/2025 2:00 PM EDT Office Visit [facility] [address] [place] [address] Chapito Brasher MD Sharkey, Linda Amanda, PT Balance problem (Primary Dx); Lumbar radiculopathy, chronic 02/13/2025 Refill [facility] [address], [address] [place] [address] Cassie Persaud DNP Medication Refill 02/10/2025 2:00 PM EDT Office Visit [address] [address] Chapito Brasher MD Sharkey, Linda Ann, PT Balance problem (Primary Dx); Lumbar radiculopathy, chronic 02/05/2025 12:00 PM EDT Office Visit [address] [address] Chapito Brasher MD Sharkey, Linda Ann, PT Balance problem (Primary Dx); Lumbar radiculopathy, chronic 02/03/2025 9:30 AM EDT Office Visit [address], [address] [place] [address] Montana Meza MD Atherosclerosis of [place] coronary artery of [place] heart without angina pectoris (Primary Dx); Gout, unspecified cause, unspecified chronicity, unspecified site; Mixed hyperlipidemia; Thrombocytopenia 01/27/2025 11:30 AM EDT Office Visit [address] [address] Chapito Brasher MD Sharkey, Linda Ann, PT Balance problem (Primary Dx); Lumbar radiculopathy, chronic 01/27/2025 Plan of Care Documentation [address] [address] 01/09/2025 Telephone [facility] [address] [place] [address] [place] [address] Chapito Brasher MD adendum request (adendum request to [facility]) from Last 3 Months Social History Tobacco Use Types Packs/Day Years Used Date Smoking Tobacco: Former Cigarettes S tarted: 01/24/1968 Smokeless Tobacco: Never Education Answer Date Recorded Are you interested in more education? Not on jeanne e 08/18/2022 Are you concerned about learning? Not on file 08/18/2022 No 08/18/2022 No 08/18/2022 Digital Access Answer Date Recorded No 09/16/2022 No 09/16/2022 Reliable internet access at home? Not on file 09/16/2022 Device with a working camera? Not on file Sex and Gender Information Value Date Recorded Sex Assigned at Not on file Legal Sex Male 10:08 PM EDT Gender Identity Not on file Sexual Orientation Not on file Last Filed Vital Signs Vital Sign Reading Time Taken Comments Blood Pressure 120/60 02/20/2024 1:59 PM EDT Pulse 76 05/05/2024 2:27 PM EST Temperature - - Respiratory Rate - - Oxygen Saturation 99% 05/05/2024 2:27 PM EST Inhaled Oxygen Concentration - - Weight 95.3 kg (210 lb) 02/03/2025 9:37 AM EDT Height 180.3 cm (5' 11 ) 02/20/2024 1:59 PM EDT Body Mass Index 29.29 02/20/2024 1:59 PM EDT Plan of Treatment Upcoming Encounters Date Type Department Care Team (Late st Contact Info) Description 04/03/2025 2:00 PM EST Office Visit [facility] [address] [place] [address] Chapito Brasher MD [address] [place] [address], [address] [place] [address] Le Bucio, PT [address] [place] [address] 08/04/2025 11:45 AM EDT Office Visit [facility] [address] [place] [address] [address] Floor, [address] [place] [address] Montana Meza MD [address] [place] [address], [address] [address] Health Maintenance Due Date Last Done Comments CREATININE LEVEL 1945 DEPRESSION SCREENING 1957 SMOKING Hx and SMOKELESS TOBACCO SCREENING 1958 HEPATITIS C SCREENING 1963 PNEUMOCOCCAL VACCINES (50+ years) (1 of 1 - PCV) 1995 LIPID PANEL 04/06/2017 04/06/2016 RSV VACCINE (1 - 1-dose 75+ series) 2020 INFLUENZA VACCINE (#1) 2024 0, 01/28/2019, 02/19/2018, Additional history exists COVID-19 VACCINE (3 - 2024- season) 2024 06/23/2020, 05/26/2020 Adult Td,Tdap Booster 11/02/2027 11/01/2017 ZOSTER VACCINES Completed 12/19/2017, 09/21, 09/15/2017 HEPATITIS A VACCINES Aged Out No long er eligible based on patient's age to complete this topic HIB VACCINES Aged Out No longer eligi ble based on patient's age to complete this topic IPV VACCINES Aged Out No longer eligi ble based on patient's age to complete this topic MENINGOCOCCAL VACCINES (ACWY) Aged Out No longer eligible based on patient's age to complete this topic MENINGOCOCCAL VACCINES (B) Aged Out N o longer eligible based on patient's age to complete this topic Medical Devices Not on file Procedures Procedure Name Priority Date/Time Associated Diagnosis Comments OUTSIDE LDL Routine 04/06/2016 from Last 3 Months or Most Recently Relevant to Health Maintenance Results * (ABNORMAL) Outside LDL (04/06/2016) LDL - External 38(A) 50 - 250 mg/ml Historical Provider LAB BLOOD ORDERABLES Meg l Result from Last 3 Months or Most Recently Relevant to Health Maintenance Insurance MEDICARE PART A & B [employer] SUPPLEMENT MEDICARE PART A & B [employer] MED[employer] SUPPLEMENT MEDICARE PART A & B [employer] SUPPLEMENT MEDICARE PART A & B [employer] MEDEX SUPPLEMENT MEDICARE PART A & B [employer] MED[employer] SUPPLEMENT MEDICARE PART A & B [employer] MEDEX SUPPLEMENT MEDICARE PART A & B [employer] MEDEX SUPPLEMENT MEDICARE PART A & B [employer] MEDEX SUPPLEMENT MEDICARE PART A & B [employer] MEDEX SUPPLEMENT Care Teams Garbage Stoker Relationship Specialty Start Date End Date Pato Rosario MD [address] [place] [address] [place] [address] PCP - General 02/08/17 Additional Source Comments The information contained in this document represents components of the legal health record. It is not the complete legal health record.[facility]
--- OUTSIDE RECORDS SUMMARY | 2025-03-02 12:31 | XMS_ITS | Encounter Summary ---
Author Organization [facility] Address [address] [place] [address] Care Team Providers Care Blower Mechanic Name Role Phone Physician, Pcp Unknown Primary Care Provider Maribel vailable Encounter Details Date Type Department Care Team (Late st Contact Info) Description 01/22/2025 Lab Requisition [facility] - Main Lab [address] [facility] [place] [address] Sanjay Porras, GEORGINA [address] [place] [address] Benign essential microscopic hematuria Social History Tobacco Use Types Packs/Day Years Used Date Smoking Tobacco: Never Assessed Sex and Gender Information Value Date Recorded Sex Assigned at Not on file Legal Sex Male 11:31 AM EDT Gender Identity Not on file Sexual Orientation Not on file documented as of this encounter Plan of Treatment Not on file documented as of this encounter Procedures Procedure Name Priority Date/Time Associated Diagnosis Comments NON-GYNECOLOGIC CYTOLOGY Routine 01/20/2025 12:00 AM EDT Benign essential microscopic hematuria documented in this encounter Results * Non-gynecologic cytology (01/20/2025 12:00 AM EDT) Final Diagnosis A. Urine, Voided, [id number]: Negative for high grade urothelial carcinoma. Scant cellularity. 02/10/2025 3:22 PM EDT [facility] at 1522 EDT Specimen A Adequacy Satisfactory for evaluation 02/10/2025 3:22 PM EDT [facility] Clinical Information Benign essential microscopic hematuria R31.1 Urine cytology with reflex UroVysion (AUC/SHGUC) 02/10/2025 3:22 PM EDT [facility] Gross Description A. Urine, Voided, [id number]: Received one ThinPrep slide for cytology. 02/10/2025 3:22 PM EDT [facility] Disclaimer Unless otherwise specified, all tissue is 10% NB formalin fixed and paraffin embedded. Technical pathology services provided by [facility] [address] [place] [address] (CLIA #[id number]/Jose Lance MD, Soil Conservation Technician) 02/10/2025 3:22 PM EDT [facility] Urine Urine specimen from urethra / Unknown 01/20/2025 01/22/2025 12:22 PM EDT [facility] Vern ERICKSON LAB CYTOLOGY ORDERABLES Final R esult [facility] [address] [place] [address], documented in this encounter Visit Diagnoses Diagnosis Benign essential microscopic hematuria documented in this encounter Care Teams Blower Mechanic Relationship Specialty Start Date End Date Physician, Pcp Unknown PCP - General 01/22/25 documented as of this encounter
--- OUTSIDE RECORDS SUMMARY | 2025-03-02 12:31 | XMS_ITS | Clinical Summary ---
Author Organization [facility] Address [address] [place] [address] Phone Care Team Providers Care Freight Car Cleaner [employer] Name Role Phone Pato Rosario MD Primary Care Provider [phone] Allergies No known active allergies Medications fish [...] Visual Foot Exam 05/24/2020 Influenza Vaccine (#1) 2024 Pneumococcal Vaccine: Peds ( 0 to 5 Years) and At-Risk Patients (6 to 49 Years) Discontinued 02/19/2014 Hepatitis B Vaccine Aged Out No longe r eligible based on patient's age to complete this topic Insurance [facility] Medicare [facility] Medicare Care Teams Freight Car Cleaner [employer] Relationship Specialty Start Date End Date Pato Rosario MD [address] [place], [place] PCP - General 05/03/20
== END 2025-03-02 11:01 | disposition home or self-care (01) ==
LOC: HO.HKA 10:37
PROVIDERS: PCP Internal Medicine; Visit Provider Internal Medicine Hypertension Specialist
DX: N20.0 Calculus of kidney (principal); N18.9 Chronic kidney disease, unspecified; E83.52 Hypercalcemia; E11.9 Type 2 diabetes mellitus without complications
CPT/HCPCS: 99214

== ENCOUNTER → 2025-03-02 10:36 | Outpatient (BNVA) | payer MEDICARE, SELFPAY | PROVIDERS: PCP Internal Medicine; Visit Provider Internal Medicine Hypertension Specialist | DX: N20.0 Calculus of kidney (principal); E11.22 Type 2 diabetes mellitus with diabetic chronic kidney disease; N18.9 Chronic kidney disease, unspecified; E83.52 Hypercalcemia | CPT/HCPCS: 99212 ==